=== PATIENT | female | born 1935 | race African-American/Black ===

== ENCOUNTER 2018-06-08 09:47 | Inpatient (IN) | payer MEDICARE, OTHER ==
[2018-06-08] VITALS (27 sets, daily range): BP systolic 120–169; BP diastolic 61–111
[~2018-06-08] VITALS: Ht 167.6 cm; Wt 83.9 kg
[~2018-06-08 09:47] MED LIST: AMIODARONE HCL200 MG; AMLODIPINE BESY10 MG; CLONIDINE HCL0.2 MG PO; CLONIDINE HCL0.3 MG PO; HYDRALAZINE HCL50 MG PO; ISOSORBIDE DINI30 MG PO; LOPRESSOR25 MG PO; ULTRAM 50MG50 MG; Z.0.ASPIR 8181 MG PO; Z.0.BYSTOLIC10 MG PO; Z.0.CLONIDINE HCL0.2 PO; Z.0.CYMBALTA30 MG PO; Z.0.HYDRALAZINE HCL2 PO; Z.0.MOTRIN800 MG PO; Z.0.PLAVIX75 MG PO; Z.0.VITAMIN D3 1,01 PO; Z.6.FISH OIL 1,0001 PO; [UNRECOGNIZED DRUG - OTHER] GT
--- OUTSIDE RECORDS SUMMARY | 2018-06-08 09:52 | XMS REPORT | Summary of Care ---
Author Organization Unknown Address Unknown Phone Unavailable Encounter HQ Tyrone_lauro(KEELEY) [id number] Date(s): 11/14/14 - 11/14/14 [facility] [address] [place] [address]- [phone] Discharge Disposition: Home Physician Attending: Celi Parker MD Physician_Referring: Celi Parker MD Vital Signs No data available for this section Problem List Condition Effective Dates Status Health Status Informant Acid Resolved reflux(Confirmed) Anxiety(Confirmed) Active CAD - Coronary Active artery disease(Confirmed) DM - Diabetes Active mellitus(Confirmed) Gastritis(Confirmed) Active HTN - Active Hypertension(Confirm ed) Hypertension(Confirm Resolved ed) 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) Neuropathy(Confirmed Resolved ) Allergies, Adverse Reactions, Alerts Substance Reaction Severity Status codeine Active Medications No data available for this section Results No data available for this section Immunizations Vaccine Date Refusal Reason influenza virus vaccine, inactivated 10/05/14 Patient Refuses pneumococcal 23-valent vaccine 10/05/14 pneumococcal 23-valent vaccine 12/11/11 Procedures Procedure Date Related Diagnosis Body Site Back fusion Gallbladder operation Hysterectomy Knee replacement Social History Social History Type Response Smoking Status Never smoker; Exposure to Tobacco Smoke None; Cigarette Smoking Last 365 Days No; Reg Smoking Cessation Counseling No Assessment and Plan No data available for this section
--- OUTSIDE RECORDS SUMMARY | 2018-06-08 09:52 | XMS REPORT | Summary of Care ---
Author Author [facility] Organization [facility] Address Unknown Phone Unavailable Encounter HQ Mirir_lauro(FIN) [id number] Date(s): 07/31/15 - 07/31/15 [facility] [address] [place] [address]- Discharge Disposition: Home Attending Physician: Ruth Yañez MD Referring Physician: Ruth Yañez MD Vital Signs No data available for [...]
--- OUTSIDE RECORDS SUMMARY | 2018-06-08 09:52 | XMS REPORT | Summary of Care ---
Author Author [facility] Organization [facility] Address Unknown Phone Unavailable Encounter EWA Stratton(KEELEY) [id number] Date(s): 09/12/16 - 09/12/16 [facility] [address] [place] [address]- Discharge Disposition: Home or Self Care Attending Physician: Carlota Chicas MD Referring Physician: Carlota Chicas MD Vital Signs No data available for [...] No data available for this section Results CHEM PANEL Most recent to 1 oldest [Reference Range]: eGFR 83 mL/min/1.73m2 1 *NA* (09/12/16 11:03 AM) POC Creatinine 0.7 mg/dL [0.5-1.4 mg/dL] (09/12/16 11:03 AM) 1Result Comment: The eGFR is calculated using the CKD-EPI formula. In most young, healthy individuals the eGFR will be >90 mL/min/1.73m2. The eGFR declines with age. An eGFR of 60-89 may be normal in some populations, particularly the elderly, for whom the CKD-EPI formula has not been extensively validated. Use of the eGFR is not recommended in the following populations: Individuals with unstable creatinine concentrations, including patients and those with serious co-morbid conditions. Patients with extremes in muscle mass or diet. The data above are obtained from the National Kidney Disease Education Program ( NKDEP) which additionally recommends that when the eGFR is used in patients with extremes of body mass index for purposes of drug dosing, the eGFR should be mul tiplied by the estimated BMI. Immunizations Given and Recorded Vaccine Date Status Refusal Reason pneumococcal 23-valent vaccine 10/05/14 Given pneumococcal 23-valent vaccine 12/11/11 Given Not Given Vaccine Date Status Refusal Reason influenza virus vaccine, inactivated 10/05/14 Not Given Patient Refuses Procedures Procedure Date Related Diagnosis Body Site Back fusion Gallbladder operation Hysterectomy Knee replacement Social History Social History Type Response Smoking Status Never smoker; Exposure to Tobacco Smoke None; Cigarette Smoking Last 365 Days No; Reg Smoking Cessation Counseling No Assessment and Plan No data available for this section
--- OUTSIDE RECORDS SUMMARY | 2018-06-08 09:52 | XMS REPORT | Summary of Care ---
Author Author [facility] Organization [facility] Address Unknown Phone Unavailable Encounter HQ Mirir_lauro(FIN) [id number] Date(s): 08/07/16 - 08/07/16 [facility] [address] [place] [address]- Discharge Disposition: Home or Self Care Attending Physician: Ruth Yañez MD Referring Physician: [...] No data available for this section Immunizations Given and Recorded Vaccine Date Status [...]
--- OUTSIDE RECORDS SUMMARY | 2018-06-08 09:52 | XMS REPORT | Summary of Care ---
Author Author [facility] Organization [facility] Address Unknown Phone Unavailable Encounter HQ Enriquentr_lauro(FIN) [id number] Date(s): 12/14/15 - 12/14/15 [facility] [address] [place] [address]- Discharge Disposition: Home Attending Physician: Celi Parker MD Referring Physician: Celi Parker MD Vital Signs No data [...]
--- OUTSIDE RECORDS SUMMARY | 2018-06-08 09:52 | XMS REPORT | CCD ---
Author Author Auto Generated Organization [facility] Address Unknown Phone Unavailable Care Team Providers Care Front Counter Attendant Name Role Phone Natalie Garcia V RP Allergies, Adverse Reactions, Alerts Substance Reaction Status aspirin Canceled caffeine Canceled codeine Active Problem List Condition Effective Dates Status Back pain Active CAD - Coronary artery disease Active HTN - Hypertension Active Medications Medication Instructions Start Date End Date Status pneumococcal 0.5 ml, Route: IM, Drug Form: INJ, 08/16/2010 08/16/2010 Completed 23-valent vaccine Start date: 08/16/10 9:00:00, Stop date: 08/16/10 9:00:00 potassium chloride 20 mEq, 100 mL, Route: IVPB, Drug 11/26/2011 11/26/2011 Ordered form: INJ, ONCE, Start date: 11/26/11 12:10:00, Stop date: 11/26/11 12:10:00 pneumococcal 0.5 ml, Route: IM, Drug Form: INJ, 12/12/2008 12/13/2008 Completed 23-valent vaccine ONCALL, Start date: 12/12/08 18:05:50, Stop date: 01/11/09 17:50:50 Immunizations Vaccine Date Status pneumococcal 23-valent vaccine 12/13/2008 Not Done pneumococcal 23-valent vaccine 08/16/2010 Not Done Vital Signs Most recent to oldest [Reference Range]: 1 Height 165.10 cm (11/26/2011 10:36:00) Weight 74.545 kg (11/26/2011 10:36:00) Results CHEMISTRY Most recent to oldest [Reference Range]: 1 Sodium Lvl [135-145 mEq/L] 142 mEq/L (11/26/2011 10:30:00) Potassium Lvl [3.5-5.1 mEq/L] 3.4 mEq/L *LOW* (11/26/2011 10:30:00) Chloride Lvl [95-109 mEq/L] 108 mEq/L (11/26/2011 10:30:00) CO2 [24-32 mEq/L] 27 mEq/L (11/26/2011 10:30:00) AGAP [10.0-20.0 mEq/L] 10.4 mEq/L (11/26/2011 10:30:00) Creatinine Lvl [0.5-1.4 mg/dL] 0.9 mg/dL (11/26/2011 10:30:00) BUN [7-22 mg/dL] 14 mg/dL (11/26/2011 10:30:00) Glucose Lvl [70-99 mg/dL] 85 mg/dL 1 (11/26/2011 10:30:00) Calcium Lvl [8.5-10.5 mg/dL] 9.2 mg/dL (11/26/2011 10:30:00) 1Interpretive Data: Adult reference range values reflect the clinical guidelinesof the [place] [employer]. HEMATOLOGY Most recent to oldest [Reference Range]: 1 WBC [3.7-10.4 K/CMM] 7.4 K/CMM (11/26/2011 10:30:00) RBC [4.20-5.40 M/CMM] 4.08 M/CMM *LOW* (11/26/2011 10:30:00) Hgb [12.0-16.0 g/dL] 11.8 g/dL *LOW* (11/26/2011 10:30:00) Hct [36.0-48.0 %] 36.1 % (11/26/2011 10:30:00) MCV [81.0-99.0 fL] 88.6 fL (11/26/2011 10:30:00) MCH [27.0-31.0 pg] 28.9 pg (11/26/2011 10:30:00) MCHC [32.0-36.0 g/dL] 32.6 g/dL (11/26/2011 10:30:00) RDW [11.5-14.5 %] 14.0 % (11/26/2011 10:30:00) Platelet [133-450 K/CMM] 164 K/CMM (11/26/2011 10:30:00) MPV [7.4-10.4 fL] 7.8 fL (11/26/2011 10:30:00) Segs [45.0-75.0 %] 65.4 % (11/26/2011 10:30:00) Lymphocytes [20.0-40.0 %] 24.6 % (11/26/2011 10:30:00) Monocytes [2.0-12.0 %] 6.5 % (11/26/2011 10:30:00) Eosinophils [0.0-4.0 %] 2.8 % (11/26/2011 10:30:00) Basophils [0.0-1.0 %] 0.7 % (11/26/2011 10:30:00) Segs-Bands # [1.5-8.1 K/CMM] 4.8 K/CMM (11/26/2011 10:30:00) Lymphocytes # [1.0-5.5 K/CMM] 1.8 K/CMM (11/26/2011 10:30:00) Monocytes # [0.0-0.8 K/CMM] 0.5 K/CMM (11/26/2011 10:30:00) Eosinophils # [0.0-0.5 K/CMM] 0.2 K/CMM (11/26/2011 10:30:00) Basophils # [0.0-0.2 K/CMM] 0.0 K/CMM (11/26/2011 10:30:00) PT [12.0-14.7 seconds] 12.9 seconds (11/26/2011 10:30:00) INR [0.85-1.17] 0.97 2 (11/26/2011 10:30:00) PTT [22.9-35.8 seconds] 32.8 seconds 3 (11/26/2011 10:30:00) 2Interpretive Data: RECOMMENDED RANGES FOR PROTIME INR: 2.0-3.0 for most medical and surgical thromboembolic states. 2.5-3.5 for artificial heart valves and recurrent embolism.INR SHOULD BE USED ONLY FOR PATIENTS ON STABLE ANTICOAGULANT THERAPY. 3Interpretive Data: Heparin Therapeutic Range: 57 - 92 Seconds
--- OUTSIDE RECORDS SUMMARY | 2018-06-08 09:52 | XMS REPORT | Continuity of Care Document ---
Author Author [facility] Interface Address Unknown Phone Unavailable Problems Problem Status Onset Date Classification Date Reported Comments Source CHF (CONGESTIVE HEART FAILURE), HEADACHE Active 03/29/2018 [facility] ELEVATED R/P Active 03/29/2018 [facility] Encounter for screening mammogram for malignant neoplasm of breast 09/02/2017 12/07/2017 [facility] SCREENING Active 08/03/2017 [facility] Discharge Diagnosis: Acute non intractable tension-type headache 05/05/2017 05/08/2017 [facility] Discharge Diagnosis: Essential hypertension 05/05/2017 05/08/2017 [facility] HYPERTENSION Active 05/05/2017 [facility] HTN UNCONTROLLED Active 03/22/2017 [facility] ELEVATED BLOOD PRESSURE Active 03/22/2017 [facility] E04.1 Active 01/11/2017 [facility] DX: K59.00=CONSTIPATION, UNSPECIFIED, K2 Active 09/10/2016 [facility] ROUTINE Active 07/02/2016 [facility] 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50 Active 11/24/2011 [facility] RTN Active 06/16/2011 [facility] IBS, GE REFLUX W/O ESOPHAGITIS, CONSTIPATION ENTE Active 04/24/2011 [facility] Back pain Active Problem 03/06/2012 [facility] CAD - Coronary artery disease Active Problem 03/06/2012 [facility] HTN - Hypertension Active Problem 12/14/2011 [facility] [place] Anxiety Active Problem 03/06/2012 [facility] DM - Diabetes mellitus Active Problem 03/06/2012 [facility] Gastritis Active Problem 03/06/2012 [facility] HTN - Hypertension Active Problem 03/06/2012 [facility] Acid reflux Resolved Problem 12/07/2017 [facility] Anxiety Active Problem 12/07/2017 [facility] CAD - Coronary artery disease Active Problem 12/07/2017 [facility] DM - Diabetes mellitus Active Problem 01/18/2017 [facility] Gastritis Active Problem 12/07/2017 [facility] HTN - Hypertension Active Problem 12/07/2017 [facility] Hypertension Active Problem 12/07/2017 [facility] Neuropathy Active Problem 12/07/2017 [facility] DM (<span [id number]</span>) Active Problem 12/07/2017 [facility] Hyperlipemia Active Problem 12/07/2017 [facility] Stented coronary artery Active Problem 12/07/2017 [facility] SCREEN MAMMOGRAM NEC Active [facility] IRRITABLE BOWEL SYNDROME Active [facility] CONSTIPATION NOS Active [facility] ESOPHAGEAL REFLUX Active [facility] LUMBAR SPINE Active [facility] CHEST PAIN NOS Active [facility] CRNRY ATHRSCL NATVE V[employer] Active [facility] CYST OF THYROID Active [facility] ABDMNAL PAIN OTH SPCF ST Active [facility] NONTOX MULTINODUL GOITER Active [facility] ENCNTR SCREEN MAMMOGRAM FOR MALIGNANT NE Active [facility] NONTOXIC MULTINODULAR GOITER Active [facility] CONSTIPATION, UNSPECIFIED Active [facility] NONTOXIC SINGLE THYROID NODULE Active [facility] ESSENTIAL (PRIMARY) HYPERTENSION Active [facility] HEART FAILURE, UNSPECIFIED Active [facility] HEADACHE Active [facility] Medications Medication Details Route Status Patient Instructions Ordering Provider Order Date Source NIFEdipine 60 mg oral tablet, extended release 60 mg=1 tab, PO, Q12H, # 30 tab, 0 Refill(s) Active 03/31/2017 [facility] AMIODarone 200 mg oral tablet 200 mg=1 tab, PO, Daily, # 30 tab, 0 Refill(s) Active 03/31/2017 [facility] Docusate Sodium 100 MG Oral Capsule [Colace] 100 mg, 1 cap, Route: PO, Drug form: CAP, BID, Dosing Weight 75, kg, PRN Constipation, Start date: 03/28/17 23:16:00 CDT, Duration: 30 day, Stop date: 04/27/17 23:15:00 CDTNotes: (Same as: Colace) (Do Not Crush) No Longer Active 03/29/2017 [facility] Amiodarone 200 mg, 1 tab, Route: PO, Drug form: TAB, Daily, Dosing Weight 75, kg, Start date: 03/27/17 21:00:00 CDT, Duration: 30 day, Stop date: 04/26/17 9:00:00 CDTNotes: (Same as: Cordarone) No Longer Active 03/28/2017 [facility] NIFEdipine 60 mg oral tablet, extended release 60 mg, 1 tab, Route: PO, Drug form: ERTAB, Q12H, Dosing Weight 75, kg, Start date: 03/25/17 21:00:00 CDT, Duration: 30 day, Stop date: 04/24/17 9:00:00 CDTNotes: (Same as: Adalat CC, Procardia XL) Give on empty stomach. Take 1 hour before or 2 hours after meal; "Avoid grapefruit and grapefruit juice". Do not crush No Longer Active 03/26/2017 [facility] Protonix 40 mg, 1 tab, Route: PO, Drug form: ECTAB, Before Dinner, Dosing Weight 75, kg, Start date: 03/24/17 16:30:00 CDT, Duration: 30 day, Stop date: 04/22/17 16:30:00 CDTNotes: Tablet should not be chewed or crushed. (Same as: Protonix) No Longer Active 03/24/2017 [facility] Maalox Advanced Regular Strength SUSP 30 mL, Route: PO, Drug Form: SUSP, Dosing Weight 75, kg, Q8H, PRN Heartburn, NOW, Start date: 03/24/17 16:11:00 CDT, Duration: 30 day, Stop date: 04/23/17 16:10:00 CDTNotes: (aluminum hydroxide-magnesium hyd-simethicone [phone]/5ml 30 ml ud TANNA) No Longer Active 03/24/2017 [facility] Spironolactone 50 mg, 1 tab, Route: PO, Drug form: TAB, Daily, Dosing Weight 75, kg, Start date: 03/24/17 9:00:00 CDT, Duration: 30 day, Stop date: 04/22/17 9:00:00 CDTNotes: (Same As: Aldactone) Inactive 03/24/2017 [facility] Acetylcysteine 200 MG/ML Inhalant Solution 600 mg, 3 mL, Route: PO, Drug form: SOLN, Q12H, Dosing Weight 75, kg, Start date: 03/24/17 9:00:00 CDT, Duration: 4 doses or times, Stop date: 03/25/17 21:00:00 CDT No Longer Active 03/24/2017 [facility] Lovenox 40 mg, 0.4 mL, Route: SUB-Q, Drug form: INJ, [id number], Dosing Weight 75, kg, Start date: 03/24/17 9:00:00 CDT, Duration: 30 day, Stop date: 04/22/17 9:00:00 CDTNotes: (Same as: Lovenox) No Longer Active 03/24/2017 [facility] sodium chloride 0.45% 1000 ml INJ 1,000 mL 1,000 mL, Rate: 75 ml/hr, Infuse over: 13.3 hr, Route: IV, Dosing Weight 75 kg, Total Volume: 1,000, Start date: 03/24/17 8:43:00 CDT, Duration: 30 day, Stop date: 04/23/17 8:42:00 CDT No Longer Active 03/24/2017 [facility] Digoxin 500 microgram, 2 mL, Route: IV, Drug form: INJ, ONCE, Dosing Weight 75, kg, Start date: 03/23/17 18:30:00 CDT, Stop date: 03/23/17 18:30:00 CDTNotes: (Same as: Lanoxin) Inactive 03/23/2017 [facility] Clonidine 0.2 mg, 1 tab, Route: PO, Drug form: TAB, Q12H, Dosing Weight 75, kg, Priority: NOW, Start date: 03/23/17 18:03:00 CDT, Duration: 30 day, Stop date: 04/22/17 9:00:00 CDTNotes: (Same As: Catapres) No Longer Active 03/23/2017 [facility] Nicardipine 40 mg, 200 mL, Rate: Titrate, Start Dose: 5 mg/hr, Titration: 2.5 mg/hr every 15 minutes, Goal(s): to keep SBP Notes: Same as: Cardene Concentration: (0.2 mg /1 ml ) No Longer Active 03/23/2017 [facility] Morphine 3 mg, 0.75 mL, Route: IV, Drug form: SOLN, Q2H, Dosing Weight 75, kg, PRN Pain Score 4-6, Start date: 03/23/17 10:37:00 CDT, Duration: 30 day, Stop date: 04/22/17 10:36:00 CDTNotes: (Same as:MORPhine Sulfate) No Longer Active 03/23/2017 [facility] Visipaque 75 mL, Route: IV, Drug form: SOLN, ONCE, Dosing Weight 75, kg, Start date: 03/23/17 9:08:00 CDT, Stop date: 03/23/17 9:08:00 CDTNotes: (Same as: Visipaque). WASTE: F/P - Black; E - Advanced Magn[facility] Lab Trash Bin No Longer Active 03/23/2017 [facility] Plavix 75 mg, 1 tab, Route: PO, Drug form: TAB, Daily, Dosing Weight 75, kg, Start date: 03/23/17 9:00:00 CDT, Duration: 30 day, Stop date: 04/21/17 9:00:00 CDTNotes: (Same As: Plavix) No Longer Active 03/23/2017 [facility] NIFEdipine 60 mg oral tablet, extended release 60 mg, 1 tab, Route: PO, Drug form: ERTAB, BID, Dosing Weight 75, kg, Start date: 03/23/17 9:00:00 CDT, Duration: 30 day, Stop date: 04/21/17 21:00:00 CDTNotes: (Same as: Adalat CC, Procardia XL) Give on empty stomach. Take 1 hour before or 2 hours after meal; "Avoid grapefruit and grapefruit juice". Do not crush Inactive 03/23/2017 [facility] Streptococcus pneumoniae serotype 1 capsular antigen diphtheria [id number] protein conjugate vaccine / Streptococcus pneumoniae serotype 14 capsular antigen diphtheria [id number] protein conjugate vaccine / Streptococcus pneumoniae serotype 18C capsular antigen d 0.5 mL, Route: IM, Drug Form: INJ, Daily, Start date: 03/23/17 9:00:00 CDT, Stop date: 03/23/17 21:00:00 CDTNotes: Shake well prior to use (Same as: Prevnar 13) No Longer Active 03/23/2017 [facility] Zofran 4 mg, 2 mL, Route: IV, Drug form: INJ, Q4H, Dosing Weight 75, kg, PRN as needed for nausea/vomiting, Start date: 03/23/17 7:56:00 CDT, Duration: 30 day, Stop date: 04/22/17 7:55:00 CDTNotes: (Same as: Zofran) MEDICATION WASTE Product Size: 4 mg Product Wasted: _0__ mg No Longer Active 03/23/2017 [facility] Dilaudid 0.5 mg, 0.5 mL, Route: IVP, Drug form: INJ, ONCE, Dosing Weight 75, kg, Priority: STAT, Start date: 03/23/17 2:32:00 CDT, Stop date: 03/23/17 2:32:00 CDT Inactive 03/23/2017 [facility] Tylenol 650 mg, 2 tab, Route: PO, Drug form: TAB, Q6H, Dosing Weight 75, kg, PRN Pain Score 1-3, Start date: 03/22/17 23:26:00 CDT, Duration: 30 day, Stop date: 04/21/17 23:25:00 CDTNotes: Do not exceed 4 gm/day. (Same as: Tylenol) No Longer Active 03/23/2017 [facility] NIFEdipine 60 mg oral tablet, extended release 60 mg, 1 tab, Route: PO, Drug form: ERTAB, Q12H, Dosing Weight 75, kg, Start date: 03/22/17 21:00:00 CDT, Duration: 30 day, Stop date: 04/21/17 9:00:00 CDT No Longer Active 03/23/2017 [facility] metoprolol tartrate 100 mg, 2 tab, Route: PO, Drug form: TAB, Q12H, Dosing Weight 75, kg, Start date: 03/22/17 21:00:00 CDT, Duration: 30 day, Stop date: 04/21/17 9:00:00 CDTNotes: (Same as: Lopressor) Inactive 03/23/2017 [facility] Bystolic 20 mg, 2 tab, Route: PO, Drug form: TAB, BID, Dosing Weight 75, kg, Start date: 03/22/17 21:00:00 CDT, Duration: 30 day, Stop date: 04/21/17 9:00:00 CDTNotes: (same as: Bystolic) No Longer Active 03/23/2017 [facility] Mupirocin 0.02 MG/MG Nasal Ointment [Bactroban] 1 appl, Route: NASAL, Q12H, Drug form: OINT, Start date: 03/22/17 21:00:00 CDT, Duration: 5 day, Stop date: 03/27/17 9:00:00 CDT, MRSA decolonization No Longer Active 03/23/2017 [facility] Hydralazine 20 mg, 1 mL, Route: IV, Drug form: INJ, Q4H, Dosing Weight 75, kg, PRN Elevated BP, Start date: 03/22/17 17:25:00 CDT, Duration: 30 day, Stop date: 04/21/17 17:24:00 CDT, SBP > 160Notes: (Same as: Ap resoline) Push over 5 minutes No Longer Active 03/22/2017 [facility] Bystolic 20 mg, 2 tab, Route: PO, Drug form: TAB, BID, Dosing Weight 75, kg, Start date: 03/22/17 17:00:00 CDT, Duration: 30 day, Stop date: 04/21/17 9:00:00 CDTNotes: (same as: Bystolic) Inactive 03/22/2017 [facility] Alprazolam 0.5 MG Oral Tablet [Xanax] 0.5 mg, 1 tab, Route: PO, Drug form: TAB, Q8H, Dosing Weight 75, kg, PRN Anxiety, Start date: 03/22/17 16:54:00 CDT, Duration: 30 day, Stop date: 04/21/17 16:53:00 CDTNotes: With food or milk (Same as: Xanax) No Longer Active 03/22/2017 [facility] Valium 10 mg, 2 tab, Route: PO, Drug form: TAB, ONCE, Dosing Weight 75, kg, PRN See Nurse's Notes, Start date: 03/22/17 16:49:00 CDTNotes: (Same as: Valium) No Longer Active 03/22/2017 [facility] pantoprazole 40 MG Enteric Coated Tablet [Protonix] 40 mg=1 tab, PO, BID, 0 Refill(s) Active 03/22/2017 [facility] nebivolol 20 MG Oral Tablet [Bystolic] 20 mg=1 tab, PO, Daily, # 90 tab, 1 Refill(s) Active 03/22/2017 [facility] tramadol hydrochloride 50 MG Oral Tablet [Ultram] 50 mg, 1 tab, Route: PO, Drug form: TAB, Q6H, Dosing Weight 75, kg, PRN Pain Score 1- 3, Start date: 03/22/17 14:14:00 CDT, Duration: 30 day, Stop date: 04/21/17 14:13:00 CDTNotes: Not to exceed 400mg/day. (Same As: Ultram) No Longer Active 03/22/2017 [facility] spironolactone 50 mg oral tablet 50 mg=1 tab, PO, Daily, # 30 tab, 1 Refill(s) Active 03/22/2017 [facility] aliskiren 150 MG Oral Tablet [Tekturna] 150 mg=1 tab, PO, Daily, # 30 tab, 0 Refill(s) Active 03/22/2017 [facility] Furosemide 20 MG Oral Tablet 20 mg=1 tab, PO, Daily, # 30 tab, 0 Refill(s) Active 03/22/2017 [facility] Hydralazine 20 mg, 1 mL, Route: IV, Drug form: INJ, Q6H, Dosing Weight 75, kg, PRN Elevated BP, Start date: 03/22/17 14:12:00 CDT, Duration: 30 day, Stop date: 04/21/17 14:11:00 CDT, SBP > 160Notes: (Same as: Ap resoline) Push over 5 minutes Inactive 03/22/2017 [facility] Hydralazine 5 mg, Route: IVP, ONCE, Dosing Weight 75, kg, Priority: STAT, Start date: 03/22/17 13:57:00 CDT, Stop date: 03/22/17 13:57:00 CDT Inactive 03/22/2017 [facility] Norvasc 10 mg, Route: PO, ONCE, Dosing Weight 75, kg, Start date: 03/22/17 13:42:00 CDT, Stop date: 03/22/17 13:42:00 CDT Inactive 03/22/2017 [facility] Clonidine 0.3 mg, Route: PO, Drug form: TAB, ONCE, Dosing Weight 75, kg, Priority: STAT, Start date: 03/22/17 12:06:00 CDT, Stop date: 03/22/17 12:06:00 CDT Inactive 03/22/2017 [facility] Saline Flush 0.9% 10 mL, Route: IVP, Drug Form: INJ, Dosing Weight 75, kg, PRN, PRN Line Flush, Start date: 03/22/17 11:52:00 CDT, Duration: 30 day, Stop date: 04/21/17 11:51:00 CDTNotes: (Same as: BD Posiflush) No Longer Active 03/22/2017 [facility] Clonidine Hydrochloride 0.3 MG Oral Tablet 0.3 mg=1 tab, PO, QID, 0 Refill(s) Active 10/05/2014 [facility] Fish Oil 1,000 mg, 1 cap, Route: PO, Drug form: CAP, Daily, Dosing Weight 76.6, kg, Start date: 10/05/14 9:00:00, Duration: 30 day, Stop date: 11/03/14 9:00:00Notes: (Same as: MaxEPA, [facility] fish oil ) Non- Formulary Drug Inactive 10/05/2014 [facility] Ascorbic Acid / Beta Carotene / cuprous oxide / Lutein / sodium selenate / Vitamin E / Zinc Oxide 1 tab, Route: PO, Drug Form: TAB, Dosing Weight 76.6, kg, Daily, Start date: 10/05/14 9:00:00, Duration: 30 day, Stop date: 11/03/14 9:00:00Notes: (Same as:Thera-M, Theragran-M) Give with food. Inactive 10/05/2014 [facility] Aspirin 81 MG Enteric Coated Tablet 162 mg, 2 tab, Route: PO, Drug form: ECTAB, Daily, Dosing Weight 76.6, kg, Start date: 10/05/14 9:00:00, Duration: 30 day, Stop date: 11/03/14 9:00:00Notes: Do not crush or chew. (Same As: Ecotrin) Inactive 10/05/2014 [facility] pneumococcal capsular polysaccharide type 1 vaccine / pneumococcal capsular polysaccharide type 10A vaccine / pneumococcal capsular polysaccharide type 11A vaccine / pneumococcal capsular polysaccharide type 12F vaccine / pneumococcal capsular polysacchar 0.5 ml, Route: IM, Drug Form: INJ, Daily, Start date: 10/05/14 9:00:00, Duration: 1 doses or times, Stop date: 10/05/14 9:00:00Notes: (Same as: Pneumovax 23) Refrigerate Inactive 10/05/2014 [facility] Influenza Virus Vaccine, Inactivated P-Wedlfxec-87-2007 (H3N2)-like virus (T-Shqjgok-732-2007 [facility] X-175C) strain / Influenza Virus Vaccine, Inactivated K-Fdmglipp-74-2007, IVR-148 (H1N1) strain / Influenza Virus Vaccine, Inactivated, Y-Fpwynko-8-lik 0.5 mL, Route: IM, Drug Form: SUSP, Daily, Start date: 10/05/14 9:00:00, Duration: 1 doses or times, Stop date: 10/05/14 9:00:00Notes: (Same as: Fluzone Quadrivalent) Inactive 10/05/2014 [facility] Plavix 75 mg, 1 tab, Route: PO, Drug form: TAB, Daily, Dosing Weight 76.6, kg, Start date: 10/05/14 9:00:00, Duration: 30 day, Stop date: 11/03/14 9:00:00Notes: (Same As: Plavix) Inactive 10/05/2014 [facility] Clonidine Hydrochloride 0.3 MG Oral Tablet 0.3 mg, 1 tab, Route: PO, Drug form: TAB, QID, Dosing Weight 76.6, kg, Start date: 10/05/14 9:00:00, Duration: 30 day, Stop date: 11/03/14 21:00:00Notes: (Same As: Catapres) Inactive 10/05/2014 [facility] metoprolol tartrate 100 mg, 2 tab, Route: PO, Drug form: TAB, Q12H, Dosing Weight 76.6, kg, Start date: 10/05/14 9:00:00, Duration: 30 day, Stop date: 11/03/14 21:00:00Notes: (Same as: Lopressor) Inactive 10/05/2014 [facility] Clonidine Hydrochloride 0.1 MG Oral Tablet 0.1 mg, Route: PO, Drug form: TAB, BID, Dosing Weight 76.6, kg, Start date: 10/05/14 9:00:00, Duration: 30 day, Stop date: 11/03/14 17:00:00 Inactive 10/05/2014 [facility] Saline Flush 0.9% 10 ml, Route: IVP, Drug Form: INJ, Dosing Weight 67.273, kg, Q12H, Start date: 10/05/14 9:00:00, Duration: 30 day, Stop date: 11/03/14 21:00:00Notes: (Same as: BD Posiflush) Inactive 10/05/2014 [facility] aspirin 325 mg tablet 325 mg, 1 tab, Route: PO, Drug form: TAB, Daily, Dosing Weight 67.273, kg, Start date: 10/05/14 9:00:00, Duration: 30 day, Stop date: 11/03/14 9:00:00Notes: Take with food. Inactive 10/05/2014 [facility] Fentanyl 1 patch, Route: TOP, Drug form: ERFILM, Q72H, Dosing Weight 76.6, kg, Start date: 10/05/14 6:00:00, Duration: 30 day, Stop date: 11/01/14 6:00:00Notes: (Same as: Duragesic) Check for product integrity. Apply to intact skin "Remove old patch before application of new patch" Inactive 10/05/2014 [facility] Clonidine Hydrochloride 0.1 MG Oral Tablet 0.1 mg, 1 tab, Route: PO, Drug form: TAB, ONCE, Dosing Weight 76.6, kg, Start date: 10/05/14 5:22:00, Stop date: 10/05/14 5:22:00Notes: (Same As: Catapres) Inactive 10/05/2014 [facility] Clonidine Hydrochloride 0.3 MG Oral Tablet 0.3 mg, 1 tab, Route: PO, Drug form: TAB, ONCE, Dosing Weight 67.273, kg, Start date: 10/05/14 1:28:00, Stop date: 10/05/14 1:28:00Notes: (Same As: Catapres) Inactive 10/05/2014 [facility] Saline Flush 0.9% 10 ml, Route: IVP, Drug Form: INJ, Dosing Weight 67.273, kg, PRN, PRN Line Flush, Start date: 10/04/14 22:12:00, Duration: 30 day, Stop date: 11/03/14 23:11:00Notes: (Same as: BD Posiflush) No Longer Active 10/05/2014 [facility] heparin additive 25,000 unit [12 unit/kg/hr] + Premix Diluent Dextrose 5% 500 mL 500 mL, Rate: 16.15 ml/hr, Infuse over: 31 hr, Route: IV, Dosing Weight 67.273 kg, Total Volume: 500 mL, Start date: 10/04/14 22:12:00, Duration: 30 day, Stop date: 11/03/14 22:11:00 Inactive 10/05/2014 [facility] heparin sodium, porcine 1000 UNT/ML Injectable Solution Pharmacy To Manage, Route: IVP, PRN, Drug form: INJ, PRN, Heparin Protocol, Start date: 10/04/14 22:12:00 Stop date: 11/03/14 23:11:00, 30 day Inactive 10/05/2014 [facility] heparin sodium, porcine 5000 UNT/ML Injectable Solution 4,000 unit, Route: IV, Drug form: INJ, ONCE, Dosing Weight 67.273, kg, Priority: STAT, Start date: 10/04/14 22:12:00, Stop date: 10/04/14 22:12:00 Inactive 10/05/2014 [facility] Nitroglycerin 0.4 mg, 1 tab, Route: SL, Drug form: TAB, Q5Min, Dosing Weight 67.273, kg, PRN Chest Pain, Start date: 10/04/14 22:12:00, Duration: 3 doses or times, Stop date: Limited # of timesNotes: (Same as:Nitroqu ick, Nitrostat) "Do Not Crush" Sublingual tablet No Longer Active 10/05/2014 [facility] Saline Flush 0.9% 10 ml, Route: IVP, Drug Form: INJ, Dosing Weight 67.273, kg, Q12H, Start date: 10/04/14 21:00:00, Duration: 30 day, Stop date: 11/03/14 9:00:00Notes: (Same as: BD Posiflush) No Longer Active 10/05/2014 [facility] fentaNYL 50 mcg/hr transdermal film, extended release 1 patch, TOP, Q72H, 0 Refill(s) No Longer Active 10/05/2014 [facility] Metoprolol Tartrate 100 mg oral tablet 100 mg=1 tab, PO, BID, # 60 tab, 0 Refill(s) Active 10/05/2014 [facility] Clonidine Hydrochloride 0.3 MG Oral Tablet 0.3 mg, PO, QID, # 60 tab, 0 Refill(s) No Longer Active 10/05/2014 [facility] Saline Flush 0.9% 10 ml, Route: IVP, Drug Form: INJ, Dosing Weight 67.273, kg, PRN, PRN Line Flush, Start date: 10/04/14 20:24:00, Duration: 30 day, Stop date: 11/03/14 21:23:00Notes: (Same as: BD Posiflush) No Longer Active 10/05/2014 [facility] Potassium Chloride 20 mEq, 100 mL, Route: IVPB, Drug form: INJ, Q2H, Dosing Weight 70.455, kg, Total dose=60 mEq, Start date: 10/04/14 18:00:00, Duration: 3 doses or times, Stop date: 10/04/14 22:00:00Notes: (Same as: KCL) Infuse no faster than 10 mEq/hr if given peripherally. Inactive 10/05/2014 [facility] heparin sodium, porcine 5000 UNT/ML Injectable Solution 4,000 unit, Route: IV, Drug form: INJ, ONCE, Dosing Weight 70.455, kg, Priority: STAT, Start date: 10/04/14 16:22:00, Stop date: 10/04/14 16:22:00 Inactive 10/04/2014 [facility] heparin sodium, porcine 1000 UNT/ML Injectable Solution Route: IVP, PRN, 2,000 unit, 2 mL, Drug form: INJ, PRN, Heparin Protocol, Start date: 10/04/14 16:22:00 Stop date: 11/03/14 17:21:00, 30 day No Longer Active 10/04/2014 [facility] heparin additive 25,000 unit [12 unit/kg/hr] + Premix Diluent Dextrose 5% 500 mL 500 mL, Rate: 16.15 ml/hr, Infuse over: 31 hr, Route: IV, Dosing Weight 67.3 kg, Total Volume: 500 mL, Start date: 10/04/14 16:22:00, Duration: 30 day, Stop date: 11/03/14 16:21:00 No Longer Active 10/04/2014 [facility] Morphine 2 mg, Route: IVP, Drug form: INJ, ONCE, Dosing Weight 70.455, kg, Priority: STAT, Start date: 10/04/14 16:02:00, Stop date: 10/04/14 16:02:00 Inactive 10/04/2014 [facility] Nitroglycerin 0.4 mg, 1 tab, Route: SL, Drug form: TAB, Q5Min, Dosing Weight 70.455, kg, PRN Chest Pain, Priority: STAT, Start date: 10/04/14 16:02:00, Duration: 3 doses or times, Stop date: Limited # of timesNote s: (Same as:Nitroquick, Nitrostat) "Do Not Crush" Sublingual tablet Inactive 10/04/2014 [facility] Diltiazem 10 mg, Route: IVP, ONCE, Dosing Weight 70.455, kg, Priority: STAT, Start date: 10/04/14 15:44:00, Stop date: 10/04/14 15:44:00 Inactive 10/04/2014 [facility] Ondansetron 4 mg, Route: IVP, ONCE, Dosing Weight 70.455, kg, Priority: STAT, Start date: 10/04/14 15:41:00, Stop date: 10/04/14 15:41:00 Inactive 10/04/2014 [facility] aspirin 324 mg, Route: PO, ONCE, Dosing Weight 70.455, kg, Priority: STAT, Start date: 10/04/14 15:41:00, Stop date: 10/04/14 15:41:00 Inactive 10/04/2014 [facility] Saline Flush 0.9% 10 mL, Route: IVP, Drug Form: INJ, Dosing Weight 70.455, kg, PRN, PRN Line Flush, Start date: 10/04/14 15:41:00, Duration: 30 day, Stop date: 11/03/14 16:40:00Notes: (Same as: BD Posiflush) No Longer Active 10/04/2014 [facility] pneumococcal 23-valent vaccine 0.5 ml, Route: IM, Drug Form: INJ, Start date: 12/11/11 9:00:00, Stop date: 12/11/11 9:00:00 IM No Longer Active SYSTEM 12/11/2011 [facility] Lasix 40 mg oral tablet 40 mg, 1 tab, Route: PO, Drug form: TAB, Daily, Start date: 12/11/11 9:00:00, Duration: 30 day, Stop date: 01/09/12 9:00:00 PO No Longer Active Jose 12/11/2011 [facility] Fish Oil 1 gm, 1 cap, Route: PO, Drug form: CAP, Daily, Start date: 12/11/11 9:00:00, Duration: 30 day, Stop date: 01/09/12 9:00:00 PO No Longer Active Jose 12/11/2011 [facility] Exforge 5 mg-160 mg oral tablet 1 tab, Route: PO, Drug Form: TAB, Daily, Start date: 12/11/11 9:00:00, Duration: 30 day, Stop date: 01/09/12 9:00:00 PO No Longer Active [facility] 12/11/2011 [facility] Diovan 160 mg, 1 tab, Route: PO, Drug form: TAB, Daily, Start date: 12/11/11 9:00:00, Duration: 30 day, Stop date: 01/09/12 9:00:00 PO No Longer Active Jose 12/11/2011 [facility] Norvasc 5 mg, 1 tab, Route: PO, Drug form: TAB, Daily, Start date: 12/11/11 9:00:00, Duration: 30 day, Stop date: 01/09/12 9:00:00 PO No Longer Active Jose 12/11/2011 [facility] Plavix 75 mg, 1 tab, Route: PO, Drug form: TAB, QAM, Start date: 12/11/11 9:00:00, Duration: 30 day, Stop date: 01/09/12 9:00:00 PO No Longer Active Jose 12/11/2011 [facility] aspirin 325 mg tablet 325 mg, 1 tab, Route: PO, Drug form: TAB, Breakfast, Start date: 12/11/11 8:00:00, Duration: 30 day, Stop date: 01/09/12 8:00:00 PO No Longer Active Jose 12/11/2011 [facility] Restoril 30 mg, 2 cap, Route: PO, Drug form: CAP, Bedtime, Start date: 12/10/11 21:00:00, Duration: 30 day, Stop date: 01/08/12 21:00:00 PO No Longer Active Jose 12/11/2011 [facility] Pravachol 40 mg, 2 tab, Route: PO, Drug form: TAB, Bedtime, Start date: 12/10/11 21:00:00, Duration: 30 day, Stop date: 01/08/12 21:00:00 PO No Longer Active Jose 12/11/2011 [facility] metoprolol 50 mg, 1 tab, Route: PO, Drug form: ERTAB, Q12H, Start date: 12/10/11 21:00:00, Duration: 30 day, Stop date: 01/09/12 9:00:00 PO No Longer Active Jose 12/11/2011 [facility] hydrALAZINE 25 mg oral tablet 50 mg, 2 tab, Route: PO, Drug form: TAB, Q12H, Start date: 12/10/11 21:00:00, Duration: 30 day, Stop date: 01/09/12 9:00:00 PO No Longer Active Jose 12/11/2011 [facility] Multaq 400 mg, 1 tab, Route: PO, Drug form: TAB, Q12H, Start date: 12/10/11 21:00:00, Duration: 30 day, Stop date: 01/09/12 9:00:00 PO No Longer Active Jose 12/11/2011 [facility] cefazolin 1 gm, Route: IVPB, [id number], Start date: 12/10/11 18:00:00, Duration: 2 doses or times, Stop date: 12/11/11 2:00:00 IVPB No Longer Active Jose 12/10/2011 [facility] clonidine 0.1 mg oral tablet 0.1 mg, 1 tab, Route: PO, Drug form: TAB, [id number], Start date: 12/10/11 18:00:00, Duration: 30 day, Stop date: 01/09/12 6:00:00 PO No Longer Active Jose 12/10/2011 [facility] Xanax 0.25 mg oral tablet 0.25 mg, 1 tab, Route: PO, Drug form: TAB, Bedtime, PRN as needed for anxiety, Start date: 12/10/11 17:30:00, Duration: 30 day, Stop date: 01/09/12 17:29:00 PO No Longer Active Joes 12/10/2011 [facility] acetaminophen-hydrocodone 325 mg-7.5 mg oral tablet 1 tab, Route: PO, Drug Form: TAB, Q8H, PRN Pain, Start date: 12/10/11 17:25:00, Duration: 30 day, Stop date: 01/09/12 17:24:00 PO No Longer Active Jose 12/10/2011 [facility] morphine Sulfate 2 mg, 1 mL, Route: IVP, Drug form: INJ, Q10Min, PRN Chest Pain, Start date: 12/10/11 17:22:00, Duration: 30 day, Stop date: 01/09/12 17:21:00 IVP No Longer Active Jose 12/10/2011 [facility] nitroglycerin 0.4 mg sublingual tablet 0.4 mg, 1 tab, Route: SL, Drug form: TAB, Q5Min, PRN Chest Pain, Start date: 12/10/11 17:22:00, Duration: 30 day, Stop date: 01/09/12 17:21:00 SL No Longer Active Jose 12/10/2011 [facility] Multaq 400 mg oral tablet 400 mg, 1 tab, PO, BID, 60 tab, Substitution Allowed, TAB PO Active 12/10/2011 [facility] Lasix 40 mg oral tablet 40 mg, 1 tab, PO, Daily, 30 tab, Substitution Allowed, TAB PO Active 12/10/2011 [facility] hydrALAZINE 25 mg oral tablet 50 mg, 2 tab, PO, BID, Substitution Allowed, TAB PO Active 12/10/2011 [facility] Exforge 5 mg-160 mg oral tablet 1 tab, PO, Daily, 30 tab, Substitution Allowed, Maintenance, TAB PO Active 12/10/2011 [facility] Cymbalta 30 mg oral delayed release capsule Substitution Allowed No Longer Active 12/10/2011 [facility] clonidine 0.2 mg oral tablet 0.2 mg, 1 tab, PO, QID, Substitution Allowed, TAB PO Active 12/10/2011 [facility] Bystolic 10 mg oral tablet 10 mg, 1 tab, PO, Daily, 30 tab, Substitution Allowed, TAB PO Active 12/10/2011 [facility] potassium chloride 20 mEq, 100 mL, Route: IVPB, Drug form: INJ, ONCE, Start date: 11/26/11 12:10:00, Stop date: 11/26/11 12:10:00 IVPB Active Jose 11/26/2011 [facility] pneumococcal 23-valent vaccine 0.5 ml, Route: IM, Drug Form: INJ, Start date: 08/16/10 9:00:00, Stop date: 08/16/10 9:00:00 IM No Longer Active SYSTEM 08/16/2010 [facility] pneumococcal 23-valent vaccine 0.5 ml, Route: IM, Drug Form: INJ, ONCALL, Start date: 12/12/08 18:05:50, Stop date: 01/11/09 17:50:50 IM No Longer Active SYSTEM 12/12/2008 [facility] Allergies, Adverse Reactions, Alerts Substance Category Reaction Severity Reaction type Status Date Reported Comments Source codeine Assertion Drug allergy Active [facility] Immunizations Immunization Date Given Site Status Last Updated Comments Source pneumococcal 13-valent vaccine 03/24/2017 Right deltoid completed Es [facility] pneumococcal 23-valent vaccine 10/05/2014 Right Deltoid completed Isabel [facility] influenza virus vaccine, inactivated 10/05/2014 Not Given [facility] pneumococcal 23-valent vaccine 12/11/2011 completed [place]ford [facility] pneumococcal 23-valent vaccine 12/11/2011 Right deltoid completed [place] [facility] pneumococcal 23-valent vaccine 08/16/2010 Not Given Sanchez [facility] pneumococcal 23-valent vaccine 12/13/2008 Not Given Narron [facility] Results Order Name Results Value Reference Range Date Interpretation Comments Source Cardiac SPECT multi studies NM Cardiac SPECT multi studies NM Cardiac SPECT multi studies NM Age: 83 y/o Female Clinical Indication: - NONE; Comparison: None Technique: The patient was given Lexiscan (Regadenoson) -- 0.4 mg/5 mL dose -- for pharmacologic stress. The patient was injected intravenously with 11 mCi of technetium 99m Cardiolite for stress phase images. Subsequent resting phase images were obtained with 32.9 mCi of technetium 99m Cardiolite. Blood pressure fell from 178/100 to 151/90 during stress. Heart rate ainsley from 56 bpm at rest to 80 bpm at stress--which was 63% of the predicted maximum rate. PERFUSION STUDY: Comparison of resting and stress images reveals some minimal reversibility in the anterior wall of the left ventricle and also in the apical lateral region. Changes are small and of questionable hemodynamic significance. MOTION STUDY: The left ventricular ejection fraction is 53%. Gated imaging reveals no evidence of segmental wall motion abnormality. The left ventricular end systolic volume=41 mL. IMPRESSION: 1. Small areas of reversibility in the anterior (mild) and apical-lateral (moderate) regions of the left ventricle are consistent with some stress-induced ischemia. The apical lateral changes were present to degree on the previous examination as well. 2. Left ventricular ejection fraction 53%. SL: [id number] 03/31/2018 - - Read by: Gordo Arias MD Dictated Date/time: 04/02/18 11:50 Electronically Signed by: Gordo Arias MD 04/02/18 12:03 FINAL REPORT [facility] Brain CTA Brain CTA Patient Name: JHOAN DE LA GARZA : 1935. Age: 83 years. Gender: Female. MR: [id number]. Location: [facility]. Provider: Stephanie Bennett MD. EXAM: Brain CTA. PROVIDED CLINICAL HISTORY: Acute headache. TECHNIQUE: Pre-contrast axial images from the vertex through the skull base. Standard protocol for CT Angiogram of the intracranial arteries with iodinated intravenous contrast. Multiplanar MIP reformats. CONTRAST: Omnipaque 350, 100 mL. EXPOSURE: Total exam DLP is 650.05 mGy-cm. COMPARISON: CT Brain performed March 22, 2017. FINDINGS: CTA BRAIN: GENERAL ASSESSMENT: -- The [place], petrous and cavernous segments of the internal carotid arteries, the middle (M1, M2), anterior (A1, A2), and posterior (P1, P2) cerebral arteries, the basilar artery, and the imaged distal vertebral arteries are evaluated. -- Mild calcific atherosclerosis along the cavernous segments of the bilateral ICAs. No definite evidence of malformation, dissection, or other significant abnormality of the imaged arteries. STENOSIS / OCCLUSION: No significant flow-limiting stenosis. No abrupt termination of flow suggestive of occlusion. ANEURYSM: No definite intracranial aneurysm. Limited exam sensitivity and specificity for aneurysms smaller than 0.3 cm. VARIANT ANATOMY: No unusual or anomalous arterial anatomy. DURAL SINUSES: No significant filling defect suggestive of thrombosis or occlusion of the dural sinuses or larger cerebral veins. Limited assessment on this arterial phase exam. CT HEAD: No abnormal brain parenchymal, meningeal, or ependymal enhancement. Please reference the recent brain CT, which details additional findings, none of which have significantly changed. IMPRESSION (CT Head and CTA Brain): Mild calcific atherosclerosis involving the cavernous carotid arteries. No other significant abnormality of the intracranial arteries that would explain the patient's symptoms. SL: [id number] 03/29/2018 - - Read by: Tonio Slaughter MD Dictated Date/time: 03/29/18 17:41 Electronically Signed by: Tonio Slaughter MD 03/29/18 17:53 FINAL REPORT [facility] Chest 1view DX Chest 1view DX Patient Name: JHOAN DE LA GARZA : 1935; Age: 83 years y/o Female MR: [id number] Study: Chest 1view DX 03/29/2018 1:40 PM CDT Ordering Physician: Clinical Indication: - elevated BP; Comparison: March 22, 2017 CT 1 view chest Heart is enlarged. Pulmonary vasculature appears congested, and there are new increased interstitial opacities within the perihilar and lower lung zone regions. No pleural effusion. Chronic degenerative changes within the thoracic spine. IMPRESSION: Consider volume overload, CHF status. SL: [id number] 03/29/2018 - - Read by: Zak Law MD Dictated Date/time: 03/29/18 14:15 Electronically Signed by: Zak Law MD 03/29/18 14:16 FINAL REPORT [facility] Breast Mammo Scrn KALPESH incl CAD MA Breast Mammo Scrn KALPESH incl CAD MA BILATERAL DIGITAL SCREENING MAMMOGRAM WITH CAD: 08/31/2017 CLINICAL: /Screen. Current study was evaluated with a Computer Aided Detection (CAD) system. COMPARISON:Comparison is made to exams dated: 08/07/2016 mammogram, 07/31/2015 mammogram, 07/31/2014 mammogram, 07/28/2013 mammogram, 08/10/2012 mammogram, and 07/27/2012 mammogram - [facility]. TECHNIQUE: Mammographic views were obtained using digital acquisition. Scrippeda Version 1.3 was utilized for computer aided detection. FINDINGS: There are scattered fibroglandular densities in both breasts. Technologist indicates the exam is limited as the patient had difficulty standing and holding still during the exam. Best images obtained were submitted for review. There are benign vascular calcifications and calcifications in both breasts. No significant masses, calcifications, or other findings are seen in either breast. There has been no significant interval change. IMPRESSION: BENIGN RECOMMENDATION:There is no mammographic evidence of malignancy. A 1 year screening mammogram is recommended.(09/01/2018) This exam was interpreted at [id number] for [facility]. Catalina chong/clarita:08/31/2017 11:29:23 Operations Administrative Assistant(s): Ely Gibson, [facility] letter sent: BI-RADS 1/2 Mammogram BI-RADS: 2 Benign 08/31/2017 - - Read by: Catalina Dorado MD Dictated Date/time: 08/31/17 11:29 Electronically Signed by: Catalina Dorado MD 08/31/17 11:29 FINAL REPORT [facility] CARDIAC ENZYMES Total CK 60 unit/L 12 - 191 05/05/2017 [facility] CARDIAC ENZYMES CK MB null 0.5 - 3.6 05/05/2017 [facility] CARDIAC ENZYMES Troponin-I 0.05 ng/mL 0.00 - 0.40 05/05/2017 [facility] CARDIAC ENZYMES CK MB Index null 0.0 - 2.5 05/05/2017 [facility] CHEM PANEL eGFR 39 mL/min/1.73m2 05/05/2017 Result Comment: The eGFR is calculated using the [...] from the National Kidney Disease Education Program (NKDEP) which additionally recommends that when the eGFR is used in patients with extremes of body mass index for purposes of drug dosing, the eGFR should be multiplied by the estimated BMI. [facility] CHEM PANEL AGAP 12.0 meq/L 10.0 - 20.0 05/05/2017 [facility] CHEM PANEL Calcium Lvl 9.5 mg/dL 8.5 - 10.5 05/05/2017 [facility] CHEM PANEL Sodium Lvl 139 meq/L 135 - 145 05/05/2017 [facility] CHEM PANEL Creatinine Lvl 1.30 mg/dL 0.50 - 1.40 05/05/2017 [facility] CHEM PANEL Glucose Lvl 109 mg/dL 70 - 99 05/05/2017 [facility] CHEM PANEL BUN 22 mg/dL 7 - 22 05/05/2017 [facility] CHEM PANEL Chloride Lvl 104 meq/L 95 - 109 05/05/2017 [facility] CHEM PANEL Potassium Lvl 4.0 meq/L 3.5 - 5.1 05/05/2017 [facility] CHEM PANEL CO2 27 meq/L 24 - 32 05/05/2017 [facility] HEMATOLOGY INR 0.97 0.85 - 1.17 05/05/2017 [facility] HEMATOLOGY PT 13.1 s 12.0 - 14.7 05/05/[address] [facility] Hgb 12.0 g/dL 12.0 - 16.0 05/05/[address] [facility] Platelet 179 K/CMM 133 - 450 05/05/[address] [facility] MPV 7.6 fL 7.4 - 10.4 05/05/[address] [facility] MCHC 33.9 g/dL 32.0 - 36.0 05/05/[address] [facility] RDW 14.7 % 11.5 - 14.5 05/05/[address] [facility] MCH 29.4 pg 27.0 - 31.0 05/05/[address] [facility] MCV 86.9 fL 80.0 - 98.0 05/05/[address] [facility] Hct 35.4 % 36.0 - 48.0 05/05/[address] [facility] RBC 4.08 M/CMM 4.20 - 5.40 05/05/2017 [facility] HEMATOLOGY WBC 8.7 K/CMM 3.7 - 10.4 05/05/2017 [facility] HEMATOLOGY PTT 28.6 s 22.9 - 35.8 05/05/2017 [facility] HEMATOLOGY Basophils # 0.1 K/CMM 0.0 - 0.2 05/05/2017 [facility] HEMATOLOGY Monocytes # 0.7 K/CMM 0.0 - 0.8 05/05/2017 [facility] HEMATOLOGY Eosinophils # 0.3 K/CMM 0.0 - 0.5 05/05/2017 [facility] HEMATOLOGY Lymphocytes # 2.3 K/CMM 1.0 - 5.5 05/05/2017 [facility] HEMATOLOGY Basophils 1.2 % 0.0 - 1.0 05/05/2017 [facility] HEMATOLOGY Eosinophils 3.6 % 0.0 - 4.0 05/05/2017 [facility] HEMATOLOGY Segs-Bands # 5.3 K/CMM 1.5 - 8.1 05/05/2017 [facility] HEMATOLOGY Monocytes 7.8 % 2.0 - 12.0 05/05/2017 [facility] HEMATOLOGY Lymphocytes 26.2 % 20.0 - 40.0 05/05/2017 [facility] HEMATOLOGY Segs 61.2 % 45.0 - 75.0 05/05/2017 [facility] HEMATOLOGY Monocytes # 0.7 K/CMM 0.0 - 0.8 03/26/2017 [facility] HEMATOLOGY Segs-Bands # 9.4 K/CMM 1.5 - 8.1 03/26/2017 [facility] HEMATOLOGY Monocytes 5.0 % 2.0 - 12.0 03/26/2017 [facility] HEMATOLOGY Eosinophils 2.0 % 0.0 - 4.0 03/26/2017 [facility] HEMATOLOGY Bands 0.0 % 0.0 - 11.0 03/26/2017 [facility] HEMATOLOGY Lymphocytes 21.0 % 20.0 - 40.0 03/26/2017 [facility] HEMATOLOGY Atypical Lymphs 0.0 % <=0.0 % 03/26/2017 [facility] HEMATOLOGY Lymphocytes # 2.8 K/CMM 1.0 - 5.5 03/26/2017 [facility] HEMATOLOGY Eosinophils # 0.3 K/CMM 0.0 - 0.5 03/26/2017 [facility] HEMATOLOGY Segs 72.0 % 45.0 - 75.0 03/26/2017 [facility] HEMATOLOGY RBC Morph Normal (03/26/17 3:55 PM) 03/26/[address] [facility] Plt Morph Normal (03/26/17 3:55 PM) 03/26/[address] [facility] Retic Auto 1.5 % 0.5 - 1.5 03/26/[address] [facility] Hgb 13.6 g/dL 12.0 - 16.0 03/26/[address] [facility] RDW 14.8 % 11.5 - 14.5 03/26/[address] [facility] MCHC 32.8 g/dL 32.0 - 36.0 03/26/[address] [facility] MCH 29.3 pg 27.0 - 31.0 03/26/[address] [facility] MPV 8.2 fL 7.4 - 10.4 03/26/[address] [facility] Platelet 196 K/CMM 133 - 450 03/26/[address] [facility] WBC 13.1 K/CMM 3.7 - 10.4 03/26/[address] [facility] Hct 41.3 % 36.0 - 48.0 03/26/[address] [facility] MCV 89.3 fL 80.0 - 98.0 03/26/[address] [facility] RBC 4.63 M/CMM 4.20 - 5.40 03/26/2017 [facility] Bone Marrow Biopsy or Trocar (VR) Bone Marrow Biopsy or Trocar (VR) Patient Name: JHOAN DE LA GARZA : 1935; Age: 82 years y/o Female MR: [id number] Study: Bone Marrow Biopsy or Trocar (VR) 03/26/2017 2:06 PM CDT Ordering Physician: Tanner Coleman MD Clinical Indication: Possible multiple myeloma; Comparison: Abdominal CT 03/23/2017, CT abdomen and pelvis 09/12/2016 PROCEDURE: Informed consent was obtained from the patient, after which the patient was brought into the examination suite and placed in a prone position on the fluoroscopy table. The left posterior iliac bone was identified, the biopsy trajectory was chosen, and the overlying skin was marked and prepped and draped utilizing all elements of maximal sterile barrier technique. Lidocaine was injected into a focus skin, soft tissues and periosteum. The 11- gauge Oncontrol biopsy needle advanced under fluoroscopic guidance through the anesthetized tract and down to the periosteal lining. The power drill was activated and the biopsy needle was advanced into the bone. 3 cc of bone marrow was aspirated and analyzed by a two way radio technician to confirm appropriate access followed by 10 mL of bone marrow aspirate. The biopsy needle was further advanced 3-4 cm, and a core biopsy was obtained and sent for laboratory analysis. A portion of the iliac bone was chosen where the expected trajectory of the needle would traverse the osseous lucencies seen on the recent CT scans. The patient tolerated procedure well was taken back to IR recovery in stable fashion. COMPLICATIONS: None PAIN CONTROL: Lidocaine solution was administered locally, as described; Moderate conscious sedation was initiated and maintained with intravenous 2 mg Versed and 100 mcg fentanyl. The patient's vital signs were monitored throughout the procedure by a dedicated nurse. Total sedation time was 13 min. Fluoroscopy time: 0.2 mins Dose: 10 mGy-cm IMPRESSION: Successful fluoroscopically guided bone marrow and bone biopsies. SL: [id number] 03/26/2017 - - Read by: Ramon Fernandez MD Dictated Date/time: 03/26/17 15:32 Electronically Signed by: Ramon Fernandez MD 03/26/17 15:37 FINAL REPORT [facility] 24Hr UPE Int Urine protein consists primarily of albumin. No monoclonal bands are identified.Interpretation performed at [facility]. 03/25/2017 [facility] 24 UPE Tot Prot 32 mg/dL 03/25/2017 [facility] 24Hr UPE 304 mg/24hrs 03/25/2017 [facility] 24 UPE Tot Vol 950 mL 03/25/2017 [facility] CHEM PANEL BUN 31 mg/dL 7 - 22 03/25/2017 [facility] CHEM PANEL Sodium Lvl 140 meq/L 135 - 145 03/25/2017 [facility] CHEM PANEL Glucose Lvl 93 mg/dL 70 - 99 03/25/2017 [facility] CHEM PANEL Creatinine Lvl 1.10 mg/dL 0.50 - 1.40 03/25/2017 [facility] CHEM PANEL AGAP 13.1 meq/L 10.0 - 20.0 03/25/2017 [facility] CHEM PANEL CO2 26 meq/L 24 - 32 03/25/2017 [facility] CHEM PANEL Chloride Lvl 105 meq/L 95 - 109 03/25/2017 [facility] CHEM PANEL Potassium Lvl 4.1 meq/L 3.5 - 5.1 03/25/2017 [facility] CHEM PANEL Calcium Lvl 9.6 mg/dL 8.5 - 10.5 03/25/2017 [facility] CHEM PANEL eGFR 48 mL/min/1.73m2 03/25/2017 Result Comment: The eGFR is calculated using the [...] from the National Kidney Disease Education Program (NKDEP) which additionally recommends that when the eGFR is used in patients with extremes of body mass index for purposes of drug dosing, the eGFR should be multiplied by the estimated BMI. [facility] CHEM PANEL Magnesium Lvl 2.1 mg/dL 1.8 - 2.4 03/24/2017 [facility] CHEM PANEL eGFR 30 mL/min/1.73m2 03/24/2017 Result Comment: The eGFR is calculated using the [...] from the National Kidney Disease Education Program (NKDEP) which additionally recommends that when the eGFR is used in patients with extremes of body mass index for purposes of drug dosing, the eGFR should be multiplied by the estimated BMI. [facility] CHEM PANEL Calcium Lvl 9.8 mg/dL 8.5 - 10.5 03/24/2017 [facility] CHEM PANEL CO2 27 meq/L 24 - 32 03/24/2017 [facility] CHEM PANEL Potassium Lvl 4.2 meq/L 3.5 - 5.1 03/24/2017 [facility] CHEM PANEL BUN 37 mg/dL 7 - 22 03/24/2017 [facility] CHEM PANEL Chloride Lvl 106 meq/L 95 - 109 03/24/2017 [facility] CHEM PANEL Creatinine Lvl 1.60 mg/dL 0.50 - 1.40 03/24/2017 [facility] CHEM PANEL Sodium Lvl 141 meq/L 135 - 145 03/24/2017 [facility] CHEM PANEL Glucose Lvl 111 mg/dL 70 - 99 03/24/2017 [facility] CHEM PANEL AGAP 12.2 meq/L 10.0 - 20.0 03/24/2017 [facility] HEMATOLOGY MPV 8.9 fL 7.4 - 10.4 03/24/2017 [facility] HEMATOLOGY WBC 13.4 K/CMM 3.7 - 10.4 03/24/[address] [facility] MCH 29.4 pg 27.0 - 31.0 03/24/2017 [facility] HEMATOLOGY MCV 88.3 fL 80.0 - 98.0 03/24/2017 [facility] HEMATOLOGY RDW 14.9 % 11.5 - 14.5 03/24/[address] [facility] MCHC 33.3 g/dL 32.0 - 36.0 03/24/[address] [facility] Platelet 183 K/CMM 133 - 450 03/24/[address] [facility] RBC 4.26 M/CMM 4.20 - 5.40 03/24/[address] [facility] Hct 37.6 % 36.0 - 48.0 03/24/[address] [facility] Hgb 12.5 g/dL 12.0 - 16.0 03/24/2017 [facility] HEMATOLOGY Monocytes # 1.5 K/CMM 0.0 - 0.8 03/24/[address] [facility] Lymphocytes # 1.4 K/CMM 1.0 - 5.5 03/24/2017 [facility] HEMATOLOGY Segs-Bands # 10.4 K/CMM 1.5 - 8.1 03/24/[address] [facility] Basophils # 0.1 K/CMM 0.0 - 0.2 03/24/2017 [facility] HEMATOLOGY Basophils 0.5 % 0.0 - 1.0 03/24/2017 [facility] HEMATOLOGY Eosinophils 0.1 % 0.0 - 4.0 03/24/2017 [facility] HEMATOLOGY Monocytes 10.9 % 2.0 - 12.0 03/24/2017 [facility] HEMATOLOGY Lymphocytes 10.6 % 20.0 - 40.0 03/24/2017 [facility] HEMATOLOGY Segs 77.9 % 45.0 - 75.0 03/24/2017 [facility] IMMUNOLOGY [place]/Lambda Free Light Chains Ratio 1.49 Ratio 0.26 - 1.65 03/24/2017 [facility] Lambda Free Light Chains 20.33 mg/L 5.70 - 26.30 03/24/[address] [facility] [place] Free Light Chains 30.21 mg/L 3.30 - 19.40 03/24/2017 [facility] HEMATOLOGY Sed Rate 16 mm/h 0 - 20 03/23/2017 [facility] Albumin (SPE) 3.91 g/dL 3.57 - 5.55 03/23/2017 [facility] Alpha 1 Glob 0.37 g/dL 0.18 - 0.41 03/23/2017 [facility] Alpha 2 Glob 0.67 g/dL 0.45 - 1.00 03/23/2017 [facility] Beta Glob 0.80 g/dL 0.50 - 1.15 03/23/2017 [facility] Gamma Glob 1.25 g/dL 0.71 - 1.57 03/23/2017 [facility] Tot Prot (SPE) 7.0 g/dL 6.4 - 8.4 03/23/2017 [facility] SPE Interp Total protein and serum albumin levels are within reference ranges. All globulin fractions are present in a normal distribution. No monoclonal proteins are identified. Serum capillary electrophoresis is without significant abnormalities.Interpretation performed at [facility]. 03/23/2017 [facility] IMMUNOLOGY Beta % 11.4 REL % 7.8 - 13.7 03/23/2017 [facility] Gamma % 17.8 REL % 11.1 - 18.7 03/23/2017 [facility] Alpha 1 % 5.3 REL % 2.8 - 4.9 03/23/2017 [facility] Alpha 2 % 9.6 REL % 7.0 - 11.9 03/23/2017 [facility] Albumin % 55.9 REL % 55.8 - 66.1 03/23/2017 [facility] Abdomen CTA Abdomen CTA Patient Name: JHOAN DE LA GARZA : 1935; Age: 82 years y/o Female MR: [id number] Study: Abdomen CTA 03/22/2017 4:45 PM CDT Ordering Physician: Clinical Indication: CT DLP - 696 mGycm; 75 cc visi \\T\\ 75 cc saline IV - SEVERE HTN,ASSES KIDNEY, ADRENAL GLANDS AND RENAL ARTERIES; Comparison: CTA abdomen TECHNIQUE: Sequential trans-axial images were obtained with a multi-detector helical CT after administration of iodinated contrast for CT angiography. Coronal and sagittal reconstructions and were obtained, along with 3D post- processing imaging for exam interpretation. 75 cc of [<Visipaque] contrast material was used for the exam. CT Radiation Dose DLP 696 mGy-cm FINDINGS: ARTERIAL EVALUATION: Diffuse atherosclerotic plaque throughout the abdominal aorta without aneurysm or aortic stenosis. The celiac artery, superior mesenteric artery and inferior mesenteric arteries demonstrate mild proximal atherosclerotic plaque, however without significant stenosis. Both renal arteries demonstrate mild eccentric osteophyte, without stenosis. LIMITED VENOUS EVALUATION: The mesenteric veins and portal vein are patent. The inferior vena cava and renal veins are unremarkable. ABDOMINAL SOLID ORGANS: The arterial phase contrast-enhanced images of the liver, gallbladder, spleen, pancreas, adrenals are otherwise unremarkable. Previous cholecystectomy. 5 mm nonobstructive right renal calyceal calculus. 2.4 cm left renal cyst. 13 mm cortical lesion right renal midpole which is slightly hyperdense. In retrospect this was present on 12/15/2012 and is unchanged, compatible with a benign lesion. PERITONEUM AND RETROPERITONEUM: There is no retroperitoneal or abdominal lymphadenopathy. There is no abdominal ascites. STOMACH AND BOWEL: The noncontrast opacified stomach and loops of bowel in the abdomen are unremarkable. Extensive diffuse colonic diverticulosis, without evidence for diverticulitis or colitis. VISUALIZED LUNG BASES: Fibrotic changes. No acute finding. No pleural effusion. Cardiomegaly. Coronary calcifications. No pericardial effusion. BONES: Diffuse osteopenia. Diffuse small lytic changes throughout the visualized skeleton. Consider underlying myeloma or metastatic disease. IMPRESSION: 1. No CT or CTA evidence for renal artery stenosis. No significant visceral artery stenosis. No suspicious renal lesions. No adrenal mass. 5 mm nonobstructive right renal lower pole calculus. No other acute renal or upper abdominal CT findings. Diffuse small lytic changes throughout the skeleton. Correlate clinically for myeloma or metastatic disease. SL: [id number] 03/23/2017 - - Read by: Zak Law MD Dictated Date/time: 03/23/17 14:01 Electronically Signed by: Zak Law MD 03/23/17 14:15 FINAL REPORT [facility] Cardiac SPECT multi studies PA Cardiac SPECT multi studies PA Nuclear gated myocardial perfusion scan performed as per protocol at the nuclear medicine lab at [facility] Lexiscan injected 0.4 mg intravenously stress agent. Cardiolite injected 29 mCi for resting protocol and 10.1 mCi for stress protocol. Impression: mild apical ischemia noted. No evidence of for left ventricular wall motion abnormality noted. Left ventricular ejection fraction 60%. . 03/23/2017 - - Read by: Natalie Garcia MD Dictated Date/time: 04/15/17 13:34 Electronically Signed by: Natalie Garcia MD 04/15/17 13:36 FINAL REPORT [facility] CARDIAC ENZYMES CK MB Index 1.5 0.0 - 2.5 03/22/2017 [facility] CARDIAC ENZYMES Troponin-I 0.04 ng/mL 0.00 - 0.40 03/22/2017 [facility] CARDIAC ENZYMES CK MB 1.3 ng/mL 0.5 - 3.6 03/22/2017 [facility] CARDIAC ENZYMES Total CK 85 unit/L 12 - 191 03/22/2017 [facility] CHEM PANEL Albumin Lvl 3.5 g/dL 3.5 - 5.0 03/22/2017 [facility] CHEM PANEL CO2 29 meq/L 24 - 32 03/22/2017 [facility] CHEM PANEL Calcium Lvl 9.3 mg/dL 8.5 - 10.5 03/22/2017 [facility] CHEM PANEL Total Protein 7.0 g/dL 6.4 - 8.4 03/22/2017 [facility] CHEM PANEL ALT 18 unit/L 0 - 65 03/22/2017 [facility] CHEM PANEL B/C Ratio 21 6 - 25 03/22/2017 [facility] CHEM PANEL Alk Phos 54 unit/L 39 - 136 03/22/2017 [facility] CHEM PANEL Bili Total 0.8 mg/dL 0.2 - 1.3 03/22/2017 [facility] CHEM PANEL AST 13 unit/L 0 - 37 03/22/2017 [facility] CHEM PANEL AGAP 6.7 meq/L 10.0 - 20.0 03/22/2017 [facility] CHEM PANEL eGFR 55 mL/min/1.73m2 03/22/2017 Result Comment: The eGFR is calculated using the [...] from the National Kidney Disease Education Program (NKDEP) which additionally recommends that when the eGFR is used in patients with extremes of body mass index for purposes of drug dosing, the eGFR should be multiplied by the estimated BMI. [facility] CHEM PANEL A/G Ratio 1.0 0.7 - 1.6 03/22/2017 [facility] CHEM PANEL Globulin 3.5 g/dL 2.7 - 4.2 03/22/2017 [facility] CHEM PANEL Creatinine Lvl 0.98 mg/dL 0.50 - 1.40 03/22/2017 [facility] CHEM PANEL Glucose Lvl 91 mg/dL 70 - 99 03/22/2017 [facility] CHEM PANEL BUN 21 mg/dL 7 - 22 03/22/2017 [facility] CHEM PANEL Sodium Lvl 139 meq/L 135 - 145 03/22/2017 [facility] CHEM PANEL Chloride Lvl 107 meq/L 95 - 109 03/22/2017 [facility] CHEM PANEL Potassium Lvl 3.7 meq/L 3.5 - 5.1 03/22/2017 [facility] HEMATOLOGY Lymphocytes # 2.4 K/CMM 1.0 - 5.5 03/22/2017 [facility] HEMATOLOGY Monocytes # 0.6 K/CMM 0.0 - 0.8 03/22/2017 [facility] HEMATOLOGY Eosinophils # 0.3 K/CMM 0.0 - 0.5 03/22/2017 [facility] HEMATOLOGY Basophils # 0.1 K/CMM 0.0 - 0.2 03/22/2017 [facility] HEMATOLOGY Segs 62.9 % 45.0 - 75.0 03/22/2017 [facility] HEMATOLOGY Lymphocytes 26.3 % 20.0 - 40.0 03/22/2017 [facility] HEMATOLOGY Monocytes 6.7 % 2.0 - 12.0 03/22/2017 [facility] HEMATOLOGY Basophils 0.6 % 0.0 - 1.0 03/22/2017 [facility] HEMATOLOGY Eosinophils 3.5 % 0.0 - 4.0 03/22/[address] [facility] Segs-Bands # 5.7 K/CMM 1.5 - 8.1 03/22/[address] [facility] PTT 32.0 s 22.9 - 35.8 03/22/[address] [facility] MCHC 33.5 g/dL 32.0 - 36.0 03/22/[address] [facility] Platelet 158 K/CMM 133 - 450 03/22/[address] [facility] RDW 14.4 % 11.5 - 14.5 03/22/[address] [facility] MPV 8.5 fL 7.4 - 10.4 03/22/[address] [facility] MCV 87.5 fL 80.0 - 98.0 03/22/[address] [facility] MCH 29.3 pg 27.0 - 31.0 03/22/[address] [facility] WBC 9.0 K/CMM 3.7 - 10.4 03/22/[address] [facility] RBC 4.14 M/CMM 4.20 - 5.40 03/22/[address] [facility] Hgb 12.1 g/dL 12.0 - 16.0 03/22/[address] [facility] Hct 36.2 % 36.0 - 48.0 03/22/[address] [facility] PT 13.3 s 12.0 - 14.7 03/22/[address] [facility] INR 0.99 0.85 - 1.17 03/22/2017 [facility] Retroperitoneal complete w Doppler US Retroperitoneal complete w Doppler US Patient Name: JHOAN DE LA GARZA : 1935; Age: 82 years y/o Female MR: [id number] Study: Retroperitoneal complete w Doppler US 03/22/2017 2:13 PM CDT Ordering Physician: Clinical Indication: - malignant hypertension. Rule out renal artery stenosis.; Comparison: CT abdomen pelvis 09/12/2016 Renal ultrasound, renal vascular Doppler. Right kidney 8.9 x 4.5 x 5.2 cm. Left kidney 10.8 x 5.2 x 4.2 cm. Increased renal cortical echogenicity diffusely suggesting a component of chronic medical renal disease. No hydronephrosis. No solid lesion seen. 2.4 cm left renal cyst. Renal vascular study as follows: Right renal artery peak systolic velocity 253 cm/s. Left renal artery peak systolic velocity 96 cm/s. Renal artery waveforms are normal bilaterally without evidence for parvus tardus configuration or delayed acceleration. Aortic systolic velocity is 170 cm/s. Resistive indices within the lobar arteries of both kidneys are normal up to 0.72 on the right and 0.75 on the left. Normal lobar artery waveforms are seen bilaterally. Bilateral renal vein patency is demonstrated. IMPRESSION: Mildly echogenic kidneys suggesting a component of chronic medical renal disease. Right kidney is slightly small measuring less than 9 cm. Elevated systolic velocity in the right renal artery up to 253 cm/s. Despite the absence of delayed acceleration or parvus tardus waveform, should consider the possibility of a hemodynamically significant stenosis of the right renal artery. If clinically feasible, CTA or MRA could be more specific. SL: [id number] 03/22/2017 - - Read by: Zak Law MD Dictated Date/time: 03/22/17 16:52 Electronically Signed by: Zak Law MD 03/22/17 17:00 FINAL REPORT [facility] Brain wo contrast CT Brain wo contrast CT Patient Name: JHOAN DE LA GARZA : 1935; Age: 82 years Female MR: [id number] Study: Brain wo contrast CT 03/22/2017 11:52 AM CDT Clinical Indication: dlp: 981.77; SM - headache, dizziness; Pt c/o hypertension, nuasea, intermittent dizziness, and STILES onset x2 days ago, denies STILES in triage; hx of htn. COMPARISON: August 15, 2010. TECHNIQUE: CT images were obtained from the foramen magnum to the vertex without the use of intravenous contrast on a multidetector CT. Coronal and sagittal reconstructions were obtained. FINDINGS: BRAIN PARENCHYMA: There is generalized brain parenchymal atrophy related to the patient's age. Nonspecific periventricular white matter disease changes are noted. Atherosclerotic calcifications are present within the carotid siphons and distal vertebral arteries. There are no focal mass lesions on this noncontrast head CT. There is no mass effect, midline shift or edema. There are no intra-axial or extra-axial fluid collections. There is no intraventricular or intraparenchymal hemorrhage. There is no noncontrast CT evidence of a subacute stroke. The pineal, sellar, brainstem, cerebellum and skull base regions appear normal. VENTRICLES: The lateral ventricles, third and fourth ventricles appear normal. The basilar cisterns are normal. ORBITS, MASTOIDS AND PARANASAL SINUSES: The visualized orbits are normal. The visualized paranasal sinuses are normal. The mastoid air cells are clear. SKULL: There are no calvarial abnormalities seen. If there is further concern for intracranial pathology or acute stroke, MRI of the brain may be performed for complete assessment. IMPRESSION: Chronic age-related and small vessel ischemic changes without mass, hemorrhage or subacute stroke. SL: [id number] 03/22/2017 - - Read by: Eugene Carlson MD Dictated Date/time: 03/22/17 13:43 Electronically Signed by: Eugene Carlson MD 03/22/17 13:45 FINAL REPORT [facility] Chest 1view DX Chest 1view DX Patient Name: JHOAN DE LA GARZA : 1935; Age: 82 years Female MR: [id number] Study: Chest 1view DX Order Time: 03/22/2017 11:52 AM CDT Clinical Indication: - dizziness. Dizziness, nausea, hypertension. COMPARISON: September 2014. March 2013. January 2013. January 15, 2013. FINDINGS: Views: 1 LUNGS: There is normal lung volume. There are no suspicious interstitial/airspace opacities. There are no pleural effusions. There is no pneumothorax. The pulmonary vasculature is normal. MEDIASTINUM: The cardiac silhouette is enlarged. The trachea is midline. BONES: Mild bilateral glenohumeral joint osseous change. Mild thoracic spondylosis. IMPRESSION: No radiographic evidence of acute pulmonary disease. SL: [id number] 03/22/2017 - - Read by: Eugene Carlson MD Dictated Date/time: 03/22/17 12:05 Electronically Signed by: Eugene Carlson MD 03/22/17 12:07 FINAL REPORT [facility] Thyroid US Thyroid US Clinical Indication: nontoxic single thyroid nodule - nontoxic single thyroid nodule; Comparison: Thyroid ultrasound 12/14/2015 TECHNIQUE: Sonographic evaluation of the thyroid gland is performed FINDINGS: The right thyroid gland measures 5.9 x 2.4 x 1.9 cm. The left thyroid gland measures 4.6 x 1.5 x 1.9 cm. The thyroid isthmus is unremarkable The thyroid is heterogeneous. The right lobe is enlarged. A 4.1 cm nodule in the right lower/mid thyroid. This nodule is solid and cystic with multiple calcifications. A 1.2 cm nodule in the left upper pole. This nodule is primarily solid A 1.2 cm nodule in the left midpole., Isoechoic calcifications. This nodule is solid and cystic, primarily cystic. A coarse calcification in the left lower pole which measures 5 mm. There is no adjacent jugular chain lymphadenopathy. IMPRESSION: 1. Grossly unchanged multinodular thyroid. SL: [id number] 01/15/2017 - - Read by: Ramon Fernandez MD Dictated Date/time: 01/15/17 14:13 Electronically Signed by: Ramon Fernandez MD 01/15/17 14:17 FINAL REPORT [facility] CHEM PANEL POC Creatinine 0.7 mg/dL 0.5 - 1.4 09/12/2016 [facility] CHEM PANEL eGFR 83 mL/min/1.73m2 09/12/2016 Result Comment: The eGFR is calculated using the [...] from the National Kidney Disease Education Program (NKDEP) which additionally recommends that when the eGFR is used in patients with extremes of body mass index for purposes of drug dosing, the eGFR should be multiplied by the estimated BMI. [facility] Abdomen/Pelvis w IV contrast CT Abdomen/Pelvis w IV contrast CT Study: CT ABDOMEN AND PELVIS WITH CONTRAST Clinical Indication: Constipation, generalized abdominal pain; Comparison: CT abdomen pelvis 10/04/2014 Technique: Axial images with sagittal and coronal reconstructions were obtained following oral and nonionic intravenous contrast, Visipaque [address] Radiation Dose: UQX=331 mGy-cm. FINDINGS: The lung bases are clear. There is mild cardiomegaly and extensive coronary artery calcifications. There is fatty infiltration of the liver. Cholecystectomy has been performed. Common duct size is within normal limits. The spleen appears normal. There are renal cortical cysts. The adrenals and pancreas are normal. Moderate diverticular changes involve the distal colon. There is a large amount of fecal material within the colon. No definite intestinal lesion is identified. The uterus is absent. Urinary bladder is not remarkable. No adnexal mass, adenopathy or ascites is seen. There is extensive atherosclerosis and severe spondylosis. Lower lumbar laminectomy has been performed. IMPRESSION: 1. Diverticulosis and moderate constipation. 2. Fatty liver. 3. Moderate atherosclerosis with severe coronary artery calcifications. 4. Hysterectomy. 5. Severe spondylosis. SL: [id number] 09/12/2016 - - Read by: Santo Sloan MD Dictated Date/time: 09/12/16 14:52 Electronically Signed by: Santo Sloan MD 09/12/16 14:59 FINAL REPORT [facility] Digital Mammo Screening Kalpesh MA Digital Mammo Screening Kalpesh MA - DIGITAL MAMMO SCREENING KALPESH MA BILATERAL DIGITAL SCREENING MAMMOGRAM WITH CAD: 08/07/2016 CLINICAL: Routine. Current study was evaluated with a Computer Aided Detection (CAD) system. Comparison is made to exams dated: 07/31/2015 mammogram, 07/31/2014 mammogram, 07/28/2013 mammogram, 08/10/2012 mammogram, 07/27/2012 mammogram and 07/21/2011 mammogram - [facility]. There are scattered fibroglandular densities in both breasts. Technologist indicates the exam is limited as the patient had difficulty standing and holding still during the exam. Best images obtained were submitted for review. There are benign vascular calcifications and calcifications in both breasts. No significant masses, calcifications, or other findings are seen in either breast. There has been no significant interval change. IMPRESSION: BENIGN There is no mammographic evidence of malignancy. A 1 year screening mammogram is recommended. Catalina chong/penrad:08/07/2016 14:10:25 Operations Administrative Assistant: Sparkle Philip, [facility] This exam was dictated and interpreted by [id number] for [facility]. letter sent: Normal exam Mammogram BI-RADS: 2 Benign 08/07/2016 - - Read by: Catalina Dorado MD Dictated Date/time: 08/07/16 14:10 Electronically Signed by: Catalina Dorado MD 08/07/16 14:10 FINAL REPORT [facility] Thyroid US Thyroid US Thyroid US CLINICAL HISTORY: E04.2 Nontoxic multinodular goiter. COMPARISON: 11/14/2014, 11/22/2013 TECHNIQUE: Grayscale and color images of both lobes of thyroid gland were performed with a linear high-frequency transducer. Static images are submitted for review. FINDINGS: There is mild heterogeneity in the echotexture of both lobes of thyroid gland. Large heterogeneous mass occupying majority of the right lobe measures approximately 8.8 x 2.3 x 3.7 cm and demonstrates no significant change in its overall size and appearance from previous ultrasounds. Multiple nodules in the left lobe of thyroid gland measuring of 21.4 cm in size do not demonstrate any significant change in overall size and appearance from previous 2 studies. The right lobe measures 5.9 x 2.9 x 2.2 cm and the left lobe measures 4.9 x 1.9 x 1.9 cm. ISTHMUS: Region of the isthmus is unremarkable. LYMPH NODES: No enlarged lymph nodes are evident adjacent to either lobe of thyroid gland. IMPRESSION: Stable multinodular thyroid gland. SL: [id number] 12/14/2015 - - Read by: Adalberto Cunningham MD Dictated Date/time: 12/16/15 07:37 Electronically Signed by: Adalberto Cunningham MD 12/16/15 07:41 FINAL REPORT [facility] Digital Mammo Screening Kalpesh MA Digital Mammo Screening Kalpesh MA - DIGITAL MAMMO SCREENING KALPESH MA BILATERAL DIGITAL SCREENING MAMMOGRAM WITH CAD: 07/31/2015 CLINICAL: Routine. Current study was evaluated with a Computer Aided Detection (CAD) system. Comparison is made to exams dated: 07/31/2014 mammogram, 07/28/2013 mammogram, 08/10/2012 mammogram, 07/27/2012 mammogram, 07/21/2011 mammogram and 07/17/2010 mammogram - [facility]. There are scattered fibroglandular densities in both breasts. There are benign vascular calcifications and calcifications in both breasts. No significant masses, calcifications, or other findings are seen in either breast. There has been no significant interval change. IMPRESSION: BENIGN There is no mammographic evidence of malignancy. A 1 year screening mammogram is recommended. Catalina chong/penrad:07/31/2015 13:16:23 Operations Administrative Assistant: Paige Pollack, [facility] This exam was dictated and interpreted by [id number] for [facility]. letter sent: Normal exam Mammogram BI-RADS: 2 Benign 07/31/2015 - - Read by: Catalina Dorado MD Dictated Date/time: 07/31/15 13:16 Electronically Signed by: Catalina Dorado MD 07/31/15 13:16 FINAL REPORT [facility] Thyroid US Thyroid US THYROID ULTRASOUND: COMPARISON: 11/18/2012, 11/22/2013 CLINICAL HX: Thyroid nodules TECHNIQUE: Multiple static transcervical images of thyroid gland are submitted for review. FINDINGS: The thyroid gland demonstrates normal echogenicity and is symmetric in size. The right lobe measures 5.1 x 2.4 x 2.2 cm and the left lobe measures 5.2 x 1.8 x 1.9 cm in size. Large heterogeneous mass in the mid to lower portion of right lobe of thyroid gland measures approximately 3.9 x 2.3 x 3.6 cm in size essentially unchanged from the previous 2 scans. 13 mm x 9 mm x 12 mm heterogeneous solid lesion in the upper pole of left lobe of thyroid gland and the 13 mm x 10 mm x 12 mm cystic solid lesion in the midportion of left lobe of thyroid gland demonstrates no significant change in its overall size and appearance from previous 2 ultrasounds. Other subcentimeter lesions, the larger one calcified, in the lower pole of left lobe of thyroid gland are stable as well. IMPRESSION: Stable multinodular thyroid gland. SL:13 11/14/2014 - - Read by: Adalberto Cunningham MD Dictated Date/time: 11/14/14 15:16 Electronically Signed by: Adalberto Cunningham MD 11/14/14 15:26 FINAL REPORT [facility] CHEM [facility] Glucose Lvl 117 mg/dL 70 - 99 10/05/2014 5Interpretive Data: Adult reference range values reflect the clinical guidelines of the [place] [employer]. [facility] CHEM PANEL Creatinine Lvl 1.0 mg/dL 0.5 - 1.4 10/05/2014 [facility] CHEM PANEL CO2 29 meq/L 24 - 32 10/05/2014 [facility] CHEM PANEL Calcium Lvl 9.6 mg/dL 8.5 - 10.5 10/05/2014 [facility] CHEM PANEL BUN 11 mg/dL 7 - 22 10/05/2014 [facility] CHEM PANEL eGFR 63 mL/min/1.73m2 10/05/2014 1Result Comment: The eGFR is calculated using [...] from the National Kidney Disease Education Program (NKDEP) which additionally recommends that when the eGFR is used in patients with extremes of body mass index for purposes of drug dosing, the eGFR should be multiplied by the estimated BMI. [facility] CHEM PANEL Chloride Lvl 104 meq/L 95 - 109 10/05/2014 [facility] CHEM PANEL Potassium Lvl 3.5 meq/L 3.5 - 5.1 10/05/2014 [facility] CHEM PANEL Sodium Lvl 139 meq/L 135 - 145 10/05/2014 [facility] CHEM PANEL AGAP 9.5 meq/L 10.0 - 20.0 10/05/2014 [facility] HEMATOLOGY Hgb 12.7 g/dL 12.0 - 16.0 10/05/2014 [facility] CARDIAC ENZYMES CK MB Index 2.5 0.0 - 2.5 10/05/2014 [facility] CARDIAC ENZYMES Total CK 143 unit/L 12 - 191 10/05/2014 [facility] CARDIAC ENZYMES Troponin-I 0.17 ng/mL 0.00 - 0.40 10/05/2014 [facility] CARDIAC ENZYMES CK MB 3.6 ng/mL 0.5 - 3.6 10/05/2014 [facility] CHEM PANEL Glucose Lvl 101 mg/dL 70 - 99 10/05/2014 6Interpretive Data: Adult reference range values reflect the clinical guidelines of the [place] [employer]. [facility] CHEM PANEL BUN 11 mg/dL 7 - 22 10/05/2014 [facility] CHEM PANEL AGAP 9.4 meq/L 10.0 - 20.0 10/05/2014 [facility] CHEM PANEL CO2 31 meq/L 24 - 32 10/05/2014 [facility] CHEM PANEL eGFR 63 mL/min/1.73m2 10/05/2014 2Result Comment: The eGFR is calculated using the [...] from the National Kidney Disease Education Program (NKDEP) which additionally recommends that when the eGFR is used in patients with extremes of body mass index for purposes of drug dosing, the eGFR should be multiplied by the estimated BMI. [facility] CHEM PANEL Calcium Lvl 9.6 mg/dL 8.5 - 10.5 10/05/2014 [facility] CHEM PANEL Chloride Lvl 103 meq/L 95 - 109 10/05/2014 [facility] CHEM PANEL Potassium Lvl 3.4 meq/L 3.5 - 5.1 10/05/2014 [facility] CHEM PANEL Sodium Lvl 140 meq/L 135 - 145 10/05/2014 [facility] CHEM PANEL Creatinine Lvl 1.0 mg/dL 0.5 - 1.4 10/05/[address] [facility] PT 14.5 s 12.0 - 14.7 10/05/[address] [facility] INR 1.12 0.85 - 1.17 10/05/2014 9Interpretive Data: RECOMMENDED RANGES FOR PROTIME INR: 2.0-3.0 for most medical and surgical thromboembolic states. 2.5-3.5 for artificial heart valves and recurrent embolism. INR SHOULD BE USED ONLY FOR PATIENTS ON STABLE ANTICOAGULANT THERAPY. [facility] MPV 8.7 fL 7.4 - 10.4 10/05/[address] [facility] Platelet 157 K/CMM 133 - 450 10/05/[address] [facility] MCHC 33.7 g/dL 32.0 - 36.0 10/05/[address] [facility] RDW 13.7 % 11.5 - 14.5 10/05/[address] [facility] WBC 7.3 K/CMM 3.7 - 10.4 10/05/[address] [facility] RBC 4.24 M/CMM 4.20 - 5.40 10/05/[address] [facility] MCH 29.2 pg 27.0 - 31.0 10/05/[address] [facility] Hgb 12.4 g/dL 12.0 - 16.0 10/05/[address] [facility] Hct 36.7 % 36.0 - 48.0 10/05/[address] [facility] MCV 86.5 fL 80.0 - 98.0 10/05/[address] [facility] PTT 125.3 s 22.9 - 35.8 10/05/2014 13Interpretive Data: Heparin Therapeutic Range: 57 - 92 Seconds [facility] HEMATOLOGY Eosinophils # 0.2 K/CMM 0.0 - 0.5 10/05/2014 [facility] HEMATOLOGY Basophils 0.7 % 0.0 - 1.0 10/05/2014 [facility] HEMATOLOGY Segs-Bands # 3.8 K/CMM 1.5 - 8.1 10/05/2014 [facility] HEMATOLOGY Monocytes # 0.7 K/CMM 0.0 - 0.8 10/05/2014 [facility] HEMATOLOGY Lymphocytes # 2.6 K/CMM 1.0 - 5.5 10/05/2014 [facility] HEMATOLOGY Basophils # 0.1 K/CMM 0.0 - 0.2 10/05/2014 [facility] HEMATOLOGY Eosinophils 2.4 % 0.0 - 4.0 10/05/2014 [facility] HEMATOLOGY Segs 52.0 % 45.0 - 75.0 10/05/[address] [facility] Monocytes 9.8 % 2.0 - 12.0 10/05/[address] [facility] Lymphocytes 35.1 % 20.0 - 40.0 10/05/2014 [facility] CARDIAC ENZYMES Troponin-I 0.21 ng/mL 0.00 - 0.40 10/05/2014 [facility] ELECTROLYTES Sodium Lvl 139 meq/L 135 - 145 10/05/2014 [facility] ELECTROLYTES Chloride Lvl 101 meq/L 95 - 109 10/05/2014 [facility] ELECTROLYTES Creatinine Lvl 1.0 mg/dL 0.5 - 1.4 10/05/2014 [facility] ELECTROLYTES CO2 31 meq/L 24 - 32 10/05/2014 [facility] ELECTROLYTES Potassium Lvl 3.5 meq/L 3.5 - 5.1 10/05/2014 [facility] ELECTROLYTES AGAP 10.5 meq/L 10.0 - 20.0 10/05/2014 [facility] ELECTROLYTES Calcium Lvl 9.9 mg/dL 8.5 - 10.5 10/05/2014 [facility] ELECTROLYTES eGFR 63 mL/min/1.73m2 10/05/2014 3Result Comment: The eGFR is calculated using the [...] from the National Kidney Disease Education Program (NKDEP) which additionally recommends that when the eGFR is used in patients with extremes of body mass index for purposes of drug dosing, the eGFR should be multiplied by the estimated BMI. [facility] ELECTROLYTES BUN 11 mg/dL 7 - 22 10/05/2014 [facility] ELECTROLYTES Glucose Lvl 110 mg/dL 70 - 99 10/05/2014 7Interpretive Data: Adult reference range values reflect the clinical guidelines of the [place] [employer]. [facility] ELECTROLYTES AGAP 7.5 meq/L 10.0 - 20.0 10/05/2014 [facility] ELECTROLYTES CO2 32 meq/L 24 - 32 10/05/2014 [facility] ELECTROLYTES Glucose Lvl 108 mg/dL 70 - 99 10/05/2014 8Interpretive Data: Adult reference range values reflect the clinical guidelines of the [place] [employer]. [facility] ELECTROLYTES BUN 11 mg/dL 7 - 22 10/05/2014 [facility] ELECTROLYTES eGFR 63 mL/min/1.73m2 10/05/2014 4Result Comment: The eGFR is calculated using the [...] from the National Kid[employer] Disease Education Program (NKDEP) which additionally recommends that when the eGFR is used in patients with extremes of body mass index for purposes of drug dosing, the eGFR should be multiplied by the estimated BMI. [facility] ELECTROLYTES Sodium Lvl 139 meq/L 135 - 145 10/05/2014 [facility] ELECTROLYTES Creatinine Lvl 1.0 mg/dL 0.5 - 1.4 10/05/2014 [facility] ELECTROLYTES Chloride Lvl 103 meq/L 95 - 109 10/05/2014 [facility] ELECTROLYTES Potassium Lvl 3.5 meq/L 3.5 - 5.1 10/05/2014 [facility] ELECTROLYTES Calcium Lvl 9.8 mg/dL 8.5 - 10.5 10/05/2014 [facility] HEMATOLOGY PT 15.2 s 12.0 - 14.7 10/05/2014 [facility] HEMATOLOGY INR 1.19 0.85 - 1.17 10/05/2014 10Interpretive Data: RECOMMENDED RANGES FOR PROTIME INR: 2.0-3.0 for most medical and surgical thromboembolic states. 2.5-3.5 for artificial heart valves and recurrent embolism. INR SHOULD BE USED ONLY FOR PATIENTS ON STABLE ANTICOAGULANT THERAPY. [facility] HEMATOLOGY Hgb 14.4 g/dL 12.0 - 16.0 10/05/2014 [facility] URINE AND STOOL UA Urobilinogen <=1.0 mg/dL 0.1 - 1.0 10/05/2014 [facility] URINE AND STOOL UA Color Ltyellow 10/05/2014 [facility] URINE AND STOOL UA RBC 5 /HPF 0 - 2 10/05/2014 [facility] URINE AND STOOL UA Blood Negative (10/04/14 9:18 PM) Negative 10/05/2014 [facility] URINE AND STOOL UA Leuk Est Negative (10/04/14 9:18 PM) Negative 10/05/2014 [facility] URINE AND STOOL UA Nitrite Negative (10/04/14 9:18 PM) Negative 10/05/2014 [facility] URINE AND STOOL UA WBC 3 /HPF 0 - 5 10/05/2014 [facility] URINE AND STOOL UA Sq Epi Occasional /LPF Few /LPF 10/05/2014 [facility] URINE AND STOOL UA Turbidity Clear (10/04/14 9:18 PM) Clear 10/05/2014 [facility] URINE AND STOOL UA Spec Grav 1.043 <=1.030 10/05/2014 [facility] URINE AND STOOL UA Glucose Negative mg/dL Negative mg/dL 10/05/2014 [facility] URINE AND STOOL UA pH 7.0 5.0 - 8.0 10/05/2014 [facility] URINE AND STOOL UA Protein 100 mg/dL Negative mg/dL 10/05/2014 [facility] URINE AND STOOL UA Ketones Trace mg/dL Negative mg/dL 10/05/2014 [facility] URINE AND STOOL UA Bili Negative *NA* (10/04/14 9:18 PM) Negative 10/05/2014 [facility] CARDIAC ENZYMES CK MB Index 1.7 0.0 - 2.5 10/04/2014 [facility] CARDIAC ENZYMES CK MB 1.7 ng/mL 0.5 - 3.6 10/04/2014 [facility] CARDIAC ENZYMES Total CK 100 unit/L 12 - 191 10/04/2014 [facility] CARDIAC ENZYMES Troponin-I 0.06 ng/mL 0.00 - 0.40 10/04/2014 [facility] CHEM PANEL Magnesium Lvl 1.8 mg/dL 1.8 - 2.4 10/04/2014 [facility] CHEM PANEL Bili Total 0.9 mg/dL 0.2 - 1.3 10/04/2014 [facility] CHEM PANEL Alk Phos 176 unit/L 39 - 136 10/04/2014 [facility] CHEM PANEL AST 235 unit/L 0 - 37 10/04/2014 [facility] CHEM PANEL ALT 180 unit/L 0 - 65 10/04/2014 [facility] CHEM PANEL Total Protein 8.4 g/dL 6.4 - 8.4 10/04/2014 [facility] CHEM PANEL Albumin Lvl 4.2 g/dL 3.5 - 5.0 10/04/2014 [facility] CHEM PANEL A/G Ratio 1.0 0.7 - 1.6 10/04/2014 [facility] CHEM PANEL B/C Ratio 10 6 - 25 10/04/2014 [facility] CHEM PANEL Globulin 4.2 g/dL 2.0 - 4.0 10/04/2014 [facility] HEMATOLOGY Monocytes # 0.4 K/CMM 0.0 - 0.8 10/04/2014 [facility] HEMATOLOGY Segs-Bands # 5.9 K/CMM 1.5 - 8.1 10/04/2014 [facility] HEMATOLOGY Lymphocytes # 1.1 K/CMM 1.0 - 5.5 10/04/2014 [facility] HEMATOLOGY Eosinophils 0.2 % 0.0 - 4.0 10/04/2014 [facility] HEMATOLOGY Basophils 0.7 % 0.0 - 1.0 10/04/2014 [facility] HEMATOLOGY Lymphocytes 14.9 % 20.0 - 40.0 10/04/2014 [facility] HEMATOLOGY Monocytes 4.9 % 2.0 - 12.0 10/04/2014 [facility] HEMATOLOGY Segs 79.3 % 45.0 - 75.0 10/04/2014 [facility] HEMATOLOGY PTT 34.3 s 22.9 - 35.8 10/04/2014 14Interpretive Data: Heparin Therapeutic Range: 57 - 92 Seconds [facility] HEMATOLOGY PT 13.3 s 12.0 - 14.7 10/04/2014 [facility] HEMATOLOGY INR 1.01 0.85 - 1.17 10/04/2014 11Interpretive Data: RECOMMENDED RANGES FOR PROTIME INR: 2.0-3.0 for most medical and surgical thromboembolic states. 2.5-3.5 for artificial heart valves and recurrent embolism. INR SHOULD BE USED ONLY FOR PATIENTS ON STABLE ANTICOAGULANT THERAPY. [facility] HEMATOLOGY RDW 13.4 % 11.5 - 14.5 10/04/[address] [facility] MCHC 33.5 g/dL 32.0 - 36.0 10/04/[address] [facility] MCH 29.0 pg 27.0 - 31.0 10/04/[address] [facility] Platelet 172 K/CMM 133 - 450 10/04/[address] [facility] MPV 8.7 fL 7.4 - 10.4 10/04/[address] [facility] MCV 86.6 fL 80.0 - 98.0 10/04/[address] [facility] Hct 42.9 % 36.0 - 48.0 10/04/[address] [facility] RBC 4.95 M/CMM 4.20 - 5.40 10/04/[address] [facility] WBC 7.4 K/CMM 3.7 - 10.4 10/04/2014 [facility] CHEMISTRY AGAP 13.6 meq/L 10.0 - 20.0 12/11/2011 Normal [facility] CHEMISTRY Glucose Lvl 97 mg/dL 70 - 99 12/11/2011 Normal 1Interpretive Data: Adult reference range values reflect the clinical guidelinesof the [place] [employer]. [facility] CHEMISTRY BUN 16 mg/dL 7 - 22 12/11/2011 Normal [facility] CHEMISTRY Creatinine Lvl 1.0 mg/dL 0.5 - 1.4 12/11/2011 Normal [facility] CHEMISTRY CO2 23 meq/L 24 - 32 12/11/2011 LOW [facility] CHEMISTRY Calcium Lvl 9.2 mg/dL 8.5 - 10.5 12/11/2011 Normal [facility] CHEMISTRY Potassium Lvl 3.6 meq/L 3.5 - 5.1 12/11/2011 Normal [facility] CHEMISTRY Sodium Lvl 144 meq/L 135 - 145 12/11/2011 Normal [facility] CHEMISTRY Chloride Lvl 111 meq/L 95 - 109 12/11/2011 HI [facility] HEMATOLOGY Segs 63.2 % 45.0 - 75.0 12/11/2011 Normal [facility] HEMATOLOGY Lymphocytes # 2.0 K/CMM 1.0 - 5.5 12/11/2011 [facility] HEMATOLOGY Eosinophils # 0.2 K/CMM 0.0 - 0.5 12/11/2011 Normal [facility] HEMATOLOGY Monocytes # 0.6 K/CMM 0.0 - 0.8 12/11/2011 Normal [facility] HEMATOLOGY Basophils # 0.0 K/CMM 0.0 - 0.2 12/11/2011 Normal [facility] HEMATOLOGY Lymphocytes 26.3 % 20.0 - 40.0 12/11/2011 Normal [facility] HEMATOLOGY Eosinophils 2.5 % 0.0 - 4.0 12/11/2011 Normal [facility] HEMATOLOGY Monocytes 7.6 % 2.0 - 12.0 12/11/2011 Normal [facility] HEMATOLOGY Basophils 0.4 % 0.0 - 1.0 12/11/2011 Normal [facility] HEMATOLOGY Segs-Bands # 4.8 K/CMM 1.5 - 8.1 12/11/2011 Normal [facility] HEMATOLOGY Hgb 10.5 g/dL 12.0 - 16.0 12/11/2011 LOW [facility] HEMATOLOGY RBC 3.50 M/CMM 4.20 - 5.40 12/11/2011 LOW [facility] HEMATOLOGY MCV 87.6 fL 81.0 - 99.0 12/11/2011 Normal [facility] HEMATOLOGY Hct 30.7 % 36.0 - 48.0 12/11/2011 LOW [facility] HEMATOLOGY MCH 29.9 pg 27.0 - 31.0 12/11/2011 Normal [facility] HEMATOLOGY MCHC 34.1 g/dL 32.0 - 36.0 12/11/2011 Normal [facility] HEMATOLOGY RDW 13.9 % 11.5 - 14.5 12/11/2011 Normal [facility] HEMATOLOGY Platelet 152 K/CMM 133 - 450 12/11/2011 Normal [facility] HEMATOLOGY MPV 8.2 fL 7.4 - 10.4 12/11/2011 Normal [facility] HEMATOLOGY WBC 7.7 K/CMM 3.7 - 10.4 12/11/2011 Normal [facility] CHEMISTRY BUN 13 mg/dL 7 - 22 12/10/2011 Normal [facility] CHEMISTRY Creatinine Lvl 0.8 mg/dL 0.5 - 1.4 12/10/2011 Normal [facility] CHEMISTRY Sodium Lvl 144 meq/L 135 - 145 12/10/2011 Normal [facility] CHEMISTRY Glucose Lvl 88 mg/dL 70 - 99 12/10/2011 Normal 2Interpretive Data: Adult reference range values reflect the clinical guidelinesof the [place] [employer]. [facility] CHEMISTRY Calcium Lvl 9.8 mg/dL 8.5 - 10.5 12/10/2011 Normal [facility] CHEMISTRY CO2 26 meq/L 24 - 32 12/10/2011 Normal [facility] CHEMISTRY AGAP 12.8 meq/L 10.0 - 20.0 12/10/2011 Normal [facility] CHEMISTRY Chloride Lvl 109 meq/L 95 - 109 12/10/2011 Normal [facility] CHEMISTRY Potassium Lvl 3.8 meq/L 3.5 - 5.1 12/10/2011 Normal [facility] HEMATOLOGY Basophils # 0.0 K/CMM 0.0 - 0.2 12/10/2011 Normal [facility] HEMATOLOGY Eosinophils # 0.2 K/CMM 0.0 - 0.5 12/10/2011 Normal [facility] HEMATOLOGY Eosinophils 2.8 % 0.0 - 4.0 12/10/2011 Normal [facility] HEMATOLOGY Monocytes 6.2 % 2.0 - 12.0 12/10/2011 Normal [facility] HEMATOLOGY Segs 59.9 % 45.0 - 75.0 12/10/2011 Normal [facility] HEMATOLOGY Lymphocytes 30.5 % 20.0 - 40.0 12/10/2011 Normal [facility] HEMATOLOGY Monocytes # 0.3 K/CMM 0.0 - 0.8 12/10/2011 Normal [facility] HEMATOLOGY Lymphocytes # 1.7 K/CMM 1.0 - 5.5 12/10/2011 Normal [facility] HEMATOLOGY Segs-Bands # 3.3 K/CMM 1.5 - 8.1 12/10/2011 Normal [facility] HEMATOLOGY Basophils 0.6 % 0.0 - 1.0 12/10/2011 Normal [facility] HEMATOLOGY Platelet 168 K/CMM 133 - 450 12/10/2011 Normal [facility] HEMATOLOGY RDW 15.1 % 11.5 - 14.5 12/10/2011 HI [facility] HEMATOLOGY MCH 29.7 pg 27.0 - 31.0 12/10/2011 Normal [facility] HEMATOLOGY MCHC 33.2 g/dL 32.0 - 36.0 12/10/2011 Normal [facility] HEMATOLOGY MPV 8.1 fL 7.4 - 10.4 12/10/2011 Normal [facility] HEMATOLOGY WBC 5.6 K/CMM 3.7 - 10.4 12/10/2011 Normal [facility] HEMATOLOGY MCV 89.6 fL 81.0 - 99.0 12/10/2011 Normal [facility] HEMATOLOGY Hct 35.2 % 36.0 - 48.0 12/10/2011 LOW [facility] HEMATOLOGY Hgb 11.7 g/dL 12.0 - 16.0 12/10/2011 LOW [facility] HEMATOLOGY RBC 3.92 M/CMM 4.20 - 5.40 12/10/2011 LOW [facility] CHEMISTRY CO2 27 meq/L 24 - 32 11/26/2011 Normal [facility] CHEMISTRY Chloride Lvl 108 meq/L 95 - 109 11/26/2011 Normal [facility] CHEMISTRY Calcium Lvl 9.2 mg/dL 8.5 - 10.5 11/26/2011 Normal [facility] CHEMISTRY Sodium Lvl 142 meq/L 135 - 145 11/26/2011 Normal [facility] CHEMISTRY Potassium Lvl 3.4 meq/L 3.5 - 5.1 11/26/2011 LOW [facility] CHEMISTRY Glucose Lvl 85 mg/dL 70 - 99 11/26/2011 Normal 1Interpretive Data: Adult reference range values reflect the clinical guidelinesof the [place] [employer]. [facility] CHEMISTRY Creatinine Lvl 0.9 mg/dL 0.5 - 1.4 11/26/2011 Normal [facility] CHEMISTRY BUN 14 mg/dL 7 - 22 11/26/2011 Normal [facility] CHEMISTRY AGAP 10.4 meq/L 10.0 - 20.0 11/26/2011 Normal [facility] HEMATOLOGY Eosinophils 2.8 % 0.0 - 4.0 11/26/2011 Normal [facility] HEMATOLOGY Lymphocytes # 1.8 K/CMM 1.0 - 5.5 11/26/2011 Normal [facility] HEMATOLOGY Segs-Bands # 4.8 K/CMM 1.5 - 8.1 11/26/2011 Normal [facility] HEMATOLOGY Eosinophils # 0.2 K/CMM 0.0 - 0.5 11/26/2011 Normal [facility] HEMATOLOGY Basophils # 0.0 K/CMM 0.0 - 0.2 11/26/2011 Normal [facility] HEMATOLOGY Monocytes # 0.5 K/CMM 0.0 - 0.8 11/26/2011 Normal [facility] HEMATOLOGY Monocytes 6.5 % 2.0 - 12.0 11/26/2011 Normal [facility] HEMATOLOGY Lymphocytes 24.6 % 20.0 - 40.0 11/26/2011 Normal [facility] HEMATOLOGY Segs 65.4 % 45.0 - 75.0 11/26/2011 Normal [facility] HEMATOLOGY Basophils 0.7 % 0.0 - 1.0 11/26/2011 Normal [facility] HEMATOLOGY PTT 32.8 s 22.9 - 35.8 11/26/2011 Normal 3Interpretive Data: Heparin Therapeutic Range: 57 - 92 Seconds [facility] HEMATOLOGY PT 12.9 s 12.0 - 14.7 11/26/2011 Normal [facility] HEMATOLOGY INR 0.97 0.85 - 1.17 11/26/2011 Normal 2Interpretive Data: RECOMMENDED RANGES FOR PROTIME INR: 2.0-3.0 for most medical and surgical thromboembolic states. 2.5-3.5 for artificial heart valves and recurrent embolism.INR SHOULD BE USED ONLY FOR PATIENTS ON STABLE ANTICOAGULANT THERAPY. [facility] HEMATOLOGY MCHC 32.6 g/dL 32.0 - 36.0 11/26/[address] [facility] RDW 14.0 % 11.5 - 14.5 11/26/2011 Normal [facility] HEMATOLOGY Platelet 164 K/CMM 133 - 450 11/26/2011 Normal [facility] HEMATOLOGY MPV 7.8 fL 7.4 - 10.4 11/26/[address] [facility] Hgb 11.8 g/dL 12.0 - 16.0 11/26/2011 LOW [facility] HEMATOLOGY RBC 4.08 M/CMM 4.20 - 5.40 11/26/[address] [facility] MCH 28.9 pg 27.0 - 31.0 11/26/[address] [facility] Hct 36.1 % 36.0 - 48.0 11/26/2011 Normal [facility] HEMATOLOGY MCV 88.6 fL 81.0 - 99.0 11/26/2011 Normal [facility] HEMATOLOGY WBC 7.4 K/CMM 3.7 - 10.4 11/26/2011 Normal [facility] Vital Signs Vital Sign Value Date Comments Source Systolic (mm Hg) 125 05/05/2017 [facility] Diastolic (mm Hg) 64 05/05/2017 [facility] Heart Rate 67 05/05/2017 [facility] Respitory Rate 18 05/05/2017 [facility] Weight 81.818 05/05/2017 [facility] BMI Calculated 30.96 05/05/2017 [facility] Height 162.56 cm 05/05/2017 [facility] Heart Rate 67 05/05/2017 [facility] Respitory Rate 19 05/05/2017 [facility] Systolic (mm Hg) 137 05/05/2017 [facility] Diastolic (mm Hg) 79 05/05/2017 [facility] Temperature Oral (F) 98.6 F 05/05/2017 [facility] Respitory Rate 16 04/01/2017 [facility] Systolic (mm Hg) 129 04/01/2017 [facility] Diastolic (mm Hg) 74 04/01/2017 [facility] Heart Rate 58 04/01/2017 [facility] Temperature Oral (F) 98.9 F 04/01/2017 [facility] Systolic (mm Hg) 167 04/01/2017 [facility] Diastolic (mm Hg) 79 04/01/2017 [facility] Temperature Oral (F) 99.0 F 04/01/2017 [facility] Heart Rate 62 04/01/2017 [facility] Respitory Rate 16 04/01/2017 [facility] Temperature Oral (F) 98.8 F 04/01/2017 [facility] Systolic (mm Hg) 147 04/01/2017 [facility] Diastolic (mm Hg) 81 04/01/2017 [facility] Heart Rate 52 04/01/2017 [facility] Respitory Rate 16 04/01/2017 [facility] Weight 75 03/23/2017 [facility] Height 167.64 cm 03/22/2017 [facility] Weight 75 03/22/2017 [facility] BMI Calculated 26.69 03/22/2017 [facility] BMI Calculated 26.69 03/22/2017 [facility] Weight 75 03/22/2017 [facility] Height 167.64 cm 03/22/2017 [facility] Systolic (mm Hg) 188 10/05/2014 [facility] Diastolic (mm Hg) 88 10/05/2014 [facility] Temperature Oral (F) 98.5 F 10/05/2014 [facility] Heart Rate 77 10/05/2014 [facility] Respitory Rate 18 10/05/2014 [facility] Systolic (mm Hg) 181 10/05/2014 [facility] Diastolic (mm Hg) 84 10/05/2014 [facility] Respitory Rate 18 10/05/2014 [facility] Systolic (mm Hg) 216 10/05/2014 [facility] Diastolic (mm Hg) 77 10/05/2014 [facility] Respitory Rate 18 10/05/2014 [facility] Temperature Oral (F) 99 F 10/05/2014 [facility] Temperature Oral (F) 99.0 F 10/05/2014 [facility] Heart Rate 51 10/05/2014 [facility] Weight 76.6 10/05/2014 [facility] Heart Rate 100 10/04/2014 [facility] BMI Calculated 23.94 10/04/2014 [facility] Height 167.64 cm 10/04/2014 [facility] Weight 67.273 10/04/2014 [facility] Diastolic (mm Hg) 85 12/12/2011 [facility] Systolic (mm Hg) 179 12/12/2011 [facility] Respitory Rate 19 12/12/2011 [facility] Heart Rate 69 12/12/2011 [facility] Temperature Oral (F) 98.6 F 12/12/2011 [facility] Heart Rate 67 12/12/2011 [facility] Heart Rate 53 12/12/2011 [facility] Temperature Oral (F) 98.9 F 12/12/2011 [facility] Respitory Rate 18 12/12/2011 [facility] Systolic (mm Hg) 146 12/12/2011 [facility] Diastolic (mm Hg) 74 12/12/2011 [facility] Diastolic (mm Hg) 67 12/12/2011 [facility] Systolic (mm Hg) 128 12/12/2011 [facility] Respitory Rate 19 12/12/2011 [facility] Temperature Oral (F) 99.9 F 12/12/2011 [facility] Weight 75.909 12/10/2011 [facility] Height 165.10 cm 12/10/2011 [facility] Weight 74.545 11/26/2011 [facility] Height 165.10 cm 11/26/2011 [facility] Encounters Location Location Details Encounter Type Encounter Number Reason For Visit Attending Provider ADM Date DC Date Status Source [facility] Outpatient [id number] IBS, GE REFLUX W/O ESOPHAGITIS, CONSTIPATION WENDY TURNER 04/28/2011 Active [facility] [id number] LUMBAR SPINE JACE MCNEAL 05/12/2011 [facility] [id number] RTN GAUDENCIO AUSTIN 07/21/2011 Active [facility] CAPRICE [id number] 786.50 PALMAE GARCIA 11/26/2011 11/26/2011 Active [facility] CAPRICE [id number] CAD 414.01 PALMAE GARCIA 12/10/2011 12/12/2011 Active [facility] Outpatient [id number] THROID CYST CELISheron CARRERO 03/04/2012 Active [facility] OBS Observation Patient [id number] Natalie Garcia 10/04/2014 10/06/2014 [facility] Outpatient [id number] Celi Carrero 11/14/2014 11/15/2014 [facility] Outpatient [id number] Gaudencio Austin 07/31/2015 08/01/2015 [facility] Outpatient [id number] Celi Carrero 12/14/2015 12/15/2015 [facility] Outpatient [id number] Gaudencio Austin 08/07/2016 08/08/2016 [facility] Outpatient [id number] Carlota Turner 09/12/2016 09/13/2016 [facility] Outpatient [id number] Celi Carrero 01/15/2017 01/16/2017 [facility] Inpatient [id number] Tanner Coleman 03/22/2017 04/01/2017 [facility] Emergency [id number] Tacosusan Sauer 05/05/2017 05/05/2017 [facility] Outpatient [id number] Gaudencio Austin 08/31/2017 09/01/2017 [facility] Outpatient [id number] DVTSTAT REQUEST NATALIE GARCIA Cancel [facility] Outpatient [id number] ABD PAIN NATALIE GARCIA Active [facility] Procedures Procedure Code Date Perfomer Comments Source Back fusion [id number] [facility] Gallbladder operation [id number] [facility] Hysterectomy [id number] [facility] Knee replacement [id number] [facility]
--- OUTSIDE RECORDS SUMMARY | 2018-06-08 09:52 | XMS REPORT | CCD ---
Author Author Auto Generated Organization [facility] Address Unknown Phone Unavailable Care Team Providers Care Senior Unix Administrator Name Role Phone Ruth Yañez Ban RP Allergies, Adverse Reactions, Alerts Substance Reaction Status aspirin Canceled caffeine Canceled codeine Active Problem List Condition Effective Dates Status Back pain Active CAD - Coronary artery disease Active HTN - Hypertension Active Medications Medication Instructions Start Date End Date Status pneumococcal 0.5 ml, Route: IM, Drug Form: INJ, 08/16/2010 08/16/2010 Completed 23-valent vaccine Start date: 08/16/10 9:00:00, Stop date: 08/16/10 9:00:00 pneumococcal 0.5 ml, Route: IM, Drug Form: INJ, 12/12/2008 12/13/2008 Completed 23-valent vaccine ONCALL, Start date: 12/12/08 18:05:50, Stop date: 01/11/09 17:50:50 Immunizations Vaccine Date Status pneumococcal 23-valent vaccine 12/13/2008 Not Done pneumococcal 23-valent vaccine 08/16/2010 Not Done
--- OUTSIDE RECORDS SUMMARY | 2018-06-08 09:52 | XMS REPORT | Summary of Care ---
Author Author [facility] Organization [facility] Address Unknown Phone Unavailable Encounter HQ Mir[employer]_lauro(FIN) [id number] Date(s): 01/15/17 - 01/15/17 [facility] [address] [place] [address]- Discharge Disposition: Home or Self Care Attending Physician: Celi Parker MD Referring Physician: [...]
--- OUTSIDE RECORDS SUMMARY | 2018-06-08 09:52 | XMS REPORT | CCD ---
Author Author Auto Generated Organization [facility] Address Unknown Phone Unavailable Care Team Providers Care Sales Product Specialist Name Role Phone Natalie Garcia V RP Allergies, Adverse Reactions, Alerts Substance Reaction Status aspirin Canceled caffeine Canceled codeine Active Problem List Condition Effective Dates Status Anxiety Active Back pain Active CAD - Coronary artery disease Active DM - Diabetes mellitus Active Gastritis Active HTN - Hypertension Active Medications Medication Instructions Start Date End Date Status Lasix 40 mg oral 40 mg, 1 tab, Route: PO, Drug form: 12/11/2011 12/12/2011 Discontinued tablet TAB, Daily, Start date: 12/11/11 9:00:00, Duration: 30 day, Stop date: 01/09/12 9:00:00 Fish Oil 1 gm, 1 cap, Route: PO, Drug form: 12/11/2011 12/12/2011 Discontinued CAP, Daily, Start date: 12/11/11 9:00:00, Duration: 30 day, Stop date: 01/09/12 9:00:00 Exforge 5 mg-160 mg 1 tab, Route: PO, Drug Form: TAB, 12/11/2011 12/10/2011 Discontinued oral tablet Daily, Start date: 12/11/11 9:00:00, Duration: 30 day, Stop date: 01/09/12 9:00:00 pneumococcal 0.5 ml, Route: IM, Drug Form: INJ, 12/11/2011 12/11/2011 Completed 23-valent vaccine Start date: 12/11/11 9:00:00, Stop date: 12/11/11 9:00:00 pneumococcal 0.5 ml, Route: IM, Drug Form: INJ, 08/16/2010 08/16/2010 Completed 23-valent vaccine Start date: 08/16/10 9:00:00, Stop date: 08/16/10 9:00:00 pneumococcal 0.5 ml, Route: IM, Drug Form: INJ, 12/12/2008 12/13/2008 Completed 23-valent vaccine ONCALL, Start date: 12/12/08 18:05:50, Stop date: 01/11/09 17:50:50 Diovan 160 mg, 1 tab, Route: PO, Drug 12/11/2011 12/12/2011 Discontinued form: TAB, Daily, Start date: 12/11/11 9:00:00, Duration: 30 day, Stop date: 01/09/12 9:00:00 Restoril 30 mg, 2 cap, Route: PO, Drug form: 12/10/2011 12/12/2011 Discontinued CAP, Bedtime, Start date: 12/10/11 21:00:00, Duration: 30 day, Stop date: 01/08/12 21:00:00 acetaminophen-hydroc 1 tab, Route: PO, Drug Form: TAB, 12/10/2011 12/12/2011 Discontinued odone 325 mg-7.5 mg Q8H, PRN Pain, Start date: 12/10/11 oral tablet 17:25:00, Duration: 30 day, Stop date: 01/09/12 17:24:00 Pravachol 40 mg, 2 tab, Route: PO, Drug form: 12/10/2011 12/12/2011 Discontinued TAB, Bedtime, Start date: 12/10/11 21:00:00, Duration: 30 day, Stop date: 01/08/12 21:00:00 Norvasc 5 mg, 1 tab, Route: PO, Drug form: 12/11/2011 12/12/2011 Discontinued TAB, Daily, Start date: 12/11/11 9:00:00, Duration: 30 day, Stop date: 01/09/12 9:00:00 aspirin 325 mg 325 mg, 1 tab, Route: PO, Drug 12/11/2011 12/12/2011 Discontinued tablet form: TAB, Breakfast, Start date: 12/11/11 8:00:00, Duration: 30 day, Stop date: 01/09/12 8:00:00 Plavix 75 mg, 1 tab, Route: PO, Drug form: 12/11/2011 12/12/2011 Discontinued TAB, QAM, Start date: 12/11/11 9:00:00, Duration: 30 day, Stop date: 01/09/12 9:00:00 morphine Sulfate 2 mg, 1 mL, Route: IVP, Drug form: 12/10/2011 12/12/2011 Discontinued INJ, Q10Min, PRN Chest Pain, Start date: 12/10/11 17:22:00, Duration: 30 day, Stop date: 01/09/12 17:21:00 nitroglycerin 0.4 mg 0.4 mg, 1 tab, Route: SL, Drug 12/10/2011 12/12/2011 Discontinued sublingual tablet form: TAB, Q5Min, PRN Chest Pain, Start date: 12/10/11 17:22:00, Duration: 30 day, Stop date: 01/09/12 17:21:00 Multaq 400 mg oral 400 mg, 1 tab, PO, BID, 60 tab, 12/10/2011 Ordered tablet Substitution Allowed, TAB Lasix 40 mg oral 40 mg, 1 tab, PO, Daily, 30 tab, 12/10/2011 Ordered tablet Substitution Allowed, TAB cefazolin 1 gm, Route: IVPB, [id number], Start 12/10/2011 12/11/2011 Completed date: 12/10/11 18:00:00, Duration: 2 doses or times, Stop date: 12/11/11 2:00:00 hydrALAZINE 25 mg 50 mg, 2 tab, PO, BID, Substitution 12/10/2011 Ordered oral tablet Allowed, TAB Exforge 5 mg-160 mg 1 tab, PO, Daily, 30 tab, 12/10/2011 Ordered oral tablet Substitution Allowed, Maintenance, TAB Cymbalta 30 mg oral Substitution Allowed 12/10/2011 12/10/2011 Discontinued delayed release capsule clonidine 0.2 mg 0.2 mg, 1 tab, PO, QID, 12/10/2011 Ordered oral tablet Substitution Allowed, TAB Bystolic 10 mg oral 10 mg, 1 tab, PO, Daily, 30 tab, 12/10/2011 Ordered tablet Substitution Allowed, TAB clonidine 0.1 mg 0.1 mg, 1 tab, Route: PO, Drug 12/10/2011 12/12/2011 Discontinued oral tablet form: TAB, [id number], Start date: 12/10/11 18:00:00, Duration: 30 day, Stop date: 01/09/12 6:00:00 metoprolol 50 mg, 1 tab, Route: PO, Drug form: 12/10/2011 12/12/2011 Discontinued ERTAB, Q12H, Start date: 12/10/11 21:00:00, Duration: 30 day, Stop date: 01/09/12 9:00:00 pneumococcal 0.5 ml, Route: IM, Drug Form: INJ, 12/11/2011 12/11/2011 Completed 23-valent vaccine Daily, Start date: 12/11/11 9:00:00, Duration: 1 doses or times, Stop date: 12/11/11 9:00:00 hydrALAZINE 25 mg 50 mg, 2 tab, Route: PO, Drug form: 12/10/2011 12/12/2011 Discontinued oral tablet TAB, Q12H, Start date: 12/10/11 21:00:00, Duration: 30 day, Stop date: 01/09/12 9:00:00 Xanax 0.25 mg oral 0.25 mg, 1 tab, Route: PO, Drug 12/10/2011 12/12/2011 Discontinued tablet form: TAB, Bedtime, PRN as needed for anxiety, Start date: 12/10/11 17:30:00, Duration: 30 day, Stop date: 01/09/12 17:29:00 Multaq 400 mg, 1 tab, Route: PO, Drug 12/10/2011 12/12/2011 Discontinued form: TAB, Q12H, Start date: 12/10/11 21:00:00, Duration: 30 day, Stop date: 01/09/12 9:00:00 Immunizations Vaccine Date Status pneumococcal 23-valent vaccine 12/13/2008 Not Done pneumococcal 23-valent vaccine 08/16/2010 Not Done pneumococcal 23-valent vaccine 12/11/2011 Auth (Verified) Vital Signs Most recent to oldest [Reference Range]: 1 2 3 Height 165.10 cm (12/10/2011 11:16:00) Current Weight 76.619 kg (12/11/2011 06:06:00) Temperature Oral [96.4-99.1 DegF] 98.6 DegF (12/12/2011 12:00:00) 98.9 DegF (12/12/2011 08:00:00) 99.9 DegF *HI* (12/12/2011 04:03:00) Systolic Blood Pressure [90-140 mmHg] 179 mmHg *HI* (12/12/2011 12:00:00) 146 mmHg *HI* (12/12/2011 08:00:00) 128 mmHg (12/12/2011 04:03:00) Diastolic Blood Pressure [60-90 mmHg] 85 mmHg (12/12/2011 12:00:00) 74 mmHg (12/12/2011 08:00:00) 67 mmHg (12/12/2011 04:03:00) Respiratory Rate [14-20 BRMIN] 19 BRMIN (12/12/2011 12:00:00) 18 BRMIN (12/12/2011 08:00:00) 19 BRMIN (12/12/2011 04:03:00) Peripheral Pulse Rate [60-100 bpm] 69 bpm (12/12/2011 12:00:00) 67 bpm (12/12/2011 08:22:00) 53 bpm *LOW* (12/12/2011 08:00:00) Weight 75.909 kg (12/10/2011 11:16:00) Results CHEMISTRY Most recent to oldest [Reference Range]: 1 2 Sodium Lvl [135-145 mEq/L] 144 mEq/L (12/11/2011 04:36:00) 144 mEq/L (12/10/2011 12:45:00) Potassium Lvl [3.5-5.1 mEq/L] 3.6 mEq/L (12/11/2011 04:36:00) 3.8 mEq/L (12/10/2011 12:45:00) Chloride Lvl [95-109 mEq/L] 111 mEq/L *HI* (12/11/2011 04:36:00) 109 mEq/L (12/10/2011 12:45:00) CO2 [24-32 mEq/L] 23 mEq/L *LOW* (12/11/2011 04:36:00) 26 mEq/L (12/10/2011 12:45:00) AGAP [10.0-20.0 mEq/L] 13.6 mEq/L (12/11/2011 04:36:00) 12.8 mEq/L (12/10/2011 12:45:00) Creatinine Lvl [0.5-1.4 mg/dL] 1.0 mg/dL (12/11/2011 04:36:00) 0.8 mg/dL (12/10/2011 12:45:00) BUN [7-22 mg/dL] 16 mg/dL (12/11/2011 04:36:00) 13 mg/dL (12/10/2011 12:45:00) Glucose Lvl [70-99 mg/dL] 97 mg/dL 1 (12/11/2011 04:36:00) 88 mg/dL 2 (12/10/2011 12:45:00) Calcium Lvl [8.5-10.5 mg/dL] 9.2 mg/dL (12/11/2011:36:00) 9.8 mg/dL (12/10/2011 12:45:00) 1Interpretive Data: Adult reference range values reflect the clinical guidelinesof the [place] [employer]. 2Interpretive Data: Adult reference range values reflect the clinical guidelinesof the [place] [employer]. HEMATOLOGY Most recent to oldest [Reference Range]: 1 2 WBC [3.7-10.4 K/CMM] 7.7 K/CMM (12/11/2011 04:36:00) 5.6 K/CMM (12/10/2011 11:17:00) RBC [4.20-5.40 M/CMM] 3.50 M/CMM *LOW* (12/11/2011 04:36:00) 3.92 M/CMM *LOW* (12/10/2011 11:17:00) Hgb [12.0-16.0 g/dL] 10.5 g/dL *LOW* (12/11/2011 04:36:00) 11.7 g/dL *LOW* (12/10/2011 11:17:00) Hct [36.0-48.0 %] 30.7 % *LOW* (12/11/2011 04:36:00) 35.2 % *LOW* (12/10/2011 11:17:00) MCV [81.0-99.0 fL] 87.6 fL (12/11/2011 04:36:00) 89.6 fL (12/10/2011 11:17:00) MCH [27.0-31.0 pg] 29.9 pg (12/11/2011 04:36:00) 29.7 pg (12/10/2011 11:17:00) MCHC [32.0-36.0 g/dL] 34.1 g/dL (12/11/2011 04:36:00) 33.2 g/dL (12/10/2011 11:17:00) RDW [11.5-14.5 %] 13.9 % (12/11/2011 04:36:00) 15.1 % *HI* (12/10/2011 11:17:00) Platelet [133-450 K/CMM] 152 K/CMM (12/11/2011 04:36:00) 168 K/CMM (12/10/2011 11:17:00) MPV [7.4-10.4 fL] 8.2 fL (12/11/2011 04:36:00) 8.1 fL (12/10/2011 11:17:00) Segs [45.0-75.0 %] 63.2 % (12/11/2011 04:36:00) 59.9 % (12/10/2011 11:17:00) Lymphocytes [20.0-40.0 %] 26.3 % (12/11/2011 04:36:00) 30.5 % (12/10/2011 11:17:00) Monocytes [2.0-12.0 %] 7.6 % (12/11/2011 04:36:00) 6.2 % (12/10/2011 11:17:00) Eosinophils [0.0-4.0 %] 2.5 % (12/11/2011 04:36:00) 2.8 % (12/10/2011 11:17:00) Basophils [0.0-1.0 %] 0.4 % (12/11/2011 04:36:00) 0.6 % (12/10/2011 11:17:00) Segs-Bands # [1.5-8.1 K/CMM] 4.8 K/CMM (12/11/2011 04:36:00) 3.3 K/CMM (12/10/2011 11:17:00) Lymphocytes # [1.0-5.5 K/CMM] 2.0 K/CMM (12/11/2011 04:36:00) 1.7 K/CMM (12/10/2011 11:17:00) Monocytes # [0.0-0.8 K/CMM] 0.6 K/CMM (12/11/2011 04:36:00) 0.3 K/CMM (12/10/2011 11:17:00) Eosinophils # [0.0-0.5 K/CMM] 0.2 K/CMM (12/11/2011 04:36:00) 0.2 K/CMM (12/10/2011 11:17:00) Basophils # [0.0-0.2 K/CMM] 0.0 K/CMM (12/11/2011 04:36:00) 0.0 K/CMM (12/10/2011 11:17:00)
--- OUTSIDE RECORDS SUMMARY | 2018-06-08 09:52 | XMS REPORT | CCD ---
Author Author Auto Generated Organization [facility] Address Unknown Phone Unavailable Care Team Providers Care Erp Pm Name Role Phone Celi Parker RP Allergies, Adverse Reactions, Alerts Substance Reaction Status codeine Active Problem List Condition Effective Dates [...]
--- OUTSIDE RECORDS SUMMARY | 2018-06-08 09:52 | XMS REPORT | CCD ---
Author Author Auto Generated Organization [facility] Address Unknown Phone Unavailable Care Team Providers Care Machine Stone Polisher Name Role Phone HaleyOliver willisEly CP Unavailable Sarah Smith CP Unavailable Myriam Quiñonez CP [phone] Shae Helms CP Unavailable ChartServer, Login CP Unavailable Melinda Sanchez CP Unavailable Tres Merida CP Unavailable Phoebe Olvier CP [phone] SYSTEM, SYSTEM CP Unavailable Ruth Yañez CP Dominik Hewitt CP Abril Ireland CP [phone] Allergies, Adverse Reactions, Alerts Substance Reaction Status aspirin ?? Canceled caffeine ?? Canceled codeine ?? Active Problem List Condition Effective Dates Status Back pain ?? Active CAD - Coronary artery disease ?? Active HTN - Hypertension ?? Active Medications Medication Instructions Start Date End [...]
--- OUTSIDE RECORDS SUMMARY | 2018-06-08 09:52 | XMS REPORT | Summary of Care ---
Author Organization Unknown Address Unknown Phone Unavailable Encounter [facility]) [id number] Date(s): 10/04/14 - 10/05/14 [facility] [address] [place] [address]- Discharge Disposition: Home Physician Attending: Natalie Garcia MD Physician Admitting: Natalie Garcia MD Vital Signs 1 2 3 Most recent to oldest [Reference Range]: 167.64 cm (10/04/14 3:12 PM) Height 98.5 DegF (10/05/14 3:17 PM) 99 DegF (10/05/14 10:30 AM) 99.0 DegF (10/05/14 10:15 AM) Temperature Oral [96.4-99.1 DegF] 188/88 mmHg *HI* (10/05/14 3:17 PM) 181/84 mmHg *HI* (10/05/14 12:00 PM) 216/77 mmHg *HI* (10/05/14 11:45 AM) Blood Pressure [90-140/60-90 mmHg] 18 BRMIN (10/05/14 3:17 PM) 18 BRMIN (10/05/14 12:00 PM) 18 BRMIN (10/05/14 11:45 AM) Respiratory Rate [14-20 BRMIN] 77 bpm (10/05/14 3:17 PM) 51 bpm *LOW* (10/05/14 7:17 AM) 100 bpm (10/04/14 4:00 PM) Peripheral Pulse Rate [60-100 bpm] 76.6 kg (10/05/14 5:04 AM) 67.273 kg (10/04/14 3:12 PM) Weight 23.94 m2 (10/04/14 3:12 PM) Body Mass Index Problem List Condition Effective Dates Status Health Status Informant Acid Resolved reflux(Confirmed) Anxiety(Confirmed) Active CAD - Coronary Active artery disease(Confirmed) DM - Diabetes Active mellitus(Confirmed) Gastritis(Confirmed) Active HTN - Active Hypertension(Confirm ed) Hypertension(Confirm Resolved ed) 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 Start Date: 10/05/14 Stop Date: 10/05/14 Status: Canceled aspirin 81 mg tablet, enteric coated 162 mg, 2 tab, Route: PO, Drug form: ECTAB, Daily, Dosing Weight 76.6, kg, Start date: 10/05/14 9:00:00, Duration: 30 day, Stop date: 11/03/14 9:00:00 Notes: Do not crush or chew.(Same As: Ecotrin) Start Date: 10/05/14 Stop Date: 10/05/14 Status: Discontinued cloNIDine 0.1 mg oral tablet 0.1 mg, 1 tab, Route: PO, Drug form: TAB, ONCE, Dosing Weight 76.6, kg, Start da te: 10/05/14 5:22:00, Stop date: 10/05/14 5:22:00 Notes: (Same As: Catapres) Start Date: 10/05/14 Stop Date: 10/05/14 Status: Completed cloNIDine 0.1 mg oral tablet 0.1 mg, Route: PO, Drug form: TAB, BID, Dosing Weight 76.6, kg, Start date: 01/14 9:00:00, Duration: 30 day, Stop date: 11/03/14 17:00:00 Start Date: 10/05/14 Stop Date: 10/05/14 Status: Canceled cloNIDine 0.3 mg oral tablet 0.3 mg, 1 tab, Route: PO, Drug form: TAB, QID, Dosing Weight 76.6, kg, Start kiko e: 10/05/14 9:00:00, Duration: 30 day, Stop date: 11/03/14 21:00:00 Notes: (Same As: Catapres) Start Date: 10/05/14 Stop Date: 10/05/14 Status: Discontinued cloNIDine 0.3 mg oral tablet 0.3 mg, 1 tab, Route: PO, Drug form: TAB, ONCE, Dosing Weight 67.273, kg, Start date: 10/05/14 1:28:00, Stop date: 10/05/14 1:28:00 Notes: (Same As: Catapres) Start Date: 10/05/14 Stop Date: 10/05/14 Status: Completed cloNIDine 0.3 mg oral tablet 0.3 mg, PO, QID, # 60 tab, 0 Refill(s) Start Date: 10/04/14 Stop Date: 10/05/14 Status: Discontinued cloNIDine 0.3 mg oral tablet 0.3 mg=1 tab, PO, QID, 0 Refill(s) Start Date: 10/05/14 Status: Ordered diltiazem 10 mg, Route: IVP, ONCE, Dosing Weight 70.455, kg, Priority: STAT, Start date: 0 10/04/14 15:44:00, Stop date: 10/04/14 15:44:00 Start Date: 10/04/14 Stop Date: 10/04/14 Status: Completed fentaNYL 1 patch, Route: TOP, Drug form: ERFILM, Q72H, Dosing Weight 76.6, kg, Start date : 10/05/14 6:00:00, Duration: 30 day, Stop date: 11/01/14 6:00:00 Notes: (Same as: Nesha)Check for product integrity. Apply to intact skin"Re move old patch before application of new patch" Start Date: 10/05/14 Stop Date: 10/05/14 Status: Discontinued fentaNYL 50 mcg/hr transdermal film, extended release 1 patch, TOP, Q72H, 0 Refill(s) Start Date: 10/04/14 Stop Date: 10/05/14 Status: Discontinued Fish Oil 1,000 mg, 1 cap, Route: PO, Drug form: CAP, Daily, Dosing Weight 76.6, kg, Start date: 10/05/14 9:00:00, Duration: 30 day, Stop date: 11/03/14 9:00:00 Notes: (Same as: MaxEPA, Vista 3 fish oil )Non-Formulary Drug Start Date: 10/05/14 Stop Date: 10/05/14 Status: Discontinued Heparin - one time bolus for ACS 4,000 unit, Route: IV, Drug form: INJ, ONCE, Dosing Weight 67.273, kg, Priority: STAT, Start date: 10/04/14 22:12:00, Stop date: 10/04/14 22:12:00 Start Date: 10/04/14 Stop Date: 10/04/14 Status: Deleted Heparin - one time bolus for ACS 4,000 unit, Route: IV, Drug form: INJ, ONCE, Dosing Weight 70.455, kg, Priority: STAT, Start date: 10/04/14 16:22:00, Stop date: 10/04/14 16:22:00 Start Date: 10/04/14 Stop Date: 10/04/14 Status: Completed Heparin 30 unit/kg Bolus (Heparin Dosing Weight) Pharmacy To Manage, Route: IVP, PRN, Drug form: INJ, PRN, Heparin Protocol, Star t date: 10/04/14 22:12:00 Stop date: 11/03/14 23:11:00, 30 day Start Date: 10/04/14 Stop Date: 10/04/14 Status: Discontinued Heparin 30 unit/kg Bolus (Heparin Dosing Weight) Route: IVP, PRN, 2,000 unit, 2 mL, Drug form: INJ, PRN, Heparin Protocol, Start date: 10/04/14 16:22:00 Stop date: 11/03/14 17:21:00, 30 day Start Date: 10/04/14 Stop Date: 10/05/14 Status: Discontinued Heparin 60 unit/kg Bolus (Heparin Dosing Weight) Pharmacy To Manage, Route: IVP, PRN, Drug form: INJ, PRN, Heparin Protocol, Star t date: 10/04/14 22:12:00 Stop date: 11/03/14 23:11:00, 30 day Start Date: 10/04/14 Stop Date: 10/04/14 Status: Discontinued Heparin 60 unit/kg Bolus (Heparin Dosing Weight) Route: IVP, PRN, 4,000 unit, 4 mL, Drug form: INJ, PRN, Heparin Protocol, Start date: 10/04/14 16:22:00 Stop date: 11/03/14 17:21:00, 30 day Start Date: 10/04/14 Stop Date: 10/05/14 Status: Discontinued heparin additive 25,000 unit [12 unit/kg/hr] + Premix Diluent Dextrose 5% 500 mL 500 mL, Rate: 16.15 ml/hr, Infuse over: 31 hr, Route: IV, Dosing Weight 67.273 k g, Total Volume: 500 mL, Start date: 10/04/14 22:12:00, Duration: 30 day, Stop d ate: 11/03/14 22:11:00 Start Date: 10/04/14 Stop Date: 10/04/14 Status: Discontinued heparin additive 25,000 unit [12 unit/kg/hr] + Premix Diluent Dextrose 5% 500 mL 500 mL, Rate: 16.15 ml/hr, Infuse over: 31 hr, Route: IV, Dosing Weight 67.3 kg, Total Volume: 500 mL, Start date: 10/04/14 16:22:00, Duration: 30 day, Stop kiko e: 11/03/14 16:21:00 Start Date: 10/04/14 Stop Date: 10/05/14 Status: Discontinued influenza virus vaccine, inactivated 0.5 mL, Route: IM, Drug Form: SUSP, Daily, Start date: 10/05/14 9:00:00, Duratio n: 1 doses or times, Stop date: 10/05/14 9:00:00 Notes: (Same as: Fluzone Quadrivalent) Start Date: 10/05/14 Stop Date: 10/05/14 Status: Completed metoprolol tartrate 100 mg, 2 tab, Route: PO, Drug form: TAB, Q12H, Dosing Weight 76.6, kg, Start da te: 10/05/14 9:00:00, Duration: 30 day, Stop date: 11/03/14 21:00:00 Notes: (Same as: Lopressor) Start Date: 10/05/14 Stop Date: 10/05/14 Status: Discontinued metoprolol tartrate 50 mg, 1 tab, Route: PO, Drug form: TAB, Q12H, Dosing Weight 67.273, kg, Start d ate: 10/05/14 9:00:00, Duration: 30 day, Stop date: 11/03/14 21:00:00 Notes: (Same as: Lopressor) Start Date: 10/05/14 Stop Date: 10/05/14 Status: Canceled Metoprolol Tartrate 100 mg oral tablet 100 mg=1 tab, PO, BID, # 60 tab, 0 Refill(s) Start Date: 10/04/14 Status: Ordered morphine Sulfate 2 mg, Route: IVP, Drug form: INJ, ONCE, Dosing Weight 70.455, kg, Priority: STAT , Start date: 10/04/14 16:02:00, Stop date: 10/04/14 16:02:00 Start Date: 10/04/14 Stop Date: 10/04/14 Status: Completed multivitamin with minerals 1 tab, Route: PO, Drug Form: TAB, Dosing Weight 76.6, kg, Daily, Start date: 01/14 9:00:00, Duration: 30 day, Stop date: 11/03/14 9:00:00 Notes: (Same as:Thera-M, Theragran-M) Give with food. Start Date: 10/05/14 Stop Date: 10/05/14 Status: Discontinued nitroglycerin 0.4 mg, 1 tab, Route: SL, Drug form: TAB, Q5Min, Dosing Weight 70.455, kg, PRN C hest Pain, Priority: STAT, Start date: 10/04/14 16:02:00, Duration: 3 doses or t imes, Stop date: Limited # of times Notes: (Same as:Nitroquick, Nitrostat)"Do Not Crush" Sublingual tablet Start Date: 10/04/14 Stop Date: 10/04/14 Status: Discontinued nitroglycerin SL Tab 0.4 mg, 1 tab, Route: SL, Drug form: TAB, Q5Min, Dosing Weight 67.273, kg, PRN C hest Pain, Start date: 10/04/14 22:12:00, Duration: 3 doses or times, Stop date: Limited # of times Notes: (Same as:Nitroquick, Nitrostat)"Do Not Crush" Sublingual tablet Start Date: 10/04/14 Stop Date: 10/05/14 Status: Discontinued ondansetron 4 mg, Route: IVP, ONCE, Dosing Weight 70.455, kg, Priority: STAT, Start date: 15:41:00, Stop date: 10/04/14 15:41:00 Start Date: 10/04/14 Stop Date: 10/04/14 Status: Completed Plavix 75 mg, 1 tab, Route: PO, Drug form: TAB, Daily, Dosing Weight 76.6, kg, Start da te: 10/05/14 9:00:00, Duration: 30 day, Stop date: 11/03/14 9:00:00 Notes: (Same As: Plavix) Start Date: 10/05/14 Stop Date: 10/05/14 Status: Discontinued pneumococcal 23-valent vaccine 0.5 ml, Route: IM, Drug Form: INJ, Daily, Start date: 10/05/14 9:00:00, Duration : 1 doses or times, Stop date: 10/05/14 9:00:00 Notes: (Same as: Pneumovax 23) Refrigerate Start Date: 10/05/14 Stop Date: 10/05/14 Status: Completed potassium chloride 20 mEq, 100 mL, Route: IVPB, Drug form: INJ, Q2H, Dosing Weight 70.455, kg, Tota l dose=60 mEq, Start date: 10/04/14 18:00:00, Duration: 3 doses or times, Stop d ate: 10/04/14 22:00:00 Notes: (Same as: KCL) Infuse no faster than 10 mEq/hr if given peripherally. Start Date: 10/04/14 Stop Date: 10/04/14 Status: Completed Saline Flush 0.9% 10 ml, Route: IVP, Drug Form: INJ, Dosing Weight 67.273, kg, Q12H, Start date: 0 10/05/14 9:00:00, Duration: 30 day, Stop date: 11/03/14 21:00:00 Notes: (Same as: BD Posiflush) Start Date: 10/05/14 Stop Date: 10/05/14 Status: Discontinued Saline Flush 0.9% 10 ml, Route: IVP, Drug Form: INJ, Dosing Weight 67.273, kg, PRN, PRN Line Flush , Start date: 10/04/14 22:12:00, Duration: 30 day, Stop date: 11/03/14 23:11:00 Notes: (Same as: BD Posiflush) Start Date: 10/04/14 Stop Date: 10/05/14 Status: Discontinued Saline Flush 0.9% 10 mL, Route: IVP, Drug Form: INJ, Dosing Weight 70.455, kg, PRN, PRN Line Flush , Start date: 10/04/14 15:41:00, Duration: 30 day, Stop date: 11/03/14 16:40:00 Notes: (Same as: BD Posiflush) Start Date: 10/04/14 Stop Date: 10/05/14 Status: Discontinued Saline Flush 0.9% 10 ml, Route: IVP, Drug Form: INJ, Dosing Weight 67.273, kg, PRN, PRN Line Flush , Start date: 10/04/14 20:24:00, Duration: 30 day, Stop date: 11/03/14 21:23:00 Notes: (Same as: BD Posiflush) Start Date: 10/04/14 Stop Date: 10/05/14 Status: Discontinued Saline Flush 0.9% 10 ml, Route: IVP, Drug Form: INJ, Dosing Weight 67.273, kg, Q12H, Start date: 0 10/04/14 21:00:00, Duration: 30 day, Stop date: 11/03/14 9:00:00 Notes: (Same as: BD Posiflush) Start Date: 10/04/14 Stop Date: 10/05/14 Status: Discontinued Results ELECTROLYTES Most recent to 1 2 3 4 oldest [Reference Range]: Sodium Lvl [135-145 139 mEq/L 140 mEq/L 139 mEq/L 139 mEq/L mEq/L] (10/05/14 11:07 AM) (10/05/14 5:57 AM) (10/04/14 11:08 PM) (10/04/14 11:08 PM) Potassium Lvl 3.5 mEq/L 3.4 mEq/L 3.5 mEq/L 3.5 mEq/L [3.5-5.1 mEq/L] (10/05/14 11:07 AM) *LOW* (10/04/14:08 PM) (10/04/14 11:08 PM) (10/05/14 5:57 AM) Chloride Lvl [95-109 104 mEq/L 103 mEq/L 101 mEq/L 103 mEq/L mEq/L] (10/05/14 11:07 AM) (10/05/14 5:57 AM) (10/04/14 11:08 PM) (10/04/14 11:08 PM) CO2 [24-32 mEq/L] 29 mEq/L 31 mEq/L 31 mEq/L 32 mEq/L (10/05/14:07 AM) (10/05/14:57 AM) (10/04/14 11:08 PM) (10/04/14 11:08 PM) AGAP [10.0-20.0 9.5 mEq/L 9.4 mEq/L 10.5 mEq/L 7.5 mEq/L mEq/L] *LOW* *LOW* (10/04/14 11:08 PM) *LOW* (10/05/14:07 AM) (10/05/14 5:57 AM) (10/04/14 11:08 PM) CHEM PANEL Most recent to 1 2 3 4 oldest [Reference Range]: Creatinine Lvl 1.0 mg/dL 1.0 mg/dL 1.0 mg/dL 1.0 mg/dL [0.5-1.4 mg/dL] (10/05/14 11:07 AM) (10/05/14 5:57 AM) (10/04/14 11:08 PM) (10/04/14 11:08 PM) eGFR 63 mL/min/1.73m2 1 63 mL/min/1.73m2 2 63 mL/min/1.73m2 3 63 mL/min/1.73m2 4 *NA* *NA* *NA* *NA* (10/05/14 11:07 AM) (10/05/14 5:57 AM) (10/04/14 11:08 PM) (10/04/14 11:08 PM) BUN [7-22 mg/dL] 11 mg/dL 11 mg/dL 11 mg/dL 11 mg/dL (10/05/14 11:07 AM) (10/05/14 5:57 AM) (10/04/14 11:08 PM) (10/04/14 11:08 PM) B/C Ratio [6-25] 10 (10/04/14 3:48 PM) Glucose Lvl [70-99 117 mg/dL 5 101 mg/dL 6 110 mg/dL 7 108 mg/dL 8 mg/dL] *HI* *HI* *HI* *HI* (10/05/14 11:07 AM) (10/05/14 5:57 AM) (10/04/14 11:08 PM) (10/04/14 11:08 PM) Total Protein 8.4 g/dL [6.4-8.4 g/dL] (10/04/14 3:48 PM) Albumin Lvl [3.5-5.0 4.2 g/dL g/dL] (10/04/14 3:48 PM) Globulin [2.0-4.0 4.2 g/dL g/dL] *HI* (10/04/14 3:48 PM) A/G Ratio [0.7-1.6] 1.0 (10/04/14 3:48 PM) Calcium Lvl 9.6 mg/dL 9.6 mg/dL 9.9 mg/dL 9.8 mg/dL [8.5-10.5 mg/dL] (10/05/14 11:07 AM) (10/05/14 5:57 AM) (10/04/14 11:08 PM) (10/04/14 11:08 PM) Magnesium Lvl 1.8 mg/dL [1.8-2.4 mg/dL] (10/04/14 3:48 PM) ALT [0-65 unit/L] 180 unit/L *HI* (10/04/14 3:48 PM) AST [0-37 unit/L] 235 unit/L *HI* (10/04/14 3:48 PM) Alk Phos [39-136 176 unit/L unit/L] *HI* (10/04/14 3:48 PM) Bili Total [0.2-1.3 0.9 mg/dL mg/dL] (10/04/14 3:48 PM) 1Result Comment: The eGFR is calculated using [...] be mul tiplied by the estimated BMI. 2Result Comment: The eGFR is calculated using [...] be mul tiplied by the estimated BMI. 3Result Comment: The eGFR is calculated using [...] be mul tiplied by the estimated BMI. 4Result Comment: The eGFR is calculated using [...] be mul tiplied by the estimated BMI. 5Interpretive Data: Adult reference range values reflect the clinical guidelines of the [employer]. 6Interpretive Data: Adult reference range values reflect the clinical guidelines of the [employer]. 7Interpretive Data: Adult reference range values reflect the clinical guidelines of the [place] [employer]. 8Interpretive Data: Adult reference range values reflect the clinical guidelines of the [employer]. CARDIAC ENZYMES Most recent to 1 2 3 4 oldest [Reference Range]: Total CK [12-191 143 unit/L 100 unit/L unit/L] (10/05/14 5:57 AM) (10/04/14 3:48 PM) CK MB [0.5-3.6 3.6 ng/mL 1.7 ng/mL ng/mL] (10/05/14 5:57 AM) (10/04/14 3:48 PM) CK MB Index 2.5 1.7 [0.0-2.5] (10/05/14 5:57 AM) (10/04/14 3:48 PM) Troponin-I 0.17 ng/mL 0.21 ng/mL 0.06 ng/mL [0.00-0.40 ng/mL] (10/05/14 5:57 AM) (10/04/14 11:08 PM) (10/04/14 3:48 PM) URINE AND STOOL Most recent to 1 2 3 4 oldest [Reference Range]: UA Turbidity [Clear] Clear (10/04/14 9:18 PM) UA Color Ltyellow *NA* (10/04/14 9:18 PM) UA pH [5.0-8.0] 7.0 (10/04/14 9:18 PM) UA Spec Grav 1.043 [<=1.030] *HI* (10/04/14 9:18 PM) UA Glucose [Negative Negative mg/dL mg/dL] *NA* (10/04/14 9:18 PM) UA Blood [Negative] Negative (10/04/14 9:18 PM) UA Ketones [Negative Trace mg/dL mg/dL] *ABN* (10/04/14 9:18 PM) UA Protein [Negative 100 mg/dL mg/dL] *ABN* (10/04/14 9:18 PM) UA Urobilinogen <=1.0 mg/dL [0.1-1.0 mg/dL] *NA* (10/04/14 9:18 PM) UA Bili [Negative] Negative *NA* (10/04/14 9:18 PM) UA Leuk Est Negative [Negative] (10/04/14 9:18 PM) UA Nitrite Negative [Negative] (10/04/14 9:18 PM) UA WBC [0-5 /HPF] 3 /HPF (10/04/14 9:18 PM) UA RBC [0-2 /HPF] 5 /HPF *HI* (10/04/14 9:18 PM) UA Sq Epi [Few /LPF] Occasional /LPF *NA* (10/04/14 9:18 PM) HEMATOLOGY Most recent to 1 2 3 4 oldest [Reference Range]: WBC [3.7-10.4 K/CMM] 7.3 K/CMM 7.4 K/CMM (10/05/14 4:16 AM) (10/04/14 3:48 PM) RBC [4.20-5.40 4.24 M/CMM 4.95 M/CMM M/CMM] (10/05/14 4:16 AM) (10/04/14 3:48 PM) Hgb [12.0-16.0 g/dL] 12.7 g/dL 12.4 g/dL 14.4 g/dL (10/05/14 11:07 AM) (10/05/14 4:16 AM) (10/04/14 11:08 PM) Hct [36.0-48.0 %] 36.7 % 42.9 % (10/05/14 4:16 AM) (10/04/14 3:48 PM) MCV [80.0-98.0 fL] 86.5 fL 86.6 fL (10/05/14 4:16 AM) (10/04/14 3:48 PM) MCH [27.0-31.0 pg] 29.2 pg 29.0 pg (10/05/14 4:16 AM) (10/04/14 3:48 PM) MCHC [32.0-36.0 33.7 g/dL 33.5 g/dL g/dL] (10/05/14 4:16 AM) (10/04/14 3:48 PM) RDW [11.5-14.5 %] 13.7 % 13.4 % (10/05/14 4:16 AM) (10/04/14 3:48 PM) Platelet [133-450 157 K/CMM 172 K/CMM K/CMM] (10/05/14 4:16 AM) (10/04/14 3:48 PM) MPV [7.4-10.4 fL] 8.7 fL 8.7 fL (10/05/14 4:16 AM) (10/04/14 3:48 PM) Segs [45.0-75.0 %] 52.0 % 79.3 % (10/05/14 4:16 AM) *HI* (10/04/14 3:48 PM) Lymphocytes 35.1 % 14.9 % [20.0-40.0 %] (10/05/14 4:16 AM) *LOW* (10/04/14 3:48 PM) Monocytes [2.0-12.0 9.8 % 4.9 % %] (10/05/14 4:16 AM) (10/04/14 3:48 PM) Eosinophils [0.0-4.0 2.4 % 0.2 % %] (10/05/14 4:16 AM) (10/04/14 3:48 PM) Basophils [0.0-1.0 0.7 % 0.7 % %] (10/05/14 4:16 AM) (10/04/14 3:48 PM) Segs-Bands # 3.8 K/CMM 5.9 K/CMM [1.5-8.1 K/CMM] (10/05/14 4:16 AM) (10/04/14 3:48 PM) Lymphocytes # 2.6 K/CMM 1.1 K/CMM [1.0-5.5 K/CMM] (10/05/14 4:16 AM) (10/04/14 3:48 PM) Monocytes # [0.0-0.8 0.7 K/CMM 0.4 K/CMM K/CMM] (10/05/14 4:16 AM) (10/04/14 3:48 PM) Eosinophils # 0.2 K/CMM [0.0-0.5 K/CMM] (10/05/14 4:16 AM) Basophils # [0.0-0.2 0.1 K/CMM K/CMM] (10/05/14 4:16 AM) PT [12.0-14.7 14.5 seconds 15.2 seconds 13.3 seconds seconds] (10/05/14 5:57 AM) *HI* (10/04/14 3:48 PM) (10/04/14 11:08 PM) INR [0.85-1.17] 1.12 9 1.19 10 1.01 11 (10/05/14 5:57 AM) *HI* (10/04/14 3:48 PM) (10/04/14 11:08 PM) PTT [22.9-35.8 125.3 seconds 12, 13 34.3 seconds 14 seconds] *CRIT* (10/04/14 3:48 PM) (10/05/14 4:16 AM) 9Interpretive Data: RECOMMENDED RANGES FOR PROTIME INR: 2.0-3.0 for most medical and surgical thromboembolic states. 2.5-3.5 for artificial heart valves and recurrent embolism. INR SHOULD BE USED ONLY FOR PATIENTS ON STABLE ANTICOAGULANT THERAPY. 10Interpretive Data: RECOMMENDED RANGES FOR PROTIME INR: 2.0-3.0 for most medical and surgical thromboembolic states. 2.5-3.5 for artificial heart valves and recurrent embolism. INR SHOULD BE USED ONLY FOR PATIENTS ON STABLE ANTICOAGULANT THERAPY. 11Interpretive Data: RECOMMENDED RANGES FOR PROTIME INR: 2.0-3.0 for most medical and surgical thromboembolic states. 2.5-3.5 for artificial heart valves and recurrent embolism. INR SHOULD BE USED ONLY FOR PATIENTS ON STABLE ANTICOAGULANT THERAPY. 12Result Comment: Critical Result(s) called to Ambrose alcaraz at 10/05/2014 05:08 by PEG. Read back OK. 13Interpretive Data: Heparin Therapeutic Range: 57 - 92 Seconds 14Interpretive Data: Heparin Therapeutic Range: 57 - 92 Seconds Immunizations Vaccine Date Refusal Reason influenza virus vaccine, inactivated 10/05/14 Patient Refuses pneumococcal 23-valent vaccine 10/05/14 pneumococcal 23-valent vaccine 12/11/11 Procedures No data available for this section Social History Social History Type Response Smoking Status Never smoker; Exposure to Tobacco Smoke None; Cigarette Smoking Last 365 Days No; Reg Smoking Cessation Counseling No Assessment and Plan No data available for this section
--- OUTSIDE RECORDS SUMMARY | 2018-06-08 09:53 | XMS REPORT | Summary of Care ---
Author Author [facility] Organization [facility] Address Unknown Phone Unavailable Encounter EWA [place](KEELEY) [id number] Date(s): 03/22/17 - 04/01/17 [facility] [address] [place] [address]- [phone] Discharge Disposition: Home or Self Care Attending Physician: Tanner Coleman MD Admitting Physician: Tanner Coleman MD Vital Signs 1 2 3 Most recent to oldest [Reference Range]: 167.64 cm (03/22/17 2:19 PM) 167.64 cm (03/22/17 11:25 AM) Height 98.9 DegF (04/01/17 11:54 AM) 99.0 DegF (04/01/17 8:17 AM) 98.8 DegF (04/01/17 4:36 AM) Temperature Oral [96.4-99.1 DegF] 129/74 mmHg (04/01/17 11:54 AM) 167/79 mmHg *HI* (04/01/17 8:17 AM) 147/81 mmHg *HI* (04/01/17 4:36 AM) Blood Pressure [90-140/60-90 mmHg] 16 BRMIN (04/01/17 11:54 AM) 16 BRMIN (04/01/17 8:17 AM) 16 BRMIN (04/01/17 4:36 AM) Respiratory Rate [14-20 BRMIN] 58 bpm *LOW* (04/01/17 11:54 AM) 62 bpm (04/01/17 8:17 AM) 52 bpm *LOW* (04/01/17 4:36 AM) Peripheral Pulse Rate [60-100 bpm] 75 kg (03/23/17 8:17 AM) 75 kg (03/22/17 2:19 PM) 75 kg (03/22/17 11:25 AM) Weight 26.69 m2 (03/22/17 2:19 PM) 26.69 m2 (03/22/17 11:25 AM) Body Mass Index Problem List Condition Effective Dates Status Health Status Informant Acid Resolved reflux(Confirmed) Anxiety(Confirmed) Active CAD - Coronary Active artery disease(Confirmed) DM (diabetes Active mellitus)(Confirmed) Gastritis(Confirmed) Active HTN - Active Hypertension(Confirm ed) Hyperlipemia(Confirm Active ed) Hypertension(Confirm Active ed) 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) Neuropathy(Confirmed Active ) Stented coronary Active artery(Confirmed) Allergies, Adverse Reactions, Alerts Substance Reaction Severity Status codeine Active Medications acetylcysteine 20% 600 mg, 3 mL, Route: PO, Drug form: SOLN, Q12H, Dosing Weight 75, kg, Start date : 03/24/17 9:00:00 CDT, Duration: 4 doses or times, Stop date: 03/25/17 21:00:00 CDT Start Date: 03/24/17 Stop Date: 03/25/17 Status: Completed AMIODarone 200 mg, 1 tab, Route: PO, Drug form: TAB, Daily, Dosing Weight 75, kg, Start kiko e: 03/27/17 21:00:00 CDT, Duration: 30 day, Stop date: 04/26/17 9:00:00 CDT Notes: (Same as: Cordarone) Start Date: 03/27/17 Stop Date: 04/01/17 Status: Discontinued AMIODarone 200 mg oral tablet 200 mg=1 tab, PO, Daily, # 30 tab, 0 Refill(s) Start Date: 03/31/17 Status: Ordered Bactroban 2% nasal ointment w/applicator 1 appl, Route: NASAL, Q12H, Drug form: OINT, Start date: 03/22/17 21:00:00 CDT, Duration: 5 day, Stop date: 03/27/17 9:00:00 CDT, MRSA decolonization Start Date: 03/22/17 Stop Date: 03/27/17 Status: Completed Bystolic 20 mg, 2 tab, Route: PO, Drug form: TAB, BID, Dosing Weight 75, kg, Start date: 03/22/17 17:00:00 CDT, Duration: 30 day, Stop date: 04/21/17 9:00:00 CDT Notes: (same as: Bystolic) Start Date: 03/22/17 Stop Date: 03/22/17 Status: Discontinued Bystolic 20 mg, 2 tab, Route: PO, Drug form: TAB, BID, Dosing Weight 75, kg, Start date: 03/22/17 21:00:00 CDT, Duration: 30 day, Stop date: 04/21/17 9:00:00 CDT Notes: (same as: Bystolic) Start Date: 03/22/17 Stop Date: 04/01/17 Status: Discontinued Bystolic 20 mg oral tablet 20 mg=1 tab, PO, Daily, # 90 tab, 1 Refill(s) Start Date: 03/22/17 Status: Ordered cloNIDine 0.2 mg, 1 tab, Route: PO, Drug form: TAB, Q12H, Dosing Weight 75, kg, Priority: NOW, Start date: 03/23/17 18:03:00 CDT, Duration: 30 day, Stop date: 04/22/17 9: 00:00 CDT Notes: (Same As: Catapres) Start Date: 03/23/17 Stop Date: 04/01/17 Status: Discontinued cloNIDine 0.3 mg, Route: PO, Drug form: TAB, ONCE, Dosing Weight 75, kg, Priority: STAT, S tart date: 03/22/17 12:06:00 CDT, Stop date: 03/22/17 12:06:00 CDT Start Date: 03/22/17 Stop Date: 03/22/17 Status: Completed Colace 100 mg oral capsule 100 mg, 1 cap, Route: PO, Drug form: CAP, BID, Dosing Weight 75, kg, PRN Constip ation, Start date: 03/28/17 23:16:00 CDT, Duration: 30 day, Stop date: 04/27/17 23:15:00 CDT Notes: (Same as: Colace) (Do Not Crush) Start Date: 03/28/17 Stop Date: 04/01/17 Status: Discontinued digoxin 500 microgram, 2 mL, Route: IV, Drug form: INJ, ONCE, Dosing Weight 75, kg, Star t date: 03/23/17 18:30:00 CDT, Stop date: 03/23/17 18:30:00 CDT Notes: (Same as: Lanoxin) Start Date: 03/23/17 Stop Date: 03/23/17 Status: Completed Dilaudid 0.5 mg, 0.5 mL, Route: IVP, Drug form: INJ, ONCE, Dosing Weight 75, kg, Priority : STAT, Start date: 03/23/17 2:32:00 CDT, Stop date: 03/23/17 2:32:00 CDT Start Date: 03/23/17 Stop Date: 03/23/17 Status: Completed furosemide 20 mg oral tablet 20 mg=1 tab, PO, Daily, # 30 tab, 0 Refill(s) Start Date: 03/22/17 Status: Ordered hydrALAZINE 20 mg, 1 mL, Route: IV, Drug form: INJ, Q4H, Dosing Weight 75, kg, PRN Elevated BP, Start date: 03/22/17 17:25:00 CDT, Duration: 30 day, Stop date: 04/21/17 17: 24:00 CDT, SBP > 160 Notes: (Same as: Apresoline)Push over 5 minutes Start Date: 03/22/17 Stop Date: 04/01/17 Status: Discontinued hydrALAZINE 5 mg, Route: IVP, ONCE, Dosing Weight 75, kg, Priority: STAT, Start date: 13:57:00 CDT, Stop date: 03/22/17 13:57:00 CDT Start Date: 03/22/17 Stop Date: 03/22/17 Status: Completed hydrALAZINE 20 mg, 1 mL, Route: IV, Drug form: INJ, Q6H, Dosing Weight 75, kg, PRN Elevated BP, Start date: 03/22/17 14:12:00 CDT, Duration: 30 day, Stop date: 04/21/17 14: 11:00 CDT, SBP > 160 Notes: (Same as: Apresoline)Push over 5 minutes Start Date: 03/22/17 Stop Date: 03/22/17 Status: Discontinued Lovenox 40 mg, 0.4 mL, Route: SUB-Q, Drug form: INJ, [id number], Dosing Weight 75, kg, Sta rt date: 03/24/17 9:00:00 CDT, Duration: 30 day, Stop date: 04/22/17 9:00:00 CDT Notes: (Same as: Lovenox) Start Date: 03/24/17 Stop Date: 03/26/17 Status: Discontinued Maalox Advanced Regular Strength SUSP 30 mL, Route: PO, Drug Form: SUSP, Dosing Weight 75, kg, Q8H, PRN Heartburn, NOW , Start date: 03/24/17 16:11:00 CDT, Duration: 30 day, Stop date: 04/23/17 16:10 :00 CDT Notes: (aluminum hydroxide-magnesium hyd-simethicone [phone]/5ml 30 ml ud S US) Start Date: 03/24/17 Stop Date: 04/01/17 Status: Discontinued metoprolol tartrate 100 mg, 2 tab, Route: PO, Drug form: TAB, Q12H, Dosing Weight 75, kg, Start date : 03/22/17 21:00:00 CDT, Duration: 30 day, Stop date: 04/21/17 9:00:00 CDT Notes: (Same as: Lopressor) Start Date: 03/22/17 Stop Date: 03/22/17 Status: Canceled morphine Sulfate 3 mg, 0.75 mL, Route: IV, Drug form: SOLN, Q2H, Dosing Weight 75, kg, PRN Pain S core 4-6, Start date: 03/23/17 10:37:00 CDT, Duration: 30 day, Stop date: 10:36:00 CDT Notes: (Same as:MORPhine Sulfate) Start Date: 03/23/17 Stop Date: 04/01/17 Status: Discontinued niCARdipine 40 mg/ NS 200 ml IV Soln (premix) 40 mg 40 mg, 200 mL, Rate: Titrate, Start Dose: 5 mg/hr, Titration: 2.5 mg/hr every 15 minutes, Goal(s): to keep SBP < 130, Max Dose: 15 mg/hr, Route: IV, Dosing Weight 75 kg, Total Volume: 200, Start date: 03/23/17 14:45:00 CDT, Duration: 30 day, Stop date... Notes: Same as: CardeneConcentration: (0.2 mg /1 ml ) Start Date: 03/23/17 Stop Date: 03/24/17 Status: Voided With Results NIFEdipine 60 mg oral tablet, extended release 60 mg, 1 tab, Route: PO, Drug form: ERTAB, BID, Dosing Weight 75, kg, Start date : 03/23/17 9:00:00 CDT, Duration: 30 day, Stop date: 04/21/17 21:00:00 CDT Notes: (Same as: Adalat CC, Procardia XL) Give on empty stomach. Take 1 hour be fore or 2 hours after meal; "Avoid grapefruit and grapefruit juice". Do not cru sh Start Date: 03/23/17 Stop Date: 03/23/17 Status: Discontinued NIFEdipine 60 mg oral tablet, extended release 60 mg, 1 tab, Route: PO, Drug form: ERTAB, Q12H, Dosing Weight 75, kg, Start kiko e: 03/22/17 21:00:00 CDT, Duration: 30 day, Stop date: 04/21/17 9:00:00 CDT Start Date: 03/22/17 Stop Date: 03/23/17 Status: Discontinued NIFEdipine 60 mg oral tablet, extended release 60 mg=1 tab, PO, Q12H, # 30 tab, 0 Refill(s) Start Date: 03/31/17 Status: Ordered NIFEdipine 60 mg oral tablet, extended release 60 mg, 1 tab, Route: PO, Drug form: ERTAB, Q12H, Dosing Weight 75, kg, Start kiko e: 03/25/17 21:00:00 CDT, Duration: 30 day, Stop date: 04/24/17 9:00:00 CDT Notes: (Same as: Adalat CC, Procardia XL) Give on empty stomach. Take 1 hour be fore or 2 hours after meal; "Avoid grapefruit and grapefruit juice". Do not cru sh Start Date: 03/25/17 Stop Date: 04/01/17 Status: Discontinued Norvasc 10 mg, Route: PO, ONCE, Dosing Weight 75, kg, Start date: 03/22/17 13:42:00 CDT, Stop date: 03/22/17 13:42:00 CDT Start Date: 03/22/17 Stop Date: 03/22/17 Status: Completed Plavix 75 mg, 1 tab, Route: PO, Drug form: TAB, Daily, Dosing Weight 75, kg, Start date : 03/23/17 9:00:00 CDT, Duration: 30 day, Stop date: 04/21/17 9:00:00 CDT Notes: (Same As: Plavix) Start Date: 03/23/17 Stop Date: 04/01/17 Status: Discontinued pneumococcal 13-valent vaccine 0.5 mL, Route: IM, Drug Form: INJ, Daily, Start date: 03/23/17 9:00:00 CDT, Stop date: 03/23/17 21:00:00 CDT Notes: Shake well prior to use (Same as: Prevnar 13) Start Date: 03/23/17 Stop Date: 03/24/17 Status: Deleted Protonix 40 mg, 1 tab, Route: PO, Drug form: ECTAB, Before Dinner, Dosing Weight 75, kg, Start date: 03/24/17 16:30:00 CDT, Duration: 30 day, Stop date: 04/22/17 16:30:0 0 CDT Notes: Tablet should not be chewed or crushed.(Same as: Protonix) Start Date: 03/24/17 Stop Date: 04/01/17 Status: Discontinued Protonix 40 mg oral enteric coated tablet 40 mg=1 tab, PO, BID, 0 Refill(s) Start Date: 03/22/17 Status: Ordered Saline Flush 0.9% 10 mL, Route: IVP, Drug Form: INJ, Dosing Weight 75, kg, PRN, PRN Line Flush, St art date: 03/22/17 11:52:00 CDT, Duration: 30 day, Stop date: 04/21/17 11:51:00 CDT Notes: (Same as: BD Posiflush) Start Date: 03/22/17 Stop Date: 03/24/17 Status: Discontinued sodium chloride 0.45% 1000 ml INJ 1,000 mL 1,000 mL, Rate: 75 ml/hr, Infuse over: 13.3 hr, Route: IV, Dosing Weight 75 kg, Total Volume: 1,000, Start date: 03/24/17 8:43:00 CDT, Duration: 30 day, Stop da te: 04/23/17 8:42:00 CDT Start Date: 03/24/17 Stop Date: 03/25/17 Status: Discontinued spironolactone 50 mg, 1 tab, Route: PO, Drug form: TAB, Daily, Dosing Weight 75, kg, Start date : 03/24/17 9:00:00 CDT, Duration: 30 day, Stop date: 04/22/17 9:00:00 CDT Notes: (Same As: Aldactone) Start Date: 03/24/17 Stop Date: 03/24/17 Status: Discontinued spironolactone 50 mg oral tablet 50 mg=1 tab, PO, Daily, # 30 tab, 1 Refill(s) Start Date: 03/22/17 Stop Date: 04/21/17 Status: Ordered Tekturna 150 mg oral tablet 150 mg=1 tab, PO, Daily, # 30 tab, 0 Refill(s) Start Date: 03/22/17 Status: Ordered Tylenol 650 mg, 2 tab, Route: PO, Drug form: TAB, Q6H, Dosing Weight 75, kg, PRN Pain Sc ore 1-3, Start date: 03/22/17 23:26:00 CDT, Duration: 30 day, Stop date: 7 23:25:00 CDT Notes: Do not exceed 4 gm/day. (Same as: Tylenol) Start Date: 03/22/17 Stop Date: 04/01/17 Status: Discontinued Ultram 50 mg oral tablet 50 mg, 1 tab, Route: PO, Drug form: TAB, Q6H, Dosing Weight 75, kg, PRN Pain Sco re 1-3, Start date: 03/22/17 14:14:00 CDT, Duration: 30 day, Stop date: 04/21/17 14:13:00 CDT Notes: Not to exceed 400mg/day. (Same As: Ultram) Start Date: 03/22/17 Stop Date: 04/01/17 Status: Discontinued Valium 10 mg, 2 tab, Route: PO, Drug form: TAB, ONCE, Dosing Weight 75, kg, PRN See Junie cleveland's Notes, Start date: 03/22/17 16:49:00 CDT Notes: (Same as: Valium) Start Date: 03/22/17 Stop Date: 03/23/17 Status: Completed Visipaque 75 mL, Route: IV, Drug form: SOLN, ONCE, Dosing Weight 75, kg, Start date: 03/23 9:08:00 CDT, Stop date: 03/23/17 9:08:00 CDT Notes: (Same as: Curly).WASTE: F/P - Black; E - Municipal Trash Bin Start Date: 03/23/17 Stop Date: 03/24/17 Status: Completed Xanax 0.5 mg oral tablet 0.5 mg, 1 tab, Route: PO, Drug form: TAB, Q8H, Dosing Weight 75, kg, PRN Anxiety , Start date: 03/22/17 16:54:00 CDT, Duration: 30 day, Stop date: 04/21/17 16:53 :00 CDT Notes: With food or milk(Same as: Xanax) Start Date: 03/22/17 Stop Date: 04/01/17 Status: Discontinued Zofran 4 mg, 2 mL, Route: IV, Drug form: INJ, Q4H, Dosing Weight 75, kg, PRN as needed for nausea/vomiting, Start date: 03/23/17 7:56:00 CDT, Duration: 30 day, Stop da te: 04/22/17 7:55:00 CDT Notes: (Same as: Zofran) MEDICATION WASTE Product Size: 4 mgProduct Was [place]: _0__ mg Start Date: 03/23/17 Stop Date: 04/01/17 Status: Discontinued Results ELECTROLYTES 1 2 3 Most recent to oldest [Reference Range]: 140 mEq/L (03/25/17 5:17 AM) 141 mEq/L (03/24/17 7:50 AM) 139 mEq/L (03/22/17 11:57 AM) Sodium Lvl [135-145 mEq/L] 4.1 mEq/L (03/25/17 5:17 AM) 4.2 mEq/L (03/24/17 7:50 AM) 3.7 mEq/L (03/22/17 11:57 AM) Potassium Lvl [3.5-5.1 mEq/L] 105 mEq/L (03/25/17 5:17 AM) 106 mEq/L (03/24/17 7:50 AM) 107 mEq/L (03/22/17 11:57 AM) Chloride Lvl [95-109 mEq/L] 26 mEq/L (03/25/17 5:17 AM) 27 mEq/L (03/24/17 7:50 AM) 29 mEq/L (03/22/17 11:57 AM) CO2 [24-32 mEq/L] 13.1 mEq/L (03/25/17 5:17 AM) 12.2 mEq/L (03/24/17 7:50 AM) 6.7 mEq/L *LOW* (03/22/17 11:57 AM) AGAP [10.0-20.0 mEq/L] CHEM PANEL 1 2 3 Most recent to oldest [Reference Range]: 1.10 mg/dL (03/25/17 5:17 AM) 1.60 mg/dL *HI* (03/24/17 7:50 AM) 0.98 mg/dL (03/22/17 11:57 AM) Creatinine Lvl [0.50-1.40 mg/dL] 48 mL/min/1.73m2 1 *NA* (03/25/17 5:17 AM) 30 mL/min/1.73m2 2 *NA* (03/24/17 7:50 AM) 55 mL/min/1.73m2 3 *NA* (03/22/17 11:57 AM) eGFR 31 mg/dL *HI* (03/25/17 5:17 AM) 37 mg/dL *HI* (03/24/17 7:50 AM) 21 mg/dL (03/22/17 11:57 AM) BUN [7-22 mg/dL] 21 (03/22/17 11:57 AM) B/C Ratio [6-25] 93 mg/dL (03/25/17 5:17 AM) 111 mg/dL *HI* (03/24/17 7:50 AM) 91 mg/dL (03/22/17 11:57 AM) Glucose Lvl [70-99 mg/dL] 7.0 g/dL (03/22/17 11:57 AM) Total Protein [6.4-8.4 g/dL] 3.5 g/dL (03/22/17 11:57 AM) Albumin Lvl [3.5-5.0 g/dL] 3.5 g/dL (03/22/17 11:57 AM) Globulin [2.7-4.2 g/dL] 1.0 (03/22/17 11:57 AM) A/G Ratio [0.7-1.6] 9.6 mg/dL (03/25/17 5:17 AM) 9.8 mg/dL (03/24/17 7:50 AM) 9.3 mg/dL (03/22/17 11:57 AM) Calcium Lvl [8.5-10.5 mg/dL] 2.1 mg/dL (03/24/17 7:50 AM) Magnesium Lvl [1.8-2.4 mg/dL] 18 unit/L (03/22/17 11:57 AM) ALT [0-65 unit/L] 13 unit/L (03/22/17 11:57 AM) AST [0-37 unit/L] 54 unit/L (03/22/17 11:57 AM) Alk Phos [39-136 unit/L] 0.8 mg/dL (03/22/17 11:57 AM) Bili Total [0.2-1.3 mg/dL] 1Result Comment: The eGFR is calculated using [...] be mul tiplied by the estimated BMI. CARDIAC ENZYMES 1 2 3 Most recent to oldest [Reference Range]: 85 unit/L (03/22/17 11:57 AM) Total CK [12-191 unit/L] 1.3 ng/mL (03/22/17 11:57 AM) CK MB [0.5-3.6 ng/mL] 1.5 (03/22/17 11:57 AM) CK MB Index [0.0-2.5] 0.04 ng/mL (03/22/17 11:57 AM) Troponin-I [0.00-0.40 ng/mL] IMMUNOLOGY 1 2 3 Most recent to oldest [Reference Range]: 30.21 mg/L *HI* (03/24/17 5:31 AM) Chase Free Light Chains [3.30-19.40 mg/L] 20.33 mg/L (03/24/17 5:31 AM) Lambda Free Light Chains [5.70-26.30 mg/L] 1.49 Ratio (03/24/17 5:31 AM) Chase/Lambda Free Light Chains Ratio [0.26-1.65 Ratio] 55.9 REL % (03/23/17 3:30 PM) Albumin % [55.8-66.1 REL %] 5.3 REL % *HI* (03/23/17 3:30 PM) Alpha 1 % [2.8-4.9 REL %] 9.6 REL % (03/23/17 3:30 PM) Alpha 2 % [7.0-11.9 REL %] 11.4 REL % (03/23/17 3:30 PM) Beta % [7.8-13.7 REL %] 17.8 REL % (03/23/17 3:30 PM) Gamma % [11.1-18.7 REL %] 3.91 g/dL (03/23/17 3:30 PM) Albumin (SPE) [3.57-5.55 g/dL] 0.37 g/dL (03/23/17 3:30 PM) Alpha 1 Glob [0.18-0.41 g/dL] 0.67 g/dL (03/23/17 3:30 PM) Alpha 2 Glob [0.45-1.00 g/dL] 0.80 g/dL (03/23/17 3:30 PM) Beta Glob [0.50-1.15 g/dL] 1.25 g/dL (03/23/17 3:30 PM) Gamma Glob [0.71-1.57 g/dL] 7.0 g/dL (03/23/17 3:30 PM) Tot Prot (SPE) [6.4-8.4 g/dL] Total protein and serum albumin levels are within reference ranges. All globulin fractions are present in a normal distribution. No monoclonal proteins are identified. Serum capillary electrophoresis is without significant abnormalities. Interpretation performed at [facility]. *NA* (03/23/17 3:30 PM) SPE Interp 304 mg/24hrs *NA* (03/25/17 6:47 AM) 24Hr UPE 32 mg/dL *NA* (03/25/17 6:47 AM) 24 UPE Tot Prot 950 mL *NA* (03/25/17 6:47 AM) 24 UPE Tot Vol Urine protein consists primarily of albumin. No monoclonal bands are identified. Interpretation performed at [facility]. *NA* (03/25/17 6:47 AM) 24Hr UPE Int HEMATOLOGY 1 2 3 Most recent to oldest [Reference Range]: 13.1 K/CMM *HI* (03/26/17 3:55 PM) 13.4 K/CMM *HI* (03/24/17 7:50 AM) 9.0 K/CMM (03/22/17 11:57 AM) WBC [3.7-10.4 K/CMM] 4.63 M/CMM (03/26/17 3:55 PM) 4.26 M/CMM (03/24/17 7:50 AM) 4.14 M/CMM *LOW* (03/22/17 11:57 AM) RBC [4.20-5.40 M/CMM] 13.6 g/dL (03/26/17 3:55 PM) 12.5 g/dL (03/24/17 7:50 AM) 12.1 g/dL (03/22/17 11:57 AM) Hgb [12.0-16.0 g/dL] 41.3 % (03/26/17 3:55 PM) 37.6 % (03/24/17 7:50 AM) 36.2 % (03/22/17 11:57 AM) Hct [36.0-48.0 %] 89.3 fL (03/26/17 3:55 PM) 88.3 fL (03/24/17 7:50 AM) 87.5 fL (03/22/17 11:57 AM) MCV [80.0-98.0 fL] 29.3 pg (03/26/17 3:55 PM) 29.4 pg (03/24/17 7:50 AM) 29.3 pg (03/22/17 11:57 AM) MCH [27.0-31.0 pg] 32.8 g/dL (03/26/17 3:55 PM) 33.3 g/dL (03/24/17 7:50 AM) 33.5 g/dL (03/22/17 11:57 AM) MCHC [32.0-36.0 g/dL] 14.8 % *HI* (03/26/17 3:55 PM) 14.9 % *HI* (03/24/17 7:50 AM) 14.4 % (03/22/17 11:57 AM) RDW [11.5-14.5 %] 196 K/CMM (03/26/17 3:55 PM) 183 K/CMM (03/24/17 7:50 AM) 158 K/CMM (03/22/17 11:57 AM) Platelet [133-450 K/CMM] 8.2 fL (03/26/17 3:55 PM) 8.9 fL (03/24/17 7:50 AM) 8.5 fL (03/22/17 11:57 AM) MPV [7.4-10.4 fL] 72.0 % (03/26/17 3:55 PM) 77.9 % *HI* (03/24/17 7:50 AM) 62.9 % (03/22/17 11:57 AM) Segs [45.0-75.0 %] 0.0 % (03/26/17 3:55 PM) Bands [0.0-11.0 %] 21.0 % (03/26/17 3:55 PM) 10.6 % *LOW* (03/24/17 7:50 AM) 26.3 % (03/22/17 11:57 AM) Lymphocytes [20.0-40.0 %] 0.0 % (03/26/17 3:55 PM) Atypical Lymphs [<=0.0 %] 5.0 % (03/26/17 3:55 PM) 10.9 % (03/24/17 7:50 AM) 6.7 % (03/22/17 11:57 AM) Monocytes [2.0-12.0 %] 2.0 % (03/26/17 3:55 PM) 0.1 % (03/24/17 7:50 AM) 3.5 % (03/22/17 11:57 AM) Eosinophils [0.0-4.0 %] 0.5 % (03/24/17 7:50 AM) 0.6 % (03/22/17 11:57 AM) Basophils [0.0-1.0 %] 9.4 K/CMM *HI* (03/26/17 3:55 PM) 10.4 K/CMM *HI* (03/24/17 7:50 AM) 5.7 K/CMM (03/22/17 11:57 AM) Segs-Bands # [1.5-8.1 K/CMM] 2.8 K/CMM (03/26/17 3:55 PM) 1.4 K/CMM (03/24/17 7:50 AM) 2.4 K/CMM (03/22/17 11:57 AM) Lymphocytes # [1.0-5.5 K/CMM] 0.7 K/CMM (03/26/17 3:55 PM) 1.5 K/CMM *HI* (03/24/17 7:50 AM) 0.6 K/CMM (03/22/17 11:57 AM) Monocytes # [0.0-0.8 K/CMM] 0.3 K/CMM (03/26/17 3:55 PM) 0.3 K/CMM (03/22/17 11:57 AM) Eosinophils # [0.0-0.5 K/CMM] 0.1 K/CMM (03/24/17 7:50 AM) 0.1 K/CMM (03/22/17 11:57 AM) Basophils # [0.0-0.2 K/CMM] Normal (03/26/17 3:55 PM) RBC Morph Normal (03/26/17 3:55 PM) Plt Morph 16 mm/hr (03/23/17 3:30 PM) Sed Rate [0-20 mm/hr] 1.5 % (03/26/17 3:55 PM) Retic Auto [0.5-1.5 %] 13.3 seconds (03/22/17 11:57 AM) PT [12.0-14.7 seconds] 0.99 (03/22/17 11:57 AM) INR [0.85-1.17] 32.0 seconds (03/22/17 11:57 AM) PTT [22.9-35.8 seconds] Immunizations Given and Recorded Vaccine Date Status Refusal Reason pneumococcal 13-valent vaccine 03/24/17 Given pneumococcal 23-valent vaccine 10/05/14 Given pneumococcal 23-valent [...] Smoking Cessation Counseling No Assessment and Plan Extracted from: Title: Bone/bone marrow biopsy Author: Ramon Fernandez MD Date: 03/26/17 HPI: 82 F with multiple small lytic lesions who presents for bone marrow biopsy. PMH/PSH: Acid reflux Back fusion Gallbladder operation Hysterectomy Knee replacement Medications: Scheduled Meds (6):NIFEdipine (NIFEdipine 60 mg oral tablet, extended release), cloNIDine, clopidogrel (Plavix), mupirocin topical (Bactroban 2% nasal ointment w/applicator), nebivolol (Bystolic), pantoprazole (Protonix) Unscheduled Meds: None PRN Meds (7):ALPRAZOLam (Xanax 0.5 mg oral tablet), Al hydroxide/Mg hydroxide/simethicone (Maalox Advanced Regular Strength SUSP), acetaminophen (Tylenol), hydrALAZINE, morphine Sulfate, ondansetron (Zofran), tramadol (Ultram 50 mg oral tablet) One Time Meds: None Continuous Infusions: None Allergies: codeine Review of systems: No fever, chills, bodyaches, chest pain, shortness of breath, N/V/D. ROS negative except as stated in HPI. VitalsTmp(F)[id number] 03/26 11:[id number]--- 03/26 07:[id number]--- 03/26 [id number]--- 03/26 [id number]--- 03/25 21:58----[id number]------ 24 Hr Tmax: 99.7F (37.61c) at 03/25 20:00Vital Signs are the last 5 in the past 48 hours. Physical Exam: General: No acute distress, awake/alert/oriented x 3 Pulmonary: Lungs clear bilaterally, no rales or wheezes Cardiac: Regular rate and rhythm, no murmur Abdomen: Soft, nontender, nondistended, normal bowel sounds, no rebound/guarding Extremities: Femoral pulses intact bilaterally, no deformity The available relevant labs and imaging were reviewed. The Patient's ASA classification is 2. The Mallampati score is 2. The patient is an appropriate candidate for moderate sedation. The risks of the procedure, including pain, bleeding, infection, damage to adjacent structures, need for additional procedures, and any other procedure- specific risks were discussed with the patient and documented in the signed consent form. The patient understands and wishes to undergo the procedure. Will plan on performing L iliac bone marrow biopsy, and taking a biopsy trajectory which will also sample multiple of the small lytic lesions on most recent CT. Extracted from: Title: HO Consult Author: Alexandre Holt MD Date: 03/23/17 Hematology Oncology Consult Consulting Physician: Dr Coleman Reason for consult: lytic bone lesions HPI: Ms De La Garza is an 82 yo AAF with PMH as below, including HTN, now admitted with hypertensive urgency. Patient underwent CTA Abdomen in evaluation for renal artery stenosis, which was not found, but instead there was a comment that patient has diffuse bone lytic lesions. Hematology is consulted for evaluation of lytic lesions. Patient states that her headache is improved, but she coninues to have nausea.She denies ever being told that she had any blood problems. 12 system ROS was performed and was unremarkable apartfrom what is mentioned in HPI PMH: HTN diabetes type 2 hyperlipidemia CAD - status post cardiac stenting COPD CHF gastritis osteoarthritis PSH: Status post knee replacement. SOCIAL HISTORY: Negative for tobacco smoking, negative for alcohol drinking. Negative for IV drug abuse. She lives at home with family. 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 FAMILY HISTORY: Noncontributory. Physical Exam: Vitals signs reviewed - BP is improved Gen: NAD HEENT: NC/AT, anicteric sclera CV: irregularly irregular rate, no M/R/G Chest: CTAB, no W/R/R Abd: soft, +BS, NT/ND : no suprapubic tenderness Extrem: no edema noted Labs reviewed, noted normal Hgb, normal Cr, normal globulin gap, normal Ca Imagin03/23/17 CTA Abdomen: IMPRESSION: 1. No CT or CTA evidence for renal artery stenosis. No significant visceral artery stenosis. No suspicious renal lesions. No adrenal mass. 5 mm nonobstructive right renal lower pole calculus. No other acute renal or upper abdominal CT findings. Diffuse small lytic changes throughout the skeleton. Correlate clinically for myeloma or metastatic disease. A/P: Ms De La Garza is an 82 yo AAF with PMH as below, including HTN, now admitted with hypertensive urgency. Hematology is consulted for evaluation of incidentally found lytic lesions on the CTA Lytic lesions, incidental finding in the setting of diffuse osteopenia, new - patient shows none of the other CRAB criteria - will obtain SPEP, 24-hr UPEP, free light chain ratio - will discuss with radiologist his findings to see how concerning they are, especialy since patient has osteopenia, and if any of the lesions would need to be biopsied if initial work up is negative - discussed this plan with the patient and she is agreeable Will continue to follow with you
--- OUTSIDE RECORDS SUMMARY | 2018-06-08 09:53 | XMS REPORT | Summary of Care ---
Author Author [facility] Organization [facility] Address Unknown Phone Unavailable Encounter HQ Tyrone_lauro(FIN) [id number] Date(s): 08/31/17 - 08/31/17 [facility] [address] [place] [address]- Encounter Diagnosis Encounter for screening mammogram for malignant neoplasm of breast (Final) - 09/01/17 Discharge Disposition: Home or Self Care Attending [...] Procedures Procedure Date Related Diagnosis Body Site Status Back fusion Completed Gallbladder operation Completed Hysterectomy Completed Knee replacement Completed Social History Social History Type Response Smoking Status Never smoker; Exposure to Tobacco Smoke None; Cigarette Smoking Last 365 Days No; Reg Smoking Cessation Counseling No entered on: 05/05/17 Assessment and Plan No data available for this section
--- OUTSIDE RECORDS SUMMARY | 2018-06-08 09:53 | XMS REPORT | Summary of Care ---
Author Author [facility] Organization [facility] Address Unknown Phone Unavailable Encounter EWA Stratton(KEELEY) [id number] Date(s): 05/05/17 - 05/05/17 [facility] [address] [place] [address]- Discharge Diagnosis: Acute non intractable tension-type headache Discharge Diagnosis: Essential hypertension Discharge Disposition: Home or Self Care Attending Physician: Taco Sauer MD Vital Signs Most recent to 1 2 oldest [Reference Range]: Height 162.56 cm (05/05/17 5:36 AM) Temperature Oral 98.6 DegF [96.4-99.1 DegF] (05/05/17 5:36 AM) Blood Pressure 125/64 mmHg 137/79 mmHg [90-140/60-90 mmHg] (05/05/17 6:28 AM) (05/05/17 5:36 AM) Respiratory Rate 18 BRMIN 19 BRMIN [14-20 BRMIN] (05/05/17 6:28 AM) (05/05/17 5:36 AM) Peripheral Pulse 67 bpm 67 bpm Rate [60-100 bpm] (05/05/17 6:28 AM) (05/05/17 5:36 AM) Weight 81.818 kg (05/05/17 5:36 AM) Body Mass Index 30.96 m2 (05/05/17 5:36 AM) Problem List Condition Effective Dates Status Health [...] No data available for this section Results ELECTROLYTES Most recent to 1 oldest [Reference Range]: Sodium Lvl [135-145 139 mEq/L mEq/L] (05/05/17 5:57 AM) Potassium Lvl 4.0 mEq/L [3.5-5.1 mEq/L] (05/05/17 5:57 AM) Chloride Lvl [95-109 104 mEq/L mEq/L] (05/05/17 5:57 AM) CO2 [24-32 mEq/L] 27 mEq/L (05/05/17 5:57 AM) AGAP [10.0-20.0 12.0 mEq/L mEq/L] (05/05/17 5:57 AM) CHEM PANEL Most recent to 1 oldest [Reference Range]: Creatinine Lvl 1.30 mg/dL [0.50-1.40 mg/dL] (05/05/17 5:57 AM) eGFR 39 mL/min/1.73m2 1 *NA* (05/05/17 5:57 AM) BUN [7-22 mg/dL] 22 mg/dL (05/05/17 5:57 AM) Glucose Lvl [70-99 109 mg/dL mg/dL] *HI* (05/05/17 5:57 AM) Calcium Lvl 9.5 mg/dL [8.5-10.5 mg/dL] (05/05/17 5:57 AM) 1Result Comment: The eGFR is calculated [...] tiplied by the estimated BMI. CARDIAC ENZYMES Most recent to 1 oldest [Reference Range]: Total CK [12-191 60 unit/L unit/L] (05/05/17 5:57 AM) CK MB [0.5-3.6 <0.5 ng/mL ng/mL] (05/05/17 5:57 AM) CK MB Index <0.8 [0.0-2.5] (05/05/17 5:57 AM) Troponin-I 0.05 ng/mL [0.00-0.40 ng/mL] (05/05/17 5:57 AM) HEMATOLOGY Most recent to 1 oldest [Reference Range]: WBC [3.7-10.4 K/CMM] 8.7 K/CMM (05/05/17 5:57 AM) RBC [4.20-5.40 4.08 M/CMM M/CMM] *LOW* (05/05/17 5:57 AM) Hgb [12.0-16.0 g/dL] 12.0 g/dL (05/05/17 5:57 AM) Hct [36.0-48.0 %] 35.4 % *LOW* (05/05/17 5:57 AM) MCV [80.0-98.0 fL] 86.9 fL (05/05/17 5:57 AM) MCH [27.0-31.0 pg] 29.4 pg (05/05/17 5:57 AM) MCHC [32.0-36.0 33.9 g/dL g/dL] (05/05/17 5:57 AM) RDW [11.5-14.5 %] 14.7 % *HI* (05/05/17:57 AM) Platelet [133-450 179 K/CMM K/CMM] (05/05/17 5:57 AM) MPV [7.4-10.4 fL] 7.6 fL (05/05/17 5:57 AM) Segs [45.0-75.0 %] 61.2 % (05/05/17 5:57 AM) Lymphocytes 26.2 % [20.0-40.0 %] (05/05/17 5:57 AM) Monocytes [2.0-12.0 7.8 % %] (05/05/17 5:57 AM) Eosinophils [0.0-4.0 3.6 % %] (05/05/17 5:57 AM) Basophils [0.0-1.0 1.2 % %] *HI* (05/05/17 5:57 AM) Segs-Bands # 5.3 K/CMM [1.5-8.1 K/CMM] (05/05/17 5:57 AM) Lymphocytes # 2.3 K/CMM [1.0-5.5 K/CMM] (05/05/17 5:57 AM) Monocytes # [0.0-0.8 0.7 K/CMM K/CMM] (05/05/17 5:57 AM) Eosinophils # 0.3 K/CMM [0.0-0.5 K/CMM] (05/05/17 5:57 AM) Basophils # [0.0-0.2 0.1 K/CMM K/CMM] (05/05/17 5:57 AM) PT [12.0-14.7 13.1 seconds seconds] (05/05/17 5:57 AM) INR [0.85-1.17] 0.97 (05/05/17 5:57 AM) PTT [22.9-35.8 28.6 seconds seconds] (05/05/17 5:57 AM) Immunizations Given and Recorded Vaccine Date Status [...]
--- OUTSIDE RECORDS SUMMARY | 2018-06-08 09:53 | XMS REPORT ---
Author Author [facility] Organization [facility] Address Unknown Phone Unavailable Care Team Providers Care Loan Documents Closer Name Role Phone Mariah MCBRIDE Unavailable Unavailable Payers Payer Name Policy Type Policy Number Effective Date Expiration Date Problems This patient has no known problems. Allergies, Adverse Reactions, Alerts Allergy Name Allergy Type Status Severity Reaction(s) Onset Date Inactive Date Treating Clinician Comments hyacinth JONES Active SV 2013-01-10 00:00:00 Medications This patient has no known medications. Results Test Description Test Time Test Comments Text Results Atomic Results Result Comments CT BRAIN WO [place] [address] Patient Name: JHOAN DE LA GARZA MR #: [id number] : 1935 Age/Sex: 82/F Req #: [id number] Adm Physician: Ordered by: CATHY MCBRIDE MD Report #: [id number] Location: ER Room/Bed: Procedure: [id number] CT/CT BRAIN WO Exam Date: 05/22/17 Exam Time: 0745 REPORT STATUS: Signed Exam: Head CT without contrast History: Hypertension, frontal headache Comparison studies: None Technique: Axial images were obtained from the skull base to the vertex. Coronal and sagittal images reconstructed from the axial data. Intravenous contrast: None Findings: Scalp: No abnormalities. Bones: No fractures, blastic or lytic lesions. Brain sulci: Appropriate for age. Ventricles: Normal in size and configuration. No hydrocephalus. Extra- axial spaces: No masses, no fluid collection. Parenchyma: No mass, acute hemorrhage or acute or chronic cortical vascular insult. Confluent hypodensities throughout the supratentorial white matter are nonspecific but most likely reflect small vessel ischemic changes Sellar/suprasellar region: No abnormalities. Craniocervical junction: Patent foramen magnum. No Chiari one malformation. Incidental findings: Atherosclerotic calcifications in the carotid siphons and intradural vertebral arteries. Bilateral lens replacements related to previous cataract surgery. IMPRESSION: 1. No mass, acute hemorrhage or acute cortical vascular insults. 2. Nonspecific confluent hypodensities in the supratentorial white matter are most compatible with severe chronic microvascular ischemic changes. Signed by: Dr. Seble Steele M.D. on 05/22/2017 8:19 AM Dictated By: SEBLE STEELE MD 8 Transcribed By: MCKENZIE on 05/22/17818 COPY TO: CATHY MCBRIDE MD CHEST 2 VIEWS [place] [address] Patient Name: JHOAN DE LA GARZA MR #: [id number] : 1935 Age/Sex: 82/F Req #: [id number] Adm Physician: Ordered by: CATHY MCBRIDE MD Report #: [id number] Location: Room/Bed: Procedure: [id number] DX/CHEST 2 VIEWS Exam Date: 05/22/17 Exam Time: 0800 REPORT STATUS: Signed EXAMINATION: CHEST 2 VIEWS INDICATION: COMPARISON: Chest radiograph 03/25/2013 FINDINGS: PA and lateral views TUBES and LINES: None. LUNGS: Lungs are well inflated. Lungs are clear. There is no evidence of pneumonia or pulmonary edema. PLEURA: No pleural effusion or pneumothorax. HEART AND MEDIASTINUM: The cardiomediastinal silhouette is unremarkable. Tortuous aorta. BONES AND SOFT TISSUES: No acute osseous lesion. Degenerative changes of the spine. Soft tissues are unremarkable. UPPER ABDOMEN: No free air under the diaphragm. IMPRESSION: No acute thoracic abnormality. Signed by: DR. Ever Jimenez MD on 05/22/2017 8:28 AM Dictated By: EVER JIMENEZ MD 7 Transcribed By: MCKENZIE on 05/22/17827 COPY TO: CATHY MCBRIDE MD
[2018-06-08] MEDS ORDERED: HYDRALAZINE HCL 20 MG/ML VIAL IV ONE (10:45)
[2018-06-08 11:05] LABS: BASOPHILS # (AUTO) 0.1 (0.0-0.1); BASOPHILS % 0.7 % (0.0-1.0); EOSINOPHILS # (AUTO) 0.4 (0.0-0.4); EOSINOPHILS % 4.7 % (0.0-6.0); HEMATOCRIT 33.9 % (34.2-44.1); HEMOGLOBIN 10.8 g/dL (12.0-16.0); LYMPHOCYTES # (AUTO) 2.2 (1.0-3.2); LYMPHOCYTES % 26.3 % (18.0-39.1); MEAN CORPUSCULAR HEMOGLOBIN 27.1 pg (28-32); MEAN CORPUSCULAR HGB CONC 31.9 g/dL (31-35); MEAN CORPUSCULAR VOLUME 85.2 fL (81-99); MONOCYTES # (AUTO) 0.5 (0.2-0.8); MONOCYTES % 6.3 % (4.4-11.3); NEUTROPHILS # (AUTO) 5.2 (2.1-6.9); NEUTROPHILS % 61.9 % (38.7-80.0); PLATELET COUNT 190 x10e3/uL (140-360); RED BLOOD COUNT 3.98 x10e6/uL (3.6-5.1); RED CELL DISTRIBUTION WIDTH 15.1 % (11.7-14.4)
[2018-06-08] MEDS ORDERED: ENALAPRILAT IV INJ 1.25 MG/ML VIAL IV STA (11:15)
[2018-06-08 11:27] LABS: ALANINE AMINOTRANSFERASE 18 IU/L (0-55); ALBUMIN 3.6 g/dL (3.5-5.0); ALBUMIN/GLOBULIN RATIO 1.1 (0.8-2.0); ALKALINE PHOSPHATASE 54 IU/L (40-150); ANION GAP 13.1 mmol/L (8-16); BLOOD UREA NITROGEN 14 mg/dL (7-26); BUN/CREATININE RATIO 17 (6-25); CALCIUM 10.1 mg/dL (8.4-10.2); CARBON DIOXIDE 25 mmol/L (22-29); CHLORIDE 104 mmol/L (98-107); CREATININE, SERUM 0.84 mg/dL (0.57-1.11); EST GLOMERULAR FILTRATION RATE > 60 ML/MIN (60-); GLUCOSE 103 mg/dL (74-118); POTASSIUM 3.1 mmol/L (3.5-5.1); SODIUM 139 mmol/L (136-145)
[2018-06-08] MEDS ORDERED: ACETAMINOPHEN 325 MG TAB PO ONE (12:00)
--- NOTE | 2018-06-08 12:54 | Diagnostic Imaging Report ---
History:Head pain Comparison studies:CT head 05/22/2017 Technique: Axial images were obtained from the skull base to the vertex. Coronal and sagittal images reconstructed from the axial data. Intravenous contrast: None Dose modulation, iterative reconstruction, and/or weight based adjustment of the mA/kV was utilized to reduce the radiation dose to as low as reasonably achievable. Findings: Scalp/skull: No abnormalities. Extra-axial spaces: No masses. No fluid collections. Brain sulci: Age-appropriate. Ventricles: Age-appropriate. No hydrocephalus. Parenchyma: Confluent hypodensities in the supratentorial white matter are nonspecific and most commonly seen with small vessel ischemic changes. No masses, hemorrhage, acute or chronic cortical vascular insults. Sellar/suprasellar region: No abnormalities. Craniocervical junction: Patent foramen magnum. No Chiari one malformation. Incidental findings: Atherosclerotic calcifications in the carotid siphons and vertebral lateral . Impression: No acute abnormalities. Chronic findings: 1. Severe supratentorial white matter small vessel ischemic changes. Age-appropriate volume loss Signed by: DR Jagdeep Patterson M.D. on 06/08/2018 12:51 PM
[2018-06-08 13:03] LABS: BILIRUBIN,URINE NEGATIVE (NEGATIVE); CLARITY,URINE SL CLOUDY (CLEAR); COLOR,URINE YELLOW (YELLOW); KETONES,URINE NEGATIVE (NEGATIVE); LEUKOCYTE ESTERASE ,URINE NEGATIVE (NEGATIVE); NITRITE,URINE NEGATIVE (NEGATIVE); PROTEIN,URINE DIPSTICK 2+ (NEGATIVE); URINE UROBILINOGEN 0.2 mg/dL (0.2 - 1)
[2018-06-08 13:22] LABS: BACTERIA,URINE MANY /HPF; EPITHELIAL CELLS,URINE FEW /LPF
[2018-06-08] MEDS ORDERED: SODIUM CHLORIDE 0.9% 1000ML 2,000 ML IV SCH (14:00)
[2018-06-08] MEDS ORDERED: SODIUM CHLORIDE FLUSH 10 ML SYR INJ PRN (14:30)
[2018-06-08] MEDS: NICARDIPINE 20MG/200ML PREMIX 200 ML IV SCH ×3 (15:28→22:50)
[2018-06-08] MEDS ORDERED: HYDRALAZINE HCL25 MG PO (17:03)
[2018-06-08] MEDS ORDERED: BYSTOLIC10 MG PO (17:04)
[2018-06-08] MEDS ORDERED: salonpas TOP (17:05)
--- NOTE | 2018-06-08 17:14 | Diagnostic Imaging Report ---
EXAMINATION: Renal Doppler ultrasound. CLINICAL HISTORY :Malignant hypertension, evaluate for renal artery stenosis. COMPARISON: <None available.> TECHNIQUE: Grayscale and color Doppler evaluation of the kidneys and bladder was performed in transverse and longitudinal planes. Doppler interrogation of the main, segmental and arcuate renal arteries bilaterally as well as evaluation of the aorta were performed. DISCUSSION: Exam limited by overlying bowel gas. The bilateral renal artery ostium and left main renal artery proximally are not visualized due to overlying bowel gas. RIGHT KIDNEY: The right kidney measures 8.3 cm in length and shows normal echogenicity. The right renal cortex measures 1.6 cm. No hydronephrosis, shadowing calculi or solid mass lesions. The right main renal artery ostium and proximal renal artery could not be visualized due to overlying bowel gas. Right main renal artery PSV is 116.4 cm/s. Highest right segmental artery PSV is 22.6 cm/sec. Arterial waveforms are unremarkable. The right renal artery PSV/aortic PSV ratio is 1.4. LEFT KIDNEY: The left kidney measures 10.3 cm in length and shows normal echogenicity. The left renal cortex measures 1.6 cm. No hydronephrosis, shadowing calculi or solid mass lesions. The left main renal artery ostium and proximal main renal artery could not be visualized due to overlying bowel gas. Left main renal artery PSV is 61.2 cm/sec. Highest left segmental artery PSV is 54.3 cm/sec. Arterial waveforms are unremarkable. The left renal artery PSV/aortic PSV ratio is 0.7. Abdominal aortic PSV is 84.4 cm/sec. BLADDER: Unremarkable. IMPRESSION: Exam limited by overlying bowel gas and inability to visualize bilateral renal artery ostia and the proximal left main renal artery. No specific sonographic evidence of renal artery stenosis. Signed by: Dr. Mason Chicas MD on 06/08/2018 5:11 PM
[2018-06-08] MEDS: PREGABALIN 50 MG CAP PO SCH ×2 (17:47→22:30)
[2018-06-08] MEDS: LIDOCAINE 5% PATCH TP SCH (17:47)
[2018-06-08] MEDS: ACETAMINOPHEN 325 MG TAB PO PRN (23:05)
[2018-06-09] VITALS (91 sets, daily range): BP systolic 97–186; BP diastolic 61–108
[2018-06-09 00:16] LABS: ANION GAP 13.9 mmol/L (8-16); BLOOD UREA NITROGEN 14 mg/dL (7-26); BUN/CREATININE RATIO 18 (6-25); CALCIUM 9.9 mg/dL (8.4-10.2); CARBON DIOXIDE 22 mmol/L (22-29); CHLORIDE 102 mmol/L (98-107); CREATININE, SERUM 0.77 mg/dL (0.57-1.11); EST GLOMERULAR FILTRATION RATE > 60 ML/MIN (60-); GLUCOSE 92 mg/dL (74-118); SODIUM 135 mmol/L (136-145)
[2018-06-09 00:22] LABS: POTASSIUM 2.9 mmol/L (3.5-5.1)
[2018-06-09 00:33] LABS: CREATINE KINASE 118 IU/L (29-168)
[2018-06-09] MEDS ORDERED: POTASSIUM CHLORIDE 20MEQ/100ML 200 ML IV ONE (01:15)
[2018-06-09] MEDS: RIVAROXABAN 20 MG TABLET PO SCH ×2 (01:15→16:43)
[2018-06-09] MEDS: PREGABALIN 50 MG CAP PO SCH ×3 (06:20→21:49)
[2018-06-09] MEDS: ONDANSETRON HCL INJ 2 MG/ML VIAL IV PRN ×2 (06:46→23:49)
[2018-06-09] MEDS: NICARDIPINE 20MG/200ML PREMIX 200 ML IV SCH ×3 (06:47→22:16)
[2018-06-09 07:06] LABS: BASOPHILS % 0.4 % (0.0-1.0); EOSINOPHILS # (AUTO) 0.2 (0.0-0.4); EOSINOPHILS % 2.5 % (0.0-6.0); HEMATOCRIT 33.8 % (34.2-44.1); HEMOGLOBIN 10.9 g/dL (12.0-16.0); LYMPHOCYTES # (AUTO) 2.4 (1.0-3.2); LYMPHOCYTES % 26.2 % (18.0-39.1); MEAN CORPUSCULAR HGB CONC 32.2 g/dL (31-35); MEAN CORPUSCULAR VOLUME 83.7 fL (81-99); MONOCYTES # (AUTO) 0.7 (0.2-0.8); MONOCYTES % 7.1 % (4.4-11.3); NEUTROPHILS # (AUTO) 5.8 (2.1-6.9); NEUTROPHILS % 63.6 % (38.7-80.0); PLATELET COUNT 191 x10e3/uL (140-360); RED BLOOD COUNT 4.04 x10e6/uL (3.6-5.1); RED CELL DISTRIBUTION WIDTH 15.4 % (11.7-14.4)
[2018-06-09 07:20] LABS: ANION GAP 14.7 mmol/L (8-16); BLOOD UREA NITROGEN 12 mg/dL (7-26); BUN/CREATININE RATIO 14 (6-25); CALCIUM 9.8 mg/dL (8.4-10.2); CARBON DIOXIDE 23 mmol/L (22-29); CHLORIDE 105 mmol/L (98-107); CREATININE, SERUM 0.83 mg/dL (0.57-1.11); EST GLOMERULAR FILTRATION RATE > 60 ML/MIN (60-); GLUCOSE 120 mg/dL (74-118); POTASSIUM 3.7 mmol/L (3.5-5.1); SODIUM 139 mmol/L (136-145)
[2018-06-09 07:43] LABS: PHOSPHORUS 2.1 MG/DL (2.3-4.7)
[2018-06-09] MEDS: LIDOCAINE 5% PATCH TP SCH (08:59)
[2018-06-09] MEDS: AMIODARONE HCL 200 MG TAB PO SCH ×2 (12:10→16:43)
[2018-06-09] MEDS ORDERED: TRAMADOL/APAP 37.5MG-325MG TAB PO PRN (17:15)
[2018-06-09] MEDS: GABAPENTIN 100 MG CAP PO SCH (21:49)
[2018-06-10] VITALS (74 sets, daily range): BP systolic 118–200; BP diastolic 66–111
--- NOTE | 2018-06-10 01:35 | History and Physical ---
DATE OF SERVICE: 06/09/2018 at 4:00 p.m. PRIMARY CARE PHYSICIAN: Dr. Castro INSPECTOR SALVAGE: Dr. James Cordero CHIEF COMPLAINT: Uncontrolled blood pressure. HISTORY OF PRESENT ILLNESS: This is an 83-year-old woman with a history hypertension, which has been resistant to medical treatment for sometime now, went to property management bookkeeper for routine followup, when blood pressure was found to be 255/115. Patient sent to the hospital. She denies any headache or shortness of breath or chest pain. May have some mild dizziness. Initial blood pressure recorded was 235/93, started on nicardipine drip and admitted to the ICU for management. PAST MEDICAL HISTORY: Uncontrolled hypertension, coronary artery disease, status post stent in 2001, cardiac arrhythmia type unknown, hypertension. PAST SURGICAL HISTORY: Coronary stent placement, back surgery, knee surgery in 2005, hysterectomy. ALLERGIES: PER ELECTRONIC MEDICAL RECORD. FAMILY HISTORY/SOCIAL HISTORY: Patient is . She has 8 children. No alcohol, illicits or cigarettes. MEDICATIONS: Per electronic medical record. REVIEW OF SYSTEMS: Denies any chest pain, shortness of breath, vision changes, hematuria, headache, back pain or leg pain. PHYSICAL EXAMINATION VITAL SIGNS: Reviewed. GENERAL APPEARANCE: Tired-appearing woman resting in bed. HEENT: Anicteric. CARDIOVASCULAR: Normal S1 and S2. LUNGS: She has moderate breath sounds. ABDOMEN: Soft, nontender, nondistended. EXTREMITIES: No edema or calf tenderness. NEUROLOGIC: Alert, oriented x3, moves extremities. SKIN: Dry. PSYCHIATRIC: Flat affect. LABS: Reviewed. MEDICATIONS: Reviewed. ASSESSMENT AND PLAN: An 83-year-old woman. 1. Malignant hypertension. 2. Hypokalemia. 3. Asymptomatic bacteruria. 4. Paroxysmal atrial fibrillation. 5. Overweight state. 6. Normocytic anemia. 7. Hypophosphatemia. 8. Coronary artery disease with history of stent. 9. Chronic lumbago without sciatica. PLAN 1. Continue on nicardipine drip and start antihypertensive medication per cardiology. 2. Continue amiodarone for treatment of atrial fibrillation, also continue Xarelto. 3. For chronic back pain, will use gabapentin, lidocaine patches, and Ultracet. 4. Use Pepcid while patient is on anticoagulation. DISPOSITION: Monitor closely in the ICU. CRITICAL CARE TIME: More than 35 minutes. Job#: [id number] CQ
--- NOTE | 2018-06-10 03:05 | Consultation ---
DATE OF CONSULTATION: HISTORY OF PRESENT ILLNESS: This 83-year-old patient was kindly referred for cardiovascular evaluation. The patient is a patient of Dr. Garcia whom I am covering for while he is out of town. The patient presented to the hospital because of uncontrolled hypertension despite multiple antihypertensive medications. The patient states that her blood pressure has been elevated for several weeks and she was hospitalized the end of April with chest pain, TIAs and accelerated hypertension. After seeing the patient and evaluating the patient, also became aware of the patient's hospitalization at the end of April where the patient had some abnormal nuclear stress test showing some inferior ischemia and the patient underwent cardiac catheterization by Dr. Garcia at [facility] which only showed some mild coronary artery disease, but patent coronary stents and normal left ventricular function. He also did an abdominal aortogram which did not show any renal artery stenosis. After the patient was hospitalized, she also developed atrial fibrillation with controlled ventricular rate since the patient had been on 2 beta blockers, metoprolol and Bystolic, keeping heart rate between 58 at 100. However, she also had a run of nonsustained ventricular tachycardia and premature ventricular contractions which, however, the patient is unaware of and she was asymptomatic during these episodes. The patient is also complaining of weakness, numbness, tingling in her legs, was told to have peripheral neuropathy and she uses walker to prevent from losing her balance. The patient had previous lumbar laminectomy. She also had right knee replacement. ALLERGIES: CODEINE. SOCIAL HISTORY: Negative. FAMILY HISTORY: Noncontributory. REVIEW OF SYSTEMS: Remainder of systems review reveal the patient denies any headache, nausea. She denies any vision disturbances. Patient denies any chest pain or shortness of breath. Patient denies any abdominal pain. The patient does have some weakness in her legs and numbness as described before. PHYSICAL EXAMINATION: VITAL SIGNS: Blood pressure 145/65. Rhythm is regular with frequent premature atrial contractions, single and runs and occasional premature ventricular contractions. The patient is still on Cardene drip to control her hypertension. CHEST: Clear to auscultation. CARDIOVASCULAR: Normal apical impulse. The rhythm is regular. First and 2nd are normal. There is no S3. There is no rub. ABDOMEN: Soft. There is no tenderness or organomegaly. EXTREMITIES: With palpable popliteal pulses. Posterior tibial pulse on the left is 1+. Dorsalis pedis pulse could not be palpated. Pedal pulses could not be palpated on the right leg. There is 1 to 2+ ankle edema bilaterally. NEUROLOGIC: Does not reveal any motor defect. LABORATORY DATA: Showed some hypokalemia which has been corrected. She also shows some mild anemia. IMPRESSION: 1. Malignant hypertension with hypertensive crisis. 2. Paroxysmal atrial fibrillation. 3. Nonsustained ventricular tachycardia. 4. Coronary artery disease with patent stents on the right coronary artery and obtuse marginal branch as seen on the recent cardiac catheterization by Dr. Garcia. 5. Peripheral arterial disease. 6. Peripheral neuropathy. 7. Anemia. PLAN: At the moment, however, they agree to continue the patient's Cardene drip to maintain normal blood pressure and start the patient on amiodarone 200 mg twice daily to control her atrial fibrillation as well as ventricular dysrhythmia. Echocardiogram has been ordered and I will review the study. I did recommend also nuclear stress test; however, the patient had nuclear stress test performed on the 29 of April and since she does not have any chest pain, I will cancel the test and just concentrate on treating the patient's hypertension and arrhythmia until Dr. Garcia will be returning and taking over for the patient's cardiac care. Thank you very much for letting us see this very nice patient. Job#: [id number] FLORA
[2018-06-10 05:00] LABS: BASOPHILS % 0.4 % (0.0-1.0); EOSINOPHILS # (AUTO) 0.1 (0.0-0.4); EOSINOPHILS % 0.9 % (0.0-6.0); HEMOGLOBIN 11.3 g/dL (12.0-16.0); LYMPHOCYTES # (AUTO) 1.9 (1.0-3.2); LYMPHOCYTES % 17.6 % (18.0-39.1); MEAN CORPUSCULAR HGB CONC 32.3 g/dL (31-35); MEAN CORPUSCULAR VOLUME 83.7 fL (81-99); MONOCYTES # (AUTO) 0.7 (0.2-0.8); MONOCYTES % 6.3 % (4.4-11.3); NEUTROPHILS # (AUTO) 7.9 (2.1-6.9); NEUTROPHILS % 74.4 % (38.7-80.0); PLATELET COUNT 204 x10e3/uL (140-360); RED BLOOD COUNT 4.18 x10e6/uL (3.6-5.1); RED CELL DISTRIBUTION WIDTH 15.5 % (11.7-14.4)
[2018-06-10 05:19] LABS: ANION GAP 15.5 mmol/L (8-16); BLOOD UREA NITROGEN 13 mg/dL (7-26); BUN/CREATININE RATIO 15 (6-25); CALCIUM 10.3 mg/dL (8.4-10.2); CARBON DIOXIDE 23 mmol/L (22-29); CHLORIDE 104 mmol/L (98-107); CREATININE, SERUM 0.85 mg/dL (0.57-1.11); EST GLOMERULAR FILTRATION RATE > 60 ML/MIN (60-); GLUCOSE 155 mg/dL (74-118); POTASSIUM 3.5 mmol/L (3.5-5.1); SODIUM 139 mmol/L (136-145)
[2018-06-10] MEDS: ONDANSETRON HCL INJ 2 MG/ML VIAL IV PRN (05:35)
[2018-06-10] MEDS: PREGABALIN 50 MG CAP PO SCH ×3 (05:36→21:00)
[2018-06-10] MEDS: GABAPENTIN 100 MG CAP PO SCH ×3 (05:36→21:00)
[2018-06-10 05:46] LABS: PHOSPHORUS 2.1 MG/DL (2.3-4.7)
[2018-06-10] MEDS: NICARDIPINE 20MG/200ML PREMIX 200 ML IV SCH ×4 (07:45→21:05)
[2018-06-10] MEDS: FAMOTIDINE 20 MG TAB PO SCH ×2 (08:20→17:00)
[2018-06-10] MEDS: AMIODARONE HCL 200 MG TAB PO SCH ×2 (08:39→17:00)
[2018-06-10] MEDS ORDERED: METOPROLOL TARTRATE 25 MG TAB ONE (08:45)
[2018-06-10] MEDS ORDERED: POTASSIUM PHOSPHATE 20 MM in SODIUM CHLORIDE 0.9% 250ML 250 ML IV ONE (09:00)
[2018-06-10] MEDS ORDERED: AMLODIPINE BESYLATE 10 MG TAB PO SCH (09:00)
[2018-06-10] MEDS ORDERED: HYDRALAZINE HCL 25 MG TAB PO SCH (09:00)
[2018-06-10] MEDS: METOPROLOL TARTRATE 50 MG TAB PO SCH ×2 (09:00→21:00)
[2018-06-10] MEDS: LIDOCAINE 5% PATCH TP SCH (09:00)
[2018-06-10] MEDS ORDERED: METOPROLOL TARTRATE 25 MG TAB PO SCH (09:00)
[2018-06-10] MEDS: HYDRALAZINE HCL 25 MG TAB PO SCH ×2 (12:00→17:00)
[2018-06-10] MEDS: RIVAROXABAN 20 MG TABLET PO SCH (17:00)
[2018-06-10] MEDS: OLMESARTAN 20 MG TAB PO SCH (21:00)
[2018-06-11] VITALS (76 sets, daily range): BP systolic 104–197; BP diastolic 61–113
[2018-06-11] MEDS: HYDRALAZINE HCL 25 MG TAB PO SCH ×5 (01:00→16:36)
[2018-06-11] MEDS: NICARDIPINE 20MG/200ML PREMIX 200 ML IV SCH ×4 (02:00→08:33)
[2018-06-11 05:27] LABS: BASOPHILS # (AUTO) 0.1 (0.0-0.1); BASOPHILS % 0.5 % (0.0-1.0); EOSINOPHILS # (AUTO) 0.3 (0.0-0.4); EOSINOPHILS % 2.6 % (0.0-6.0); HEMATOCRIT 32.8 % (34.2-44.1); HEMOGLOBIN 10.6 g/dL (12.0-16.0); LYMPHOCYTES # (AUTO) 2.3 (1.0-3.2); MEAN CORPUSCULAR HEMOGLOBIN 27.2 pg (28-32); MEAN CORPUSCULAR HGB CONC 32.3 g/dL (31-35); MEAN CORPUSCULAR VOLUME 84.3 fL (81-99); MONOCYTES # (AUTO) 0.9 (0.2-0.8); MONOCYTES % 7.8 % (4.4-11.3); NEUTROPHILS # (AUTO) 8.4 (2.1-6.9); NEUTROPHILS % 69.7 % (38.7-80.0); PLATELET COUNT 228 x10e3/uL (140-360); RED BLOOD COUNT 3.89 x10e6/uL (3.6-5.1); RED CELL DISTRIBUTION WIDTH 15.7 % (11.7-14.4)
[2018-06-11] MEDS: GABAPENTIN 100 MG CAP PO SCH ×3 (05:40→21:26)
[2018-06-11] MEDS: PREGABALIN 50 MG CAP PO SCH ×3 (05:40→21:26)
[2018-06-11 05:52] LABS: ANION GAP 15.2 mmol/L (8-16); BLOOD UREA NITROGEN 17 mg/dL (7-26); BUN/CREATININE RATIO 20 (6-25); CARBON DIOXIDE 23 mmol/L (22-29); CHLORIDE 104 mmol/L (98-107); CREATININE, SERUM 0.85 mg/dL (0.57-1.11); EST GLOMERULAR FILTRATION RATE > 60 ML/MIN (60-); GLUCOSE 136 mg/dL (74-118); POTASSIUM 4.2 mmol/L (3.5-5.1); SODIUM 138 mmol/L (136-145)
[2018-06-11 06:36] LABS: MAGNESIUM 2.1 MG/DL (1.3-2.1); PHOSPHORUS 2.5 MG/DL (2.3-4.7)
[2018-06-11] MEDS: LIDOCAINE 5% PATCH TP SCH (08:32)
[2018-06-11] MEDS: FAMOTIDINE 20 MG TAB PO SCH ×2 (08:32→16:36)
[2018-06-11] MEDS: AMIODARONE HCL 200 MG TAB PO SCH ×2 (08:32→16:36)
[2018-06-11] MEDS: METOPROLOL TARTRATE 50 MG TAB PO SCH ×2 (08:32→20:30)
[2018-06-11] MEDS: OLMESARTAN 20 MG TAB PO SCH (08:32)
--- NOTE | 2018-06-11 13:03 | Diagnostic Imaging Report ---
History: Neuropathy, spinal canal stenosis. Comparison studies: None Technique: Axial images were obtained from superior T11 through the sacrum. Coronal and sagittal images reconstructed from the axial data. Dose modulation, iterative reconstruction, and/or weight based adjustment of the mA/kV was utilized to reduce the radiation dose to as low as reasonably achievable. Intravenous contrast: None Findings: Number of non-rib bearing vertebral bodies: 5 Alignment: Normal lordosis. Mild right curvature centered at L4. 3 mm (grade 1) isthmic anterolisthesis of L5 on S1. No scoliosis. Soft tissues: Scattered atherosclerotic calcifications in the aorta and iliac arteries. Incidental sigmoid diverticulosis. Paraspinal muscles: Fatty infiltrated from L2 through S1. Vertebrae: No fractures, infection or neoplasm. Degenerative changes: L1-L2: Moderately degenerated disc on the right due to the curvature. Moderate right foraminal stenosis due to endplate osteophytes and facet arthrosis. Mild spinal canal stenosis due to a superimposed disc bulge. Patent left foramen. L2-L3: Moderately degenerated disc, worse on the left is related to the curvature. Foraminal stenosis is mild right, severe left due to endplate osteophytes and facet arthrosis. Mild superimposed spinal canal stenosis due to a left asymmetric disc bulge. L3-L4: Moderately degenerated disc, worse on the left due to the curvature. Foraminal stenosis, mild right and severe left due to endplate osteophytes and facet arthrosis. Mild spinal canal stenosis due to a disc bulge and buckled calcified ligamenta flava L4-L5: Minimally degenerated disc. Patent spinal canal and foramina in spite of a disc bulge and severe facet arthrosis. Old midline laminectomy defects are present. L5-S1: Mildly degenerated disc. Foraminal stenosis, severe right, moderate left is due to an asymmetric disc bulge, endplate osteophytes, severe facet arthrosis. Grade 1 (3 mm) anterolisthesis of L5 on S1, due to defects in the pars of L5, contribute to the foraminal stenosis. Sacroiliac joints: Mildly degenerated bilaterally. IMPRESSION: 1. Mild right curvature centered at L4. 2. Degenerated discs from L1 -S1, worst right at L1-2, left at L2-3 and L3-4 relate to the curvature. 3. Facet arthrosis throughout the lumbar region is worse at L4-5 and L5-S1. 4. Degenerative foraminal stenosis from L1 through L5 is worse on the right and L1-L2, left at L2-3 and L3-4 and bilaterally at L5-S1. Superimposed grade 1 isthmic anterolisthesis of L5 on S1 contributes to the foraminal stenosis at L5-S1. 5. Spinal canal stenosis is mild at L2-3 and at L3-4. The canal has been decompressed at L4-5 throughout previous midline laminectomy. 6. No disc herniation Signed by: Dr. Reji Sarmiento M.D. on 06/11/2018 1:00 PM
[2018-06-11] MEDS: RIVAROXABAN 20 MG TABLET PO SCH (16:36)
[2018-06-11] MEDS: SENNOSIDES 8.6 MG TAB PO SCH ×2 (16:36→16:37)
[2018-06-11] MEDS: DOCUSATE SODIUM LIQD 100 MG/10 ML UDC NG SCH ×2 (16:36→16:37)
[2018-06-12] VITALS (49 sets, daily range): BP systolic 94–210; BP diastolic 52–110
[2018-06-12] MEDS: HYDRALAZINE HCL 25 MG TAB PO SCH ×5 (00:37→23:40)
[2018-06-12 05:00] LABS: BASOPHILS # (AUTO) 0.1 (0.0-0.1); BASOPHILS % 0.7 % (0.0-1.0); EOSINOPHILS # (AUTO) 0.4 (0.0-0.4); EOSINOPHILS % 3.8 % (0.0-6.0); HEMATOCRIT 37.3 % (34.2-44.1); HEMOGLOBIN 11.7 g/dL (12.0-16.0); LYMPHOCYTES # (AUTO) 2.4 (1.0-3.2); LYMPHOCYTES % 23.3 % (18.0-39.1); MEAN CORPUSCULAR HEMOGLOBIN 26.6 pg (28-32); MEAN CORPUSCULAR HGB CONC 31.4 g/dL (31-35); MEAN CORPUSCULAR VOLUME 84.8 fL (81-99); MONOCYTES # (AUTO) 0.8 (0.2-0.8); MONOCYTES % 7.9 % (4.4-11.3); NEUTROPHILS # (AUTO) 6.7 (2.1-6.9); PLATELET COUNT 250 x10e3/uL (140-360); RED CELL DISTRIBUTION WIDTH 15.6 % (11.7-14.4)
[2018-06-12 05:19] LABS: ANION GAP 14.9 mmol/L (8-16); BLOOD UREA NITROGEN 16 mg/dL (7-26); BUN/CREATININE RATIO 21 (6-25); CALCIUM 10.5 mg/dL (8.4-10.2); CARBON DIOXIDE 24 mmol/L (22-29); CHLORIDE 102 mmol/L (98-107); CREATININE, SERUM 0.78 mg/dL (0.57-1.11); EST GLOMERULAR FILTRATION RATE > 60 ML/MIN (60-); GLUCOSE 108 mg/dL (74-118); POTASSIUM 3.9 mmol/L (3.5-5.1); SODIUM 137 mmol/L (136-145)
[2018-06-12] MEDS: GABAPENTIN 100 MG CAP PO SCH ×3 (05:38→21:49)
[2018-06-12] MEDS: PREGABALIN 50 MG CAP PO SCH ×3 (05:38→21:49)
[2018-06-12] MEDS: MINOXIDIL 2.5 MG TAB PO SCH ×5 (05:39→20:11)
[2018-06-12] MEDS: FAMOTIDINE 20 MG TAB PO SCH ×2 (08:53→17:41)
[2018-06-12] MEDS: OLMESARTAN 20 MG TAB PO SCH (08:54)
[2018-06-12] MEDS: LIDOCAINE 5% PATCH TP SCH (08:54)
[2018-06-12] MEDS: SENNOSIDES 8.6 MG TAB PO SCH ×2 (08:54→17:41)
[2018-06-12] MEDS: AMIODARONE HCL 200 MG TAB PO SCH ×2 (08:54→17:41)
[2018-06-12] MEDS: METOPROLOL TARTRATE 50 MG TAB PO SCH ×2 (08:54→21:00)
[2018-06-12] MEDS: DOCUSATE SODIUM 100 MG CAP PO SCH ×2 (11:35→17:41)
--- NOTE | 2018-06-12 13:10 | Progress Note ---
DATE: CARDIOLOGY PROGRESS NOTE Patient is in room 195. At this time, patient admitted with severe hypertension and some mild headaches and patient got significant issues including coronary artery disease, status post placement of the coronary artery stents and hypertension, significant arthritis, and headaches. At this time, patient is taken care by Dr. Bhavesh Alfaro, under whom is admitted , already seen the patient, , and took care of the patient at this time. Patient's vital signs show blood pressure is about 190/98 mmHg and heart rate is about 80 per minute. Patient at this time on multiple medications, please refer to the admission reconciliation medication and also new medications. Patient underwent brain scan, was found to be normal. Lumbar spine showed significant evidence of arthritis and patient also seeing some orthopedic doctor outside the hospital. At this time, there is no evidence of any renal artery stenosis. On abdominal aortogram in the past, renal arteries are normal. At this time, mainly she is admitted for blood pressure control, for which she will continue present medications. Patient does not have any myocardial infarction. Patient is stable at this time. Job#: [id number] RIAN KING
[2018-06-12] MEDS: NICARDIPINE 20MG/200ML PREMIX 200 ML IV SCH (14:15)
[2018-06-12] MEDS: RIVAROXABAN 20 MG TABLET PO SCH (17:41)
[2018-06-13] VITALS (34 sets, daily range): BP systolic 86–157; BP diastolic 49–99
[2018-06-13 04:41] LABS: BASOPHILS # (AUTO) 0.1 (0.0-0.1); BASOPHILS % 0.7 % (0.0-1.0); EOSINOPHILS # (AUTO) 0.4 (0.0-0.4); EOSINOPHILS % 3.9 % (0.0-6.0); HEMATOCRIT 35.8 % (34.2-44.1); HEMOGLOBIN 11.4 g/dL (12.0-16.0); LYMPHOCYTES # (AUTO) 2.7 (1.0-3.2); LYMPHOCYTES % 25.4 % (18.0-39.1); MEAN CORPUSCULAR HEMOGLOBIN 27.1 pg (28-32); MEAN CORPUSCULAR HGB CONC 31.8 g/dL (31-35); MEAN CORPUSCULAR VOLUME 85.2 fL (81-99); MONOCYTES % 9.6 % (4.4-11.3); NEUTROPHILS # (AUTO) 6.5 (2.1-6.9); PLATELET COUNT 228 x10e3/uL (140-360); RED CELL DISTRIBUTION WIDTH 15.7 % (11.7-14.4)
[2018-06-13 05:04] LABS: CALCIUM 10.3 mg/dL (8.4-10.2); MAGNESIUM 2.1 MG/DL (1.3-2.1)
[2018-06-13 05:17] LABS: CREATININE, SERUM 2.23 mg/dL (0.57-1.11)
[2018-06-13] MEDS: HYDRALAZINE HCL 25 MG TAB PO SCH (06:00)
[2018-06-13] MEDS: GABAPENTIN 100 MG CAP PO SCH ×3 (06:00→22:00)
[2018-06-13] MEDS: PREGABALIN 50 MG CAP PO SCH ×3 (06:00→22:00)
[2018-06-13] MEDS: SODIUM CHLORIDE 0.9% 1000ML 1,000 ML IV SCH (06:27)
[2018-06-13] MEDS ORDERED: SODIUM CHLORIDE 0.9% 1000ML 1,000 ML ONE (06:28)
[2018-06-13] MEDS: FAMOTIDINE 20 MG TAB PO SCH ×2 (09:33→17:45)
[2018-06-13] MEDS: AMIODARONE HCL 200 MG TAB PO SCH ×2 (09:35→17:45)
[2018-06-13] MEDS: DOCUSATE SODIUM 100 MG CAP PO SCH ×2 (09:35→17:45)
[2018-06-13] MEDS: SENNOSIDES 8.6 MG TAB PO SCH ×2 (09:36→17:46)
[2018-06-13] MEDS: LIDOCAINE 5% PATCH TP SCH (09:36)
[2018-06-13] MEDS: METOPROLOL TARTRATE 50 MG TAB PO SCH ×2 (09:37→21:00)
--- NOTE | 2018-06-13 10:25 | Progress Note ---
DATE: June 13, 2018 CARDIOLOGY PROGRESS NOTE Patient is seen in ICU bed 1. Patient is awake and alert. Patient's blood pressure is about 140/90, and the patient is feeling better. Does not have any chest pain. BNP is around 1600. She used to have this in the past also, but she is not in acute congestive heart failure. Patient's systemic hypertension is getting controlled. I believe she is going for physical therapy rehabilitation. I think it is better if she starts inpatient, and is better for when she goes home. Maybe we will be able to manage her better. Continue all her present medications. Patient is able to eat breakfast also. No evidence of acute CHF at this time. DIAGNOSES 1. Severe hypertension. 2. Malignant hypertension. 3. Coronary artery disease. 4. Some anxiety state. 5. Arthritis and some back issues. Job#: [id number] ROSALIA
[2018-06-13] MEDS: OLMESARTAN 20 MG TAB PO SCH (11:02)
[2018-06-13] MEDS: HYDRALAZINE HCL 100 MG TABLET PO SCH ×2 (11:02→17:46)
[2018-06-13] MEDS: MINOXIDIL 2.5 MG TAB PO SCH ×2 (11:28→21:00)
[2018-06-13 16:09] LABS: ANION GAP 14.1 mmol/L (8-16); CALCIUM 8.3 mg/dL (8.4-10.2); CREATININE, SERUM 2.33 mg/dL (0.57-1.11); POTASSIUM 4.1 mmol/L (3.5-5.1)
[2018-06-13] MEDS ORDERED: SODIUM CHLORIDE 0.9% 1000ML 1,000 ML IV SCH ×2 (17:00→18:00)
[2018-06-13] MEDS: RIVAROXABAN 20 MG TABLET PO SCH (17:46)
[2018-06-13 23:48] LABS: BILIRUBIN,URINE NEGATIVE (NEGATIVE); CLARITY,URINE CLEAR (CLEAR); COLOR,URINE YELLOW (YELLOW); KETONES,URINE NEGATIVE (NEGATIVE); LEUKOCYTE ESTERASE ,URINE NEGATIVE (NEGATIVE); NITRITE,URINE NEGATIVE (NEGATIVE); PROTEIN,URINE DIPSTICK 2+ (NEGATIVE); URINE UROBILINOGEN 0.2 mg/dL (0.2 - 1)
[2018-06-13 23:58] LABS: BACTERIA,URINE MANY /HPF; EPITHELIAL CELLS,URINE FEW /LPF; WBC,URINE (MAN) 0-5 /HPF (0-5)
[2018-06-14] VITALS (22 sets, daily range): BP systolic 114–181; BP diastolic 51–81
[2018-06-14] MEDS: SODIUM CHLORIDE 0.9% 1000ML 1,000 ML IV SCH (00:53)
[2018-06-14] MEDS: HYDRALAZINE HCL 100 MG TABLET PO SCH ×4 (00:55→17:30)
[2018-06-14 04:53] LABS: BASOPHILS # (AUTO) 0.1 (0.0-0.1); BASOPHILS % 0.7 % (0.0-1.0); EOSINOPHILS % 8.1 % (0.0-6.0); HEMATOCRIT 33.6 % (34.2-44.1); HEMOGLOBIN 10.9 g/dL (12.0-16.0); LYMPHOCYTES # (AUTO) 3.6 (1.0-3.2); LYMPHOCYTES % 29.7 % (18.0-39.1); MEAN CORPUSCULAR HEMOGLOBIN 27.3 pg (28-32); MEAN CORPUSCULAR HGB CONC 32.4 g/dL (31-35); MEAN CORPUSCULAR VOLUME 84.2 fL (81-99); MONOCYTES # (AUTO) 1.2 (0.2-0.8); MONOCYTES % 9.6 % (4.4-11.3); NEUTROPHILS # (AUTO) 6.2 (2.1-6.9); NEUTROPHILS % 51.5 % (38.7-80.0); PLATELET COUNT 221 x10e3/uL (140-360); RED BLOOD COUNT 3.99 x10e6/uL (3.6-5.1); RED CELL DISTRIBUTION WIDTH 15.5 % (11.7-14.4)
[2018-06-14 05:15] LABS: ANION GAP 12.3 mmol/L (8-16); CALCIUM 9.4 mg/dL (8.4-10.2); CREATININE, SERUM 2.45 mg/dL (0.57-1.11); POTASSIUM 4.3 mmol/L (3.5-5.1)
[2018-06-14] MEDS: PREGABALIN 50 MG CAP PO SCH (05:46)
[2018-06-14] MEDS: GABAPENTIN 100 MG CAP PO SCH (05:46)
[2018-06-14] MEDS: FAMOTIDINE 20 MG TAB PO SCH ×2 (07:30→17:00)
--- NOTE | 2018-06-14 07:57 | Diagnostic Imaging Report ---
PROCEDURE:US RETROPERITONEAL ( KIDNEY ). COMPARISON:None. INDICATIONS:bladder retention TECHNIQUE: Lea-scale and color sonographic images of the bilateral kidneys and bladder where obtained in transverse and longitudinal planes. FINDINGS: RIGHT KIDNEY: Measures 9.4 x 4.1 x 5.2 cm, cortex measures 1.4 cm Cysts: None Solid masses: None Stones: None Hydronephrosis: None Echogenicity: Normal LEFT KIDNEY: Measures 10.5 x 4.6 x 3.6 cm, cortex measures 2.1 cm Cysts: None Solid masses: None Stones: None Hydronephrosis: None Echogenicity: Normal Bladder: Gutiérrez catheter within the bladder. CONCLUSION: Normal renal sonography. Deonte Dumont D.O. Dictated by: Deonte Dumont D.O. on 06/14/2018 at 8:07 Electronically approved by: Deonte Dumont D.O. on 06/14/2018 at 8:07
[2018-06-14] MEDS: DOCUSATE SODIUM 100 MG CAP PO SCH ×2 (09:25→17:15)
[2018-06-14] MEDS: AMIODARONE HCL 200 MG TAB PO SCH ×2 (09:25→17:17)
[2018-06-14] MEDS: LIDOCAINE 5% PATCH TP SCH (09:26)
[2018-06-14] MEDS: METOPROLOL TARTRATE 50 MG TAB PO SCH ×2 (09:26→21:25)
[2018-06-14] MEDS: SENNOSIDES 8.6 MG TAB PO SCH ×2 (09:26→17:18)
[2018-06-14] MEDS: MINOXIDIL 2.5 MG TAB PO SCH ×2 (09:26→21:25)
[2018-06-14] MEDS ORDERED: ALBUMIN 5% 0.05 GM/ML BTL IV ONE ×2 (13:15→14:00)
[2018-06-14 14:30] LABS: CREATININE,URINE RANDOM 126.82 mg/dL (47-110); TOTAL PROTEIN, URINE 131.6 mg/dL (1-14)
--- NOTE | 2018-06-14 14:54 | Consultation ---
DATE OF CONSULTATION: June 14, 2018 HISTORY OF PRESENT ILLNESS: This is an 83-year-old lady from the [facility] who has chronic history of hypertension, history of coronary artery disease, status post stent placement. No history of RI. Denies any history of stroke in the past. No history of malignancy. No history of kidney disease in the past. Renal has been consulted because of worsening kidney function over the past couple of days. Patient was admitted with accelerated hypertension with a normal serum creatinine. Blood pressure was in the systolic 220s, it has dropped. It shows improvement, but extreme lability in blood pressure. On several instances, his blood pressure dropped less than 90, two obvious recordings on June 12, 2018 and then June 13, 2018. CT brain remarkable for white matter changes. Kidney ultrasound noted. Patient has had recent cardiac cath, showed patent stents and no significant coronary artery disease at [place]. Also had renal angiogram done, which showed no renal artery stenosis. She regularly follows up with Dr. Garcia. She also had a history of paroxysmal atrial fibrillation and nonsustained ventricular tachycardia, also has a history of peripheral neuropathy status post lumbar spine surgery. She had disk disease, history of anemia. Laboratory test shows a white count of 12.1, hemoglobin 10.9. Urine cultures pending. Serum creatinine went up from 0.78 on June 12 to 2.23 on June 13 and now up to 2.45. Sodium 133, potassium 4.3, bicarbonate 22. Calcium was 10.5 initially, down to 9.4. on June 08, 2018, it showed less than 0.167. ALLERGIES: TO CODEINE. Currently awake, alert. Appears short of breath. Denies any shortness of breath though. Denies any chest pain or headache. Feels quite weak. Denies nausea, vomiting, or abdominal pain. MEDICATIONS: She is currently on IV normal saline at 60 mL an hour. She is also on amiodarone 200 mg p.o. b.i.d., Colace 100 mg b.i.d., famotidine 20 mg b.i.d., gabapentin 100 mg q.8, hydralazine 100 mg p.o. q.6, metoprolol 200 mg q.12, minoxidil 2.5 q.12. Olmesartan was discontinued. Pregabalin was discontinued. She is on Xarelto 20 mg, please see dose. She is on Senokot p.r.n. and tramadol p.r.n.. SOCIAL HISTORY: Patient denies smoking or alcohol use. FAMILY HISTORY: Significant for hypertension. PHYSICAL EXAMINATION GENERAL: Awake, alert, sitting up in no apparent respiratory distress, appears definitely tachypneic. VITALS: With blood pressure 152/67, temperature 100.1, pulse 76, currently in sinus rhythm. Pulse oximetry shows 93% oxygen saturation in room air. HEAD AND NECK: Cornea clear. Oral mucosa moist. Neck veins not distended. LUNGS: Relatively clear. HEART: A 2/6 to 3/6 ejection systolic murmur heard over lower left sternal border and mitral area. Loud S2, questionable S3. ABDOMEN: Otherwise soft, nontender. No apparent visceromegaly. LOWER EXTREMITIES: Shows no edema. Last urinalysis done on June 13 shows specific gravity 1.020, 2+ protein, 6 to 10 rbc's, 0 to 5 wbc's, 2 to 5 hyaline casts, and 2+ protein. IMPRESSION AND PLAN: Acute tubular necrosis possibly due to hypotension in a lady who came in with accelerated hypertension. Plan on obtaining a BNP level along with serum uric acid. She also has dipstick positive protein, fairly concentrated urine. Kidney ultrasound noted. We will obtain a stat chest x-ray. Hold off plans on IV normal saline. We will give 5% albumin, 500 mL. I will leave parameters for the antihypertensive medication, avoid nonsteroidal anti-inflammatory drug medication. Echocardiogram report awaited. Further recommendations to follow. Job#: [id number]
[2018-06-14] MEDS: RIVAROXABAN 20 MG TABLET PO SCH (17:18)
--- NOTE | 2018-06-14 18:01 | Diagnostic Imaging Report ---
Examination: Single AP view of the chest. COMPARISON: May 22, 2017 INDICATION: Congestive heart failure DISCUSSION: Lines/tubes: None. Lungs: Enlargement of the central pulmonary vasculature with edema. Pleura: There is no pleural effusion or pneumothorax. Heart and mediastinum: Heart is enlarged Bones and soft tissues: No acute bony abnormalities. IMPRESSION: Cardiomegaly with mild edema. Signed by: Dr. Greyson Freeman M.D. on 06/14/2018 5:57 PM
--- NOTE | 2018-06-14 19:03 | Progress Note ---
DATE: June 14, 2018 CARDIOLOGY PROGRESS NOTE The patient was seen in the room. The patient's blood pressure is 170/90. The patient is on multiple antihypertensive type of medications. Please refer to the medication list. However, the renal function is deteriorating and creatinine went up to 0.3 and BUN also went up. Dr. Agustin, renal specialist, consulted and is following the patient. This patient is getting IV albumin and also hydralazine. The patient's renal functions were basically within normal limits when she came here. However, the patient feels better, but she has got some swelling of the face also, but she does not have any shortness of breath. The patient's LV function was normal in the past. She has coronary artery disease and had a stent put in the past. The main problem was malignant hypertension. Dr. Agustin will follow the patient from renal point of view. Dr. Dominic Ospina is following the primary care. I will follow cardiac gorman. Continue to follow this patient in ICU. Job#: [id number]
[2018-06-15] VITALS (14 sets, daily range): BP systolic 111–164; BP diastolic 49–87
[2018-06-15 05:13] LABS: ALBUMIN 3.1 g/dL (3.5-5.0); ALBUMIN/GLOBULIN RATIO 1.1 (0.8-2.0); ANION GAP 11.1 mmol/L (8-16); CALCIUM 9.6 mg/dL (8.4-10.2); CREATININE, SERUM 1.57 mg/dL (0.57-1.11); POTASSIUM 4.1 mmol/L (3.5-5.1)
[2018-06-15] MEDS: HYDRALAZINE HCL 100 MG TABLET PO SCH ×4 (05:55→17:22)
[2018-06-15 06:03] LABS: BASOPHILS # (AUTO) 0.1 (0.0-0.1); BASOPHILS % 0.6 % (0.0-1.0); EOSINOPHILS # (AUTO) 0.9 (0.0-0.4); EOSINOPHILS % 7.4 % (0.0-6.0); HEMATOCRIT 31.8 % (34.2-44.1); HEMOGLOBIN 10.3 g/dL (12.0-16.0); LYMPHOCYTES # (AUTO) 2.3 (1.0-3.2); LYMPHOCYTES % 18.6 % (18.0-39.1); MEAN CORPUSCULAR HEMOGLOBIN 27.3 pg (28-32); MEAN CORPUSCULAR HGB CONC 32.4 g/dL (31-35); MEAN CORPUSCULAR VOLUME 84.4 fL (81-99); MONOCYTES # (AUTO) 1.2 (0.2-0.8); MONOCYTES % 9.6 % (4.4-11.3); NEUTROPHILS # (AUTO) 7.8 (2.1-6.9); NEUTROPHILS % 63.3 % (38.7-80.0); PLATELET COUNT 225 x10e3/uL (140-360); RED BLOOD COUNT 3.77 x10e6/uL (3.6-5.1); RED CELL DISTRIBUTION WIDTH 15.6 % (11.7-14.4)
[2018-06-15] MEDS: GABAPENTIN 100 MG CAP PO SCH ×3 (06:30→21:39)
[2018-06-15] MEDS: MINOXIDIL 2.5 MG TAB PO SCH ×2 (09:00→21:39)
[2018-06-15] MEDS: DOCUSATE SODIUM 100 MG CAP PO SCH ×2 (09:18→17:22)
[2018-06-15] MEDS: FAMOTIDINE 20 MG TAB PO SCH ×2 (09:18→17:22)
[2018-06-15] MEDS: AMIODARONE HCL 200 MG TAB PO SCH ×2 (09:18→17:22)
[2018-06-15] MEDS: METOPROLOL TARTRATE 50 MG TAB PO SCH ×2 (09:19→21:39)
[2018-06-15] MEDS: LIDOCAINE 5% PATCH TP SCH (09:19)
[2018-06-15] MEDS: SENNOSIDES 8.6 MG TAB PO SCH ×2 (09:19→17:22)
[2018-06-15] MEDS ORDERED: CITRATE OF MAGNESIA 300ML BOTTLE PO ONE (10:30)
--- NOTE | 2018-06-15 11:27 | Progress Note ---
DATE: June 15, 2018 CARDIOLOGY PROGRESS NOTE The patient was seen in the ICU. The patient is feeling better, no complaints. The blood pressure has also come down to about 140/90 mmHg; however, the renal function deteriorated. However, compared to yesterday, it is improving. The GFR is 34 at this time. I explained to her that she needs to stay in the hospital until the renal function improves. Dr. Agustin, renal specialist, is following the patient. The patient does not have any significant cardiac issues at this time. The main problem at this time is admitted for uncontrolled malignant hypertension; but when the BP is coming down to normal, her renal function deteriorated. However, the patient is showing some improvement since yesterday. I recommended she stay in the hospital until the renal function improves fairly good. She never had any major renal function problem in the past. 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 At this time, the patient is to continue the present medications ordered by Dr. Agustin and the primary physician. Cardiology will follow for the cardiac evaluation. PLAN: Dr. Cj Summers is going to take care of this patient from tomorrow, that is from until Wednesday. I also explained to the patient. Job#: [id number] JONAH
[2018-06-15] MEDS: ACETAMINOPHEN 325 MG TAB PO PRN (17:23)
[2018-06-15] MEDS: RIVAROXABAN 20 MG TABLET PO SCH (17:47)
[2018-06-15] MEDS ORDERED: PHENYLEPH/SHARK OIL/MO/PETROL 30 GM OINT RC PRN (18:45)
[2018-06-16] VITALS: BP 172/72
[2018-06-16] MEDS: HYDRALAZINE HCL 100 MG TABLET PO SCH ×4 (00:21→17:27)
[2018-06-16 04:00] VITALS: BP 134/74
[2018-06-16] MEDS: GABAPENTIN 100 MG CAP PO SCH ×3 (05:02→21:26)
[2018-06-16 05:27] LABS: ALBUMIN 3.2 g/dL (3.5-5.0); ANION GAP 12.3 mmol/L (8-16); CALCIUM 10.2 mg/dL (8.4-10.2); CREATININE, SERUM 1.27 mg/dL (0.57-1.11); POTASSIUM 4.3 mmol/L (3.5-5.1)
[2018-06-16] MEDS ORDERED: BISACODYL 5 MG TAB EC PO PRN (06:15)
[2018-06-16] MEDS: ACETAMINOPHEN 325 MG TAB PO PRN (06:48)
[2018-06-16] MEDS ORDERED: HYDROMORPHONE 2MG/ML 2 MG/ML ML IV NR (07:45)
[2018-06-16] MEDS ORDERED: MAGNESIUM HYDROXIDE 30 ML UDC PO NR (07:45)
[2018-06-16] MEDS: HYDROCORTISONE ACETATE 25 MG/SUPP.RECT SUPP RC SCH ×3 (07:56→21:26)
[2018-06-16 08:00] VITALS: BP 117/54
[2018-06-16] MEDS: MINOXIDIL 2.5 MG TAB PO SCH ×2 (08:25→21:26)
[2018-06-16] MEDS: DOCUSATE SODIUM 100 MG CAP PO SCH ×2 (09:02→17:26)
[2018-06-16] MEDS: FAMOTIDINE 20 MG TAB PO SCH ×2 (09:02→17:27)
[2018-06-16] MEDS: AMIODARONE HCL 200 MG TAB PO SCH ×2 (09:02→17:26)
[2018-06-16] MEDS: METOPROLOL TARTRATE 50 MG TAB PO SCH ×2 (09:03→21:26)
[2018-06-16] MEDS: SENNOSIDES 8.6 MG TAB PO SCH ×2 (09:03→17:26)
[2018-06-16] MEDS: LIDOCAINE 5% PATCH TP SCH (09:03)
[2018-06-16 12:00] VITALS: BP 176/74
[2018-06-16 16:00] VITALS: BP 132/60
[2018-06-16] MEDS: HYDROMORPHONE 2MG/ML 2 MG/ML ML IV PRN ×2 (16:03→21:20)
[2018-06-16] MEDS ORDERED: HYDROCORTISONE ACETATE 25 MG/SUPP.RECT SUPP RC SCH (17:45)
[2018-06-16] MEDS ORDERED: POLYETHYLENE GLYCOL 3350 17 GM PACK PO ONE (17:45)
[2018-06-16 20:00] VITALS: BP 179/81
[2018-06-16] MEDS: ONDANSETRON HCL INJ 2 MG/ML VIAL IV PRN (21:20)
[2018-06-17] VITALS: BP 157/79
[2018-06-17] MEDS: HYDRALAZINE HCL 100 MG TABLET PO SCH ×3 (01:10→13:46)
[2018-06-17 04:00] VITALS: BP 165/73
[2018-06-17 05:19] LABS: ANION GAP 12.7 mmol/L (8-16); CALCIUM 9.6 mg/dL (8.4-10.2); CREATININE, SERUM 1.19 mg/dL (0.57-1.11); POTASSIUM 4.7 mmol/L (3.5-5.1)
[2018-06-17] MEDS: GABAPENTIN 100 MG CAP PO SCH ×2 (06:00→16:30)
[2018-06-17] MEDS: ONDANSETRON HCL INJ 2 MG/ML VIAL IV PRN (06:18)
[2018-06-17] MEDS: HYDROMORPHONE 2MG/ML 2 MG/ML ML IV PRN (06:18)
[2018-06-17 07:49] VITALS: BP 143/78
[2018-06-17] MEDS: DOCUSATE SODIUM 100 MG CAP PO SCH ×2 (08:44→16:30)
[2018-06-17] MEDS: MINOXIDIL 2.5 MG TAB PO SCH (08:44)
[2018-06-17] MEDS: AMIODARONE HCL 200 MG TAB PO SCH ×2 (08:44→16:30)
[2018-06-17] MEDS: FAMOTIDINE 20 MG TAB PO SCH ×2 (08:44→16:30)
[2018-06-17] MEDS: LIDOCAINE 5% PATCH TP SCH (08:45)
[2018-06-17] MEDS: HYDROCORTISONE ACETATE 25 MG/SUPP.RECT SUPP RC SCH ×2 (08:45→16:30)
[2018-06-17] MEDS: SENNOSIDES 8.6 MG TAB PO SCH ×2 (08:45→16:30)
[2018-06-17] MEDS: METOPROLOL TARTRATE 50 MG TAB PO SCH (08:45)
[2018-06-17 09:36] VITALS: BP 143/78
[2018-06-17 13:13] VITALS: BP 135/64
[2018-06-17 16:23] VITALS: BP 134/63
--- NOTE | 2018-06-17 18:26 | Discharge Summary ---
DISCHARGE DIAGNOSES 1. Malignant hypertension. 2. Hypokalemia, resolved. 3. Paroxysmal atrial fibrillation. 4. Morbid obesity. 5. Normocytic anemia. 6. Hypophosphatemia. 7. Coronary artery disease with history of stents. 8. Chronic lumbago without sciatica. CONSULTANTS: Cardiology and renal. VITAL SIGNS: Temperature is 97.2, pulse 59, respiratory rate 18, blood pressure 135/64, pulse oximetry 97% on room air. LAB FINDINGS: Show sodium was 130, potassium 4.7, chloride 107, ____ 23, anion gap 12, BUN 33, creatinine 1.1, glucose 120. Hematology: White count 12.2, hemoglobin 10.3, hematocrit 32, platelets of 225,000. Urinalysis shows urine protein to creatinine 1 gram. Urinalysis was found to be consistently negative. Urine culture was negative. IMAGING STUDIES: Chest x-ray shows cardiomegaly with mild edema. Renal ultrasound right kidney 9.4 cm, left kidney 10.5 cm, otherwise normal ultrasound. Lumbar CT showed mild left curvature, , L1 through S1, worse right on L1, C2. There are degenerative changes in the lumbar spine. There is some spinal canal stenosis as well. No disk herniation. CT brain was found to be negative, nothing acute. Doppler renal ultrasound was found to be very limited according to the report. There was no evidence of renal artery stenosis. HOSPITAL COURSE: This is an 83-year-old female with known history of hypertension who comes into the ED after finding to have a blood pressure greater than 255 systolically, and was sent to the hospital for further evaluation. The patient was admitted to the ICU and started on nicardipine drip. The patient was eventually weaned off of nicardipine drip and started on oral medications with much improved blood pressure prior to discharge home. Cardiology was consulted due to the history of atrial fibrillation. The patient was to continue with amiodarone and Xarelto. Cardiology said it was okay for the patient to be discharged home. Her rate was well controlled and managed while in the hospital. She did develop acute kidney injury likely secondary to hypertensive urgency, for which juvenile probation officer was consulted. The patient's renal function improved prior to discharge home. The patient has been cleared by all consultants for discharge home. The patient's blood pressure is well managed and controlled, and prescription was given to the patient for antihypertensive medications. On the day of discharge vital signs stable, labs reviewed and stable. Patient seen and evaluated and examined thoroughly on the day of discharge with no new complaints. Patient verbalized understanding and agreed with the plan of care, to follow up accordingly as an outpatient with the primary care physician in 1 week and chief hydroelectric station operator and renal doctor in the next 2 to 3 weeks. MEDICATIONS: See medication reconciliation form including amiodarone 200 mg one tablet p.o. b.i.d., hydralazine p.o. t.i.d., metoprolol 100 mg 2 tablets p.o. b.i.d., one tablet p.o. b.i.d. DISPOSITION: Home. CONDITION ON DISCHARGE: Stable. DIET: Heart Healthy. In the event of any worsening symptoms, the patient is advised to come back to the ED for further evaluation. Discharge summary took greater than 35 minutes. ROSALINE NEVAREZ MD Job#: [id number] GH
== END 2018-06-17 17:20 | disposition home or self-care (01) | DRG 304 ==
LOC: ER 09:47 → ERHOLD 14:30 → ICU 16:45 → MED/SURG2 06-15 13:19
PROVIDERS: ADMIT Internal Medicine; ATTEND Internal Medicine
DX: I16.0 Hypertensive urgency (principal); N17.0 Acute kidney failure with tubular necrosis; I70.1 Atherosclerosis of renal artery; E11.40 Type 2 diabetes mellitus with diabetic neuropathy, unspecified; Z79.4 Long term (current) use of insulin; I25.10 Atherosclerotic heart disease of native coronary artery without angina pectoris; Z95.5 Presence of coronary angioplasty implant and graft; M54.40 Lumbago with sciatica, unspecified side; E83.39 Other disorders of phosphorus metabolism; I48.0 Paroxysmal atrial fibrillation; Z79.01 Long term (current) use of anticoagulants; E87.6 Hypokalemia; R82.71 Bacteriuria; D64.9 Anemia, unspecified; F41.9 Anxiety disorder, unspecified; M46.90 Unspecified inflammatory spondylopathy, site unspecified
CPT/HCPCS: 36415; 70450; 71045; 72131; 76770; 78451; 80048; 80053; 81001; 82550; 82553; 82570; 83735; 83880; 84100; 84156; 84244; 84484; 84550; 85025; 87086; 93005; 93306; 93976; 96365; 96366; 97139; 99284; A9502; J0360; J2405; J3480; J7030; J7050

== ENCOUNTER 2019-02-24 10:33 | Observation (INO) | payer MEDICARE, OTHER ==
[~2019-02-24] VITALS: Ht 165.1 cm; Wt 78.5 kg
[~2019-02-24 10:33] MED LIST changes: +BYSTOLIC10 MG PO; +HYDRALAZINE HCL25 MG PO; +salonpas TOP
--- OUTSIDE RECORDS SUMMARY | 2019-02-24 10:37 | XMS REPORT | Continuity of Care Document ---
Author Author [employer] Address Unknown Phone Unavailable Care Team Providers Care Pad Extractor Tender Name Role Phone [facility] [employer] Information Exchange Unavailable Unavailable Problems Problem Status Onset Date Classification Date Reported Comments Source Malignant hypertension Active Problem 06/17/2018 [facility] Medications Medication Details Route Status Patient Instructions Ordering Provider Order Date Source Clonidine Hcl 0.3 Mg Tablet, 0.3 Mg Oral Four Times Daily Active 06/17/2018 [facility] Metoprolol Tartrate (Lopressor) 25 Mg Tab, 75 Mg Oral Daily Active 06/17/2018 [facility] Nebivolol Hcl (Bystolic) 10 Mg Tablet, 20 Mg Oral Twice A Day Active 06/17/2018 [facility] Amiodarone Hcl 200 Mg Tablet, Active 06/08/2018 [facility] Amlodipine Besylate 10 Mg Tablet, Active 06/08/2018 [facility] Tramadol Hcl (Ultram 50MG*) 50 Mg Tab, Active 06/08/2018 [facility] Clonidine Hcl 0.2 Mg Tablet, 0.2 Mg Oral 4 Times/Day Active 05/22/2017 [facility] Hydralazine Hcl 50 Mg Tablet, 50 Mg Oral Three Times A Day Active 05/22/2017 [facility] Isosorbide Dinitrate 30 Mg Tablet, 30 Mg Oral Daily Active 05/22/2017 [facility] Ca Cmb No.1/Vit D3/B-6/Fa/B12 (Vitamin D3 1,000 Unit Tablet) 1 Each Tablet, 1 Each Oral Daily Active 03/25/2013 [facility] Dronedarone (Multaq 400MG Tablets) 400 Mg Tab, 400 Mg G Tube as needed Active 03/25/2013 [facility] Duloxetine Hcl (Cymbalta) 30 Mg Capsule., 30 Mg Oral as needed Active 03/25/2013 [facility] Hydralazine Hcl 25 Mg Tablet, 25 Mg Oral Twice A Day Active 03/25/2013 [facility] Ibuprofen (Motrin) 800 Mg Tablet, 800 Mg Oral as needed Active 03/25/2013 [facility] Nebivolol Hcl (Bystolic) 10 Mg Tablet, 10 Mg Oral Daily Active 03/25/2013 [facility] [place]-3 Fatty Acids/Fish Oil (Fish Oil 1,000 Mg Capsule) 1 Each Capsule, 1 Each Oral Daily Active 03/25/2013 [facility] Aspirin (Aspir 81) 81 Mg Tablet. [facility] Active [facility] Clopidogrel Bisulfate (Plavix) 75 Mg Tablet Daily Active [facility] Hydralazine Hcl 25 Mg Tab Three Times A Day Active [facility] Salonpas Active [facility] Allergies, Adverse Reactions, Alerts Substance Category Reaction Severity Reaction type Status Date Reported Comments Source Codeine N/V Mild Allergy to Substance Active 03/25/2013 [facility] Immunizations No Data Provided for This Section Results Order Name Results Value Reference Range Date Interpretation Comments Source Serum or plasma sodium measurement (moles/volume) 138 136 - 145 06/17/2018 [facility] Serum or plasma potassium measurement (moles/volume) 4.7 3.5 - 5.1 06/17/2018 [facility] Serum or plasma chloride measurement (moles/volume) 107 98 - 107 06/17/2018 [facility] Serum or plasma carbon dioxide, total measurement (moles/volume) 23 22 - 29 06/17/2018 [facility] Serum or plasma anion gap 12.7 8 - 16 06/17/2018 [facility] Serum or plasma urea nitrogen measurement (mass/volume) 33 7 - 26 06/17/2018 [facility] Serum or plasma creatinine measurement (mass/volume) 1.19 0.57 - 1.11 06/17/2018 [facility] Serum or plasma urea nitrogen/creatinine mass ratio 28 6 - 25 06/17/2018 [facility] Estimated glomerular filtration rate (GFR) determination 53 60 06/17/2018 [facility] Glucose measurement 120 74 - 118 06/17/2018 [facility] Serum or plasma calcium measurement (mass/volume) 9.6 8.4 - 10.2 06/17/2018 [facility] Serum or plasma total bilirubin measurement (mass/volume) 0.5 0.2 - 1.2 06/16/2018 [facility] Aspartate Amino Transf (AST/SGOT) 15 5 - 34 06/16/2018 [facility] Serum or plasma alanine aminotransferase measurement (enzymatic activity/volume) 11 0 - 55 06/16/2018 [facility] Serum or plasma protein measurement (mass/volume) 6.3 6.5 - 8.1 06/16/2018 [facility] Serum or plasma albumin measurement (mass/volume) 3.2 3.5 - 5.0 06/16/2018 [facility] Plasma globulin measurement (mass/volume) 3.1 2.3 - 3.5 06/16/2018 [facility] Serum or plasma albumin/globulin mass ratio 1.0 0.8 - 2.0 06/16/2018 [facility] Serum or plasma alkaline phosphatase measurement (enzymatic activity/volume) 41 40 - 150 06/16/2018 [facility] BNP Bld-mCnc 239.0 0 - 100 06/16/2018 [facility] Blood leukocytes automated count (number/volume) 12.25 4.8 - 10.8 06/15/2018 [facility] Blood erythrocytes automated count (number/volume) 3.77 3.6 - 5.1 06/15/2018 [facility] Blood hemoglobin measurement (moles/volume) 10.3 12.0 - 16.0 06/15/2018 [facility] Automated blood hematocrit (volume fraction) 31.8 34.2 - 44.1 06/15/2018 [facility] Automated erythrocyte mean corpuscular volume 84.4 81 - 99 06/15/2018 [facility] Automated erythrocyte mean corpuscular hemoglobin (mass per erythrocyte) 27.3 28 - 32 06/15/2018 [facility] Automated erythrocyte mean corpuscular hemoglobin concentration measurement (mass/volume) 32.4 31 - 35 06/15/2018 [facility] RDW BldCo-Rto 15.6 11.7 - 14.4 06/15/2018 [facility] Automated blood platelet count (count/volume) 225 140 - 360 06/15/2018 [facility] Automated blood segmented neutrophil count as percentage of total leukocytes 63.3 38.7 - 80.0 06/15/2018 [facility] Automated blood lymphocyte count as percentage ot total leukocytes 18.6 18.0 - 39.1 06/15/2018 [facility] Automated blood monocyte count as percentage of total leukocytes 9.6 4.4 - 11.3 06/15/2018 [facility] Automated blood eosinophil count as percentage of total leukocytes 7.4 0.0 - 6.0 06/15/2018 [facility] Automated blood basophil count as percentage of total leukocytes 0.6 0.0 - 1.0 06/15/2018 [facility] IM GRANULOCYTES % 0.5 0.0 - 1.0 06/15/2018 [facility] Automated blood neutrophil count 7.8 2.1 - 6.9 06/15/2018 [facility] Blood lymphocytes count (number/volume) 2.3 1.0 - 3.2 06/15/2018 [facility] Blood monocytes automated count (number/volume) 1.2 0.2 - 0.8 06/15/2018 [facility] Automated blood eosinophil count 0.9 0.0 - 0.4 06/15/2018 [facility] Automated blood basophil count (count/volume) 0.1 0.0 - 0.1 06/15/2018 [facility] Absolute Immature Granulocyte (auto 0.06 0 - 0.1 06/15/2018 [facility] Serum or plasma uric acid measurement (mass/volume) 6.1 2.6 - 8.0 06/14/2018 [facility] Urine color determination YELLOW YELLOW 06/13/2018 [facility] Urine clarity CLEAR CLEAR 06/13/2018 [facility] Specific gravity of Urine by Test strip 1.020 1.010 - 1.025 06/13/2018 [facility] Urine pH measurement by automated test strip 6 5 - 7 06/13/2018 [facility] Urine leukocyte esterase detection by dipstick NEGATIVE NEGATIVE 06/13/2018 [facility] Urine nitrite detection NEGATIVE NEGATIVE 06/13/2018 [facility] Urine protein measurement by test strip (mass/volume) 2+ NEGATIVE 06/13/2018 [facility] Urine glucose detection NEGATIVE NEGATIVE 06/13/2018 [facility] Urine ketones detection by automated test strip NEGATIVE NEGATIVE 06/13/2018 [facility] Urine urobilinogen measurement by test strip (mass/volume) 0.2 0.2 - 1 06/13/2018 [facility] Urine total bilirubin measurement (mass/volume) NEGATIVE NEGATIVE 06/13/2018 [facility] Urine erythrocytes detection NEGATIVE NEGATIVE 06/13/2018 [facility] Automated urine sediment leukocyte count by microscopy (number/high power field) 0-5 0 - 5 06/13/2018 [facility] Erythrocytes detection in urine sediment by light microscopy 6-10 0 - 5 06/13/2018 [facility] Bacteria detection in urine sediment by light microscopy MANY NONE 06/13/2018 [facility] Epithelial cells detection in urine sediment by light microscopy FEW NONE 06/13/2018 [facility] Hyaline casts detection in urine sediment by light microscopy 2-5 0 - 1 06/13/2018 [facility] Urine protein measurement (mass/volume) 131.6 1 - 14 06/13/2018 [facility] Urine creatinine measurement (mass/volume) 126.82 47 - 110 06/13/2018 [facility] Random urine protein/creatinine ratio 1.00 06/13/2018 [facility] Serum or plasma magnesium measurement (mass/volume) 2.1 1.3 - 2.1 06/13/2018 [facility] Phosphorus measurement 2.5 2.3 - 4.7 06/11/2018 [facility] Serum or plasma creatine kinase measurement (enzymatic activity/volume) 118 29 - 168 06/08/2018 [facility] Serum or plasma creatine kinase MB measurement (mass/volume) 1.30 0 - 5.0 06/08/2018 [facility] Troponin I measurement by highly sensitive enzyme immunoassay 0.052 0 - 0.300 06/08/2018 [facility] Plasma renin measurement (enzymatic activity/volume) <0.167 0.167 - 5.380 06/08/2018 [facility] Pathology Reports No Data Provided for This Section Diagnostic Reports No Data Provided for This Section Consultation Notes No Data Provided for This Section Discharge Summaries No Data Provided for This Section History and Physicals No Data Provided for This Section Vital Signs No Data Provided for This Section Encounters Location Location Details Encounter Type Encounter Number Reason For Visit Attending Provider ADM Date DC Date Status Source Discharged Inpatient [id number] JSOEPH SHARMA MD 06/08/2018 06/17/2018 [facility] Procedures Procedure Code Date Perfomer Comments Source Ultrasound, renal [id number] 06/13/2018 ZACHARY [facility] Computed tomography of lumbar spine without contrast [id number] 06/11/2018 WALT [facility] US Doppler renal vessels limited [id number] 06/08/2018 [facility] Computed tomography of brain without radiopaque contrast [id number] 06/08/2018 [facility] Assessment and Plan No Data Provided for This Section Plan of Care Plan of Care Date Source Discharge Date 06/17/18 5:20pm Disposition HOME, SELF-CARE Instructions/Education Provided Hypertension Prescriptions See Medication Section Additional Instructions/Education follow up with pcp in 1week 06/17/2018 [facility] Social History Social History Date Source Smoking Status Start Date Stop Date Never Smoker 06/17/2018 [facility] Family History No Data Provided for This Section Advance Directives Order Name Results Value Date Source Advance Directives Advance Directives Directive Response Recorded Date/Time Does the patient have an advance directive? No 06/08/18 5:29pm If yes, is advance directive on file with [facility]? No 06/08/18 5:29pm If not on file with [facility] will patient provide a copy? No 06/08/18 5:29pm Do you have a Directive to Physician? No 06/08/18 9:55am Do you have a Medical Power of Sports Agent? No 06/08/18 9:55am Do you have an out of hospital Do Not Resuscitate Order? No 06/08/18 9:55am Do you have any special needs we should be aware of? No 06/08/18 9:55am Do you have a support person here with you today? Yes 06/08/18 9:55am Did patient receive Notice of Privacy Practices? Yes 06/08/18 9:55am Did patient receive patient rights and responsibilities? Yes 06/08/18 9:55am 06/17/2018 [facility] Functional Status No Data Provided for This Section
[2019-02-24] MEDS ORDERED: DICYCLOMINE HCL 20 MG TAB PO ONE (12:00)
--- NOTE | 2019-02-24 12:08 | Diagnostic Imaging Report ---
EXAMINATION: CHEST SINGLE (PORTABLE) INDICATION: Pain COMPARISON: None FINDINGS: TUBES and LINES: None. LUNGS: The lung volumes are low. No pulmonary edema. Patchy opacity at the left lung base silhouettes the left hemidiaphragm. PLEURA: No pleural effusion or pneumothorax. HEART AND MEDIASTINUM: The heart is enlarged. Atherosclerotic calcic dictations of the thoracic aorta. BONES AND SOFT TISSUES: No acute fracture or dislocation. Severe degenerative changes of both humeral joints. UPPER ABDOMEN: No free air under the diaphragm. IMPRESSION: Low lung volumes. Patchy opacity at the left lung base may represent subsegmental atelectasis however superimposed aspiration or pneumonia could also have this appearance in the proper clinical setting. Cardiomegaly. Signed by: Gino Montes De Oca MD on 02/24/2019 12:04 PM
[2019-02-24 12:20] LABS: BILIRUBIN,URINE NEGATIVE (NEGATIVE); CLARITY,URINE CLEAR (CLEAR); COLOR,URINE YELLOW (YELLOW); KETONES,URINE NEGATIVE (NEGATIVE); LEUKOCYTE ESTERASE ,URINE NEGATIVE (NEGATIVE); NITRITE,URINE NEGATIVE (NEGATIVE); PROTEIN,URINE DIPSTICK 2+ (NEGATIVE); URINE UROBILINOGEN 1 mg/dL (0.2 - 1)
--- NOTE | 2019-02-24 12:23 | Diagnostic Imaging Report ---
EXAM: CT Abdomen and Pelvis WITHOUT intravenous contrast INDICATION: Abdominal pain COMPARISON: None. TECHNIQUE: Abdomen and pelvis were scanned utilizing a multidetector helical scanner from the lung base to the pubic symphysis without administration of IV contrast. Coronal and sagittal reformations were obtained. IV CONTRAST: None ORAL CONTRAST: None COMPLICATIONS: None RADIATION DOSE: Total DLP: 343.1 mGy*cm Dose modulation, iterative reconstruction, and/or weight based adjustment of the mA/kV was utilized to reduce the radiation dose to as low as reasonably achievable. FINDINGS: LOWER THORAX: Mild bibasilar dependent subsegmental atelectasis. No focal consolidation. Multichamber cardiomegaly. After cirrhotic calcifications of the coronary arteries. HEPATOBILIARY: No focal hepatic lesions. Status post cholecystectomy. SPLEEN: No splenomegaly. PANCREAS: No focal masses or ductal dilatation. ADRENALS: No adrenal nodules. KIDNEYS/URETERS: No hydronephrosis or renal calculi. 1.5 cm exophytic lesion at the posterior right renal mid pole. PELVIC ORGANS/BLADDER: Unremarkable. PERITONEUM / RETROPERITONEUM: No free air or fluid. LYMPH NODES: No lymphadenopathy. VESSELS: Atherosclerotic calcifications of the abdominal aorta and major branches. GI TRACT: There is diverticulosis involving the sigmoid, descending, as well as ascending colon with no CT evidence of diverticulitis. No abnormal bowel wall thickening or bowel obstruction. BONES AND SOFT TISSUES: No acute osseous injury. Severe degenerative changes of the lumbar spine with multilevel degenerative endplate changes and vacuum phenomenon. Bilateral L5 pars defects with grade 1 anterolisthesis of L5-S1. IMPRESSION: Right and left-sided diverticulosis. No CT evidence of diverticulitis. Right posterior renal mid pole 1.5 cm exophytic lesion with greater than renal parenchymal density may represent a soft tissue mass versus hyperdense cyst. Follow-up imaging with renal mass protocol CT or renal ultrasound is recommended. Multichamber cardiomegaly and coronary artery atherosclerotic calcifications. Signed by: Gino Montes De Oca MD on 02/24/2019 12:20 PM
--- NOTE | 2019-02-24 12:25 | NUR ---
REC'D PT IN RM 6 FROM RADIOLOGY WITH C/O ABD. PAIN 03/11. MEDS GIVEN PER DR'S ORDRS. IV STARTED/LABS DRAWN AND SENT OFF. BED LOW/LOCKED AND CALL ESCOBAR AT SIDE
[2019-02-24 12:37] LABS: BACTERIA,URINE MODERATE /HPF; EPITHELIAL CELLS,URINE FEW /LPF; RBC,URINE 0-5 /HPF (0-5)
[2019-02-24 13:02] LABS: BASOPHILS % 0.6 % (0.0-1.0); EOSINOPHILS # (AUTO) 0.1 (0.0-0.4); EOSINOPHILS % 1.9 % (0.0-6.0); HEMATOCRIT 35.4 % (34.2-44.1); HEMOGLOBIN 11.2 g/dL (12.0-16.0); LYMPHOCYTES # (AUTO) 1.7 (1.0-3.2); MEAN CORPUSCULAR HEMOGLOBIN 28.4 pg (28-32); MEAN CORPUSCULAR HGB CONC 31.6 g/dL (31-35); MEAN CORPUSCULAR VOLUME 89.6 fL (81-99); MONOCYTES # (AUTO) 0.6 (0.2-0.8); MONOCYTES % 9.2 % (4.4-11.3); NEUTROPHILS % 62.1 % (38.7-80.0); PLATELET COUNT 192 x10e3/uL (140-360); RED BLOOD COUNT 3.95 x10e6/uL (3.6-5.1); RED CELL DISTRIBUTION WIDTH 14.4 % (11.7-14.4)
[2019-02-24 13:24] LABS: ALANINE AMINOTRANSFERASE 368 IU/L (0-55); ALBUMIN 3.8 g/dL (3.5-5.0); ALKALINE PHOSPHATASE 157 IU/L (40-150); AMYLASE 283 U/L (25-125); ANION GAP 13.4 mmol/L (8-16); BLOOD UREA NITROGEN 14 mg/dL (7-26); BUN/CREATININE RATIO 16 (6-25); CARBON DIOXIDE 27 mmol/L (22-29); CHLORIDE 106 mmol/L (98-107); CREATINE KINASE 110 IU/L (29-168); CREATININE, SERUM 0.86 mg/dL (0.57-1.11); EST GLOMERULAR FILTRATION RATE > 60 ML/MIN (60-); GLUCOSE 71 mg/dL (74-118); LIPASE 204 U/L (8-78); POTASSIUM 3.4 mmol/L (3.5-5.1); SODIUM 143 mmol/L (136-145)
--- NOTE | 2019-02-24 14:11 | NUR ---
assisted pt to br via w/c.
--- NOTE | 2019-02-24 15:06 | Diagnostic Imaging Report ---
EXAM: Right upper quadrant abdominal ultrasound INDICATION: Right upper quadrant pain COMPARISON: CT abdomen pelvis of 02/24/2019 TECHNIQUE: Transverse and longitudinal images of the right upper quadrant abdomen were obtained FINDINGS: Liver: Size: 14.7 cm in the right midclavicular line, normal Appearance: Normal echogenicity, smooth contour Mass: No focal masses Gallbladder: Status post cholecystectomy. Bile Ducts: Intrahepatic Ducts: No dilatation Extrahepatic Ducts: Common bile duct measures 1.0cm, expected in the postoperative state. Pancreas: Visualized portions of the pancreatic head, neck and proximal body are normal. Kidney: The right kidney measures 9.9 cm without evidence of hydronephrosis or stone. Vessels: Aorta: Visualized portions are normal Inferior Vena Cava: Visualized portions are normal Main Portal Vein: 1.0 cm, normal size with hepatopetal flow. Free Fluid: No ascites or pleural effusion IMPRESSION: Status post cholecystectomy. No sonographic evidence of retained stone. Signed by: Gino Montes De Oca MD on 02/24/2019 3:02 PM
--- OUTSIDE RECORDS SUMMARY | 2019-02-24 15:14 | XMS REPORT | Continuity of Care Document ---
Author Author [employer] Address Unknown Phone Unavailable Care Team Providers Care Family Independence Case Manager Name Role Phone [facility] [employer] Information Exchange Unavailable Unavailable Problems Problem Status Onset Date Classification Date Reported Comments Source Malignant hypertension Active Problem 06/17/2018 [facility] Medications Medication Details Route Status Patient Instructions Ordering Provider Order Date Source Clonidine Hcl 0.3 Mg Tablet, 0.3 Mg Oral Four Times Daily Active 06/17/2018 [facility] Metoprolol Tartrate (Lopressor) 25 Mg Tab, 75 Mg Oral Daily Active 06/17/2018 [facility] Nebivolol Hcl (Bystolic) 10 Mg Tablet, 20 Mg Oral Twice A Day Active 06/17/2018 [facility] Amiodarone Hcl 200 Mg Tablet, Active 06/08/2018 [facility] Amlodipine Besylate 10 Mg Tablet, Active 06/08/2018 [facility] Tramadol Hcl (Ultram 50MG*) 50 Mg Tab, Active 06/08/2018 [facility] Clonidine Hcl 0.2 Mg Tablet, 0.2 Mg Oral 4 Times/Day Active 05/22/2017 [facility] Hydralazine Hcl 50 Mg Tablet, 50 Mg Oral Three Times A Day Active 05/22/2017 [facility] Isosorbide Dinitrate 30 Mg Tablet, 30 Mg Oral Daily Active 05/22/2017 [facility] Ca Cmb No.1/Vit D3/B-6/Fa/B12 (Vitamin D3 1,000 Unit Tablet) 1 Each Tablet, 1 Each Oral Daily Active 03/25/2013 [facility] Dronedarone (Multaq 400MG Tablets) 400 Mg Tab, 400 Mg G Tube as needed Active 03/25/2013 [facility] Duloxetine Hcl (Cymbalta) 30 Mg Capsule., 30 Mg Oral as needed Active 03/25/2013 [facility] Hydralazine Hcl 25 Mg Tablet, 25 Mg Oral Twice A Day Active 03/25/2013 [facility] Ibuprofen (Motrin) 800 Mg Tablet, 800 Mg Oral as needed Active 03/25/2013 [facility] Nebivolol Hcl (Bystolic) 10 Mg Tablet, 10 Mg Oral Daily Active 03/25/2013 [facility] Sheldahl-3 Fatty Acids/Fish Oil (Fish Oil 1,000 Mg Capsule) 1 Each Capsule, 1 Each Oral Daily Active 03/25/2013 [facility] Aspirin (Aspir 81) 81 Mg Tablet. [facility] Active [facility] Clopidogrel Bisulfate (Plavix) 75 Mg Tablet Daily Active [facility] Hydralazine Hcl 25 Mg Tab Three Times A Day Active [facility] Salonpas Active [facility] Allergies, Adverse Reactions, Alerts Substance Category Reaction Severity Reaction type Status Date Reported Comments Source Codeine N/V Mild Allergy to Substance Active 03/25/2013 [facility] Immunizations No Data Provided for This Section Results Order Name Results Value Reference Range Date Interpretation Comments Source Serum or plasma sodium measurement (moles/volume) 138 136 - 145 06/17/2018 [facility] Serum or plasma potassium measurement (moles/volume) 4.7 3.5 - 5.1 06/17/2018 [facility] Serum or plasma chloride measurement (moles/volume) 107 98 - 107 06/17/2018 [facility] Serum or plasma carbon dioxide, total measurement (moles/volume) 23 22 - 29 06/17/2018 [facility] Serum or plasma anion gap 12.7 8 - 16 06/17/2018 [facility] Serum or plasma urea nitrogen measurement (mass/volume) 33 7 - 26 06/17/2018 [facility] Serum or plasma creatinine measurement (mass/volume) 1.19 0.57 - 1.11 06/17/2018 [facility] Serum or plasma urea nitrogen/creatinine mass ratio 28 6 - 25 06/17/2018 [facility] Estimated glomerular filtration rate (GFR) determination 53 60 06/17/2018 [facility] Glucose measurement 120 74 - 118 06/17/2018 [facility] Serum or plasma calcium measurement (mass/volume) 9.6 8.4 - 10.2 06/17/2018 [facility] Serum or plasma total bilirubin measurement (mass/volume) 0.5 0.2 - 1.2 06/16/2018 [facility] Aspartate Amino Transf (AST/SGOT) 15 5 - 34 06/16/2018 [facility] Serum or plasma alanine aminotransferase measurement (enzymatic activity/volume) 11 0 - 55 06/16/2018 [facility] Serum or plasma protein measurement (mass/volume) 6.3 6.5 - 8.1 06/16/2018 [facility] Serum or plasma albumin measurement (mass/volume) 3.2 3.5 - 5.0 06/16/2018 [facility] Plasma globulin measurement (mass/volume) 3.1 2.3 - 3.5 06/16/2018 [facility] Serum or plasma albumin/globulin mass ratio 1.0 0.8 - 2.0 06/16/2018 [facility] Serum or plasma alkaline phosphatase measurement (enzymatic activity/volume) 41 40 - 150 06/16/2018 [facility] BNP Bld-mCnc 239.0 0 - 100 06/16/2018 [facility] Blood leukocytes automated count (number/volume) 12.25 4.8 - 10.8 06/15/2018 [facility] Blood erythrocytes automated count (number/volume) 3.77 3.6 - 5.1 06/15/2018 [facility] Blood hemoglobin measurement (moles/volume) 10.3 12.0 - 16.0 06/15/2018 [facility] Automated blood hematocrit (volume fraction) 31.8 34.2 - 44.1 06/15/2018 [facility] Automated erythrocyte mean corpuscular volume 84.4 81 - 99 06/15/2018 [facility] Automated erythrocyte mean corpuscular hemoglobin (mass per erythrocyte) 27.3 28 - 32 06/15/2018 [facility] Automated erythrocyte mean corpuscular hemoglobin concentration measurement (mass/volume) 32.4 31 - 35 06/15/2018 [facility] RDW BldCo-Rto 15.6 11.7 - 14.4 06/15/2018 [facility] Automated blood platelet count (count/volume) 225 140 - 360 06/15/2018 [facility] Automated blood segmented neutrophil count as percentage of total leukocytes 63.3 38.7 - 80.0 06/15/2018 [facility] Automated blood lymphocyte count as percentage ot total leukocytes 18.6 18.0 - 39.1 06/15/2018 [facility] Automated blood monocyte count as percentage of total leukocytes 9.6 4.4 - 11.3 06/15/2018 [facility] Automated blood eosinophil count as percentage of total leukocytes 7.4 0.0 - 6.0 06/15/2018 [facility] Automated blood basophil count as percentage of total leukocytes 0.6 0.0 - 1.0 06/15/2018 [facility] IM GRANULOCYTES % 0.5 0.0 - 1.0 06/15/2018 [facility] Automated blood neutrophil count 7.8 2.1 - 6.9 06/15/2018 [facility] Blood lymphocytes count (number/volume) 2.3 1.0 - 3.2 06/15/2018 [facility] Blood monocytes automated count (number/volume) 1.2 0.2 - 0.8 06/15/2018 [facility] Automated blood eosinophil count 0.9 0.0 - 0.4 06/15/2018 [facility] Automated blood basophil count (count/volume) 0.1 0.0 - 0.1 06/15/2018 [facility] Absolute Immature Granulocyte (auto 0.06 0 - 0.1 06/15/2018 [facility] Serum or plasma uric acid measurement (mass/volume) 6.1 2.6 - 8.0 06/14/2018 [facility] Urine color determination YELLOW YELLOW 06/13/2018 [facility] Urine clarity CLEAR CLEAR 06/13/2018 [facility] Specific gravity of Urine by Test strip 1.020 1.010 - 1.025 06/13/2018 [facility] Urine pH measurement by automated test strip 6 5 - 7 06/13/2018 [facility] Urine leukocyte esterase detection by dipstick NEGATIVE NEGATIVE 06/13/2018 [facility] Urine nitrite detection NEGATIVE NEGATIVE 06/13/2018 [facility] Urine protein measurement by test strip (mass/volume) 2+ NEGATIVE 06/13/2018 [facility] Urine glucose detection NEGATIVE NEGATIVE 06/13/2018 [facility] Urine ketones detection by automated test strip NEGATIVE NEGATIVE 06/13/2018 [facility] Urine urobilinogen measurement by test strip (mass/volume) 0.2 0.2 - 1 06/13/2018 [facility] Urine total bilirubin measurement (mass/volume) NEGATIVE NEGATIVE 06/13/2018 [facility] Urine erythrocytes detection NEGATIVE NEGATIVE 06/13/2018 [facility] Automated urine sediment leukocyte count by microscopy (number/high power field) 0-5 0 - 5 06/13/2018 [facility] Erythrocytes detection in urine sediment by light microscopy 6-10 0 - 5 06/13/2018 [facility] Bacteria detection in urine sediment by light microscopy MANY NONE 06/13/2018 [facility] Epithelial cells detection in urine sediment by light microscopy FEW NONE 06/13/2018 [facility] Hyaline casts detection in urine sediment by light microscopy 2-5 0 - 1 06/13/2018 [facility] Urine protein measurement (mass/volume) 131.6 1 - 14 06/13/2018 [facility] Urine creatinine measurement (mass/volume) 126.82 47 - 110 06/13/2018 [facility] Random urine protein/creatinine ratio 1.00 06/13/2018 [facility] Serum or plasma magnesium measurement (mass/volume) 2.1 1.3 - 2.1 06/13/2018 [facility] Phosphorus measurement 2.5 2.3 - 4.7 06/11/2018 [facility] Serum or plasma creatine kinase measurement (enzymatic activity/volume) 118 29 - 168 06/08/2018 [facility] Serum or plasma creatine kinase MB measurement (mass/volume) 1.30 0 - 5.0 06/08/2018 [facility] Troponin I measurement by highly sensitive enzyme immunoassay 0.052 0 - 0.300 06/08/2018 [facility] Plasma renin measurement (enzymatic activity/volume) <0.167 0.167 - 5.380 06/08/2018 [facility] Pathology Reports No Data Provided for This [...] Date DC Date Status Source Discharged Inpatient [id number] JOSEPH SHARMA MD 06/08/2018 06/17/2018 [facility] Procedures Procedure Code Date Perfomer Comments Source Ultrasound, renal [id number] 06/13/2018 [facility] Computed tomography of lumbar spine without contrast [id number] 06/11/2018 [facility] US Doppler renal vessels limited [id number] 06/08/2018 [facility] Computed tomography of brain without radiopaque contrast [id number] 06/08/2018 [facility] Assessment and Plan No Data Provided for This Section Plan of Care Plan of Care Date Source Discharge Date 06/17/18 5:20pm Disposition HOME, SELF-CARE Instructions/Education Provided Hypertension Prescriptions See Medication Section Additional Instructions/Education follow up with pcp in 1week 06/17/2018 [facility] Social History Social History Date Source Smoking Status Start Date Stop Date Never Smoker 06/17/2018 [facility] Family History No Data Provided for This Section Advance Directives Order Name Results Value Date Source Advance Directives Advance Directives Directive Response Recorded Date/Time Does the patient have an advance directive? No 06/08/18 5:29pm If yes, is advance directive on file with [facility]? No 06/08/18 5:29pm If not on file with [facility] will patient provide a copy? No 06/08/18 5:29pm Do you have a Directive to Physician? No 06/08/18 9:55am Do you have a Medical Power of Refrigeration Mechanic? No 06/08/18 9:55am Do you have an [...] rights and responsibilities? Yes 06/08/18 9:55am 06/17/2018 [facility] Functional Status No Data Provided for This Section
--- NOTE | 2019-02-24 15:48 | NUR ---
pt. updated on pending admit/poc.
--- NOTE | 2019-02-24 16:37 | NUR ---
PT WANTS TO LEAVE AT THIS TIME. DEEDEE RENDON NP INFORMED
--- NOTE | 2019-02-24 16:51 | NUR ---
PT HAS REQUESTED A PHONE TO CALL FAMILY TO SPEAK WITH THEM RE ADMIT
--- NOTE | 2019-02-24 17:05 | NUR ---
AFTER TALKING TO FAMILY; PT HAS DECIDED TO STAY.
[2019-02-24 17:37] VITALS: BP 184/75
[2019-02-24 18:02] VITALS: BP 184/75
[2019-02-24 18:17] VITALS: BP 184/75
--- NOTE | 2019-02-24 19:10 | NUR ---
Pt visited in room during nursing rounds. Patient alert and oriented x3. No distress or discomfort noted at this time. Son at bedside visiting. Pt ambulatory with standby assist using her rolling walker. Call suh within reach. Will monitor closely.
[2019-02-24 20:15] VITALS: BP 161/70
[2019-02-24] MEDS ORDERED: MORPHINE SULFATE 2 MG/ML SYR 1ML IV PRN (20:45)
[2019-02-24] MEDS ORDERED: PROMETHAZINE 12.5MG/ NACL 0.9% 12.5 MG/50 ML BAG IV PRN (20:45)
[2019-02-24] MEDS ORDERED: IBUPROFEN 200 MG TAB PO PRN (20:45)
[2019-02-24] MEDS ORDERED: POTASSIUM CHLO10 ME1 PO (20:46)
[2019-02-24] MEDS ORDERED: METOPROLOL SUCC50 MG PO (20:46)
[2019-02-24] MEDS ORDERED: PRAVASTATIN SOD20 MG PO (20:46)
[2019-02-24] MEDS ORDERED: GABAPENTIN100 MG PO (20:46)
[2019-02-24] MEDS ORDERED: ACETAMINOPHEN325 M1 PO (20:46)
[2019-02-24] MEDS ORDERED: LASIX40 MG PO (20:46)
[2019-02-24] MEDS ORDERED: NIFEDIPINE10 MG PO (20:46)
--- NOTE | 2019-02-24 20:46 | NUR ---
Called Dr. Mireles to inform him about patient condition and that there were no med orders at this time. Informed MD that pt has vomited earlier tonight. MD aware and ordered IVF (NS at 125ml/hr), Zofran 4mg IV Q6hr prn, etc...
[2019-02-24] MEDS ORDERED: ASPIRIN 81 MG PO SCH (21:00)
[2019-02-24] MEDS ORDERED: FUROSEMIDE 40 MG TAB PO PRN (21:00)
[2019-02-24] MEDS ORDERED: ASPIRIN 81 MG CHEW TAB PO SCH (21:15)
[2019-02-24] MEDS ORDERED: PROMETHAZINE 12.5MG/ NACL 0.9% 50 ML IV PRN (21:15)
[2019-02-24] MEDS: PRAVASTATIN 20 MG TAB PO SCH (21:28)
[2019-02-24] MEDS: ONDANSETRON HCL INJ 2MG/ML 2ML 2 MG/ML VIAL IV PRN (21:28)
[2019-02-24] MEDS: SODIUM CHLORIDE 0.9% 1000ML 1,000 ML IV SCH (21:28)
[2019-02-24] MEDS: METOPROLOL SUCCINATE 50 MG TAB XL PO SCH (21:29)
--- NOTE | 2019-02-24 21:30 | NUR ---
PATIENT VOMITED MODERATE AMOUNT OF YELLOW EMESIS, SHE HAD NO ORDER FOR ANTINAUSEA MEDICATION. PRIMARY NURSE SPOKE WITH DR NEVAREZ REGARDING THE PATIENT'S CONDITION, NEW ORDERS RECEIVED. PATIENT MEDICATED WITH ZOFRAN ORDERED, IV FLUID INFUSING, BED ALARM ON AND PATIENT INSTRUCTED TO CALL FOR ASSISTANCE NEEDED. PRIMARY NURSE MADE AWARE THAT THE PATIENT HAS BEEN MEDICATED WITH ZOFRAN AND HER NIGHT MEDICATION HAS ALSO BEEN ADMINISTERED ORDERED.
[2019-02-24] MEDS: ASPIRIN 81 MG CHEW TAB PO SCH (22:04)
[2019-02-25] VITALS (9 sets, daily range): BP systolic 126–175; BP diastolic 58–79
--- NOTE | 2019-02-25 00:29 | NUR ---
Dr. Sebastian Aguilar came and visited the patient during rounds. explained to patient possibility of stones present in common bile duct and to confirm MRCP might be necessary. Pt informed Dr. Aguilar she's not comfortable with MRI tests. Pt also requested if she could see her own GI doctor, Dr. Chicas, instead. (Dr. Juan Carlos Aguilar) aware and wrote in chart that he has signed off on the patient and suggested to consult Dr. Chicas or any of her team to continue care for patient.
[2019-02-25 06:34] LABS: BASOPHILS % 0.3 % (0.0-1.0); EOSINOPHILS # (AUTO) 0.2 (0.0-0.4); EOSINOPHILS % 3.2 % (0.0-6.0); HEMATOCRIT 32.2 % (34.2-44.1); HEMOGLOBIN 10.5 g/dL (12.0-16.0); LYMPHOCYTES # (AUTO) 2.2 (1.0-3.2); LYMPHOCYTES % 30.4 % (18.0-39.1); MEAN CORPUSCULAR HEMOGLOBIN 28.6 pg (28-32); MEAN CORPUSCULAR HGB CONC 32.6 g/dL (31-35); MEAN CORPUSCULAR VOLUME 87.7 fL (81-99); MONOCYTES # (AUTO) 0.6 (0.2-0.8); MONOCYTES % 7.9 % (4.4-11.3); NEUTROPHILS # (AUTO) 4.1 (2.1-6.9); NEUTROPHILS % 58.1 % (38.7-80.0); PLATELET COUNT 172 x10e3/uL (140-360); RED BLOOD COUNT 3.67 x10e6/uL (3.6-5.1); RED CELL DISTRIBUTION WIDTH 14.5 % (11.7-14.4)
--- NOTE | 2019-02-25 06:56 | NUR ---
RECEIVED PATIENT RESTING IN BED. NO ACUTE DISTRESS NOTED. DENIES PAIN OR DISCOMFORT AT THIS TIME. CALL LIGHT WITHIN REACH. BED IN THE LOWEST POSITION.
[2019-02-25 06:57] LABS: ALANINE AMINOTRANSFERASE 284 IU/L (0-55); ALBUMIN 3.3 g/dL (3.5-5.0); ALKALINE PHOSPHATASE 146 IU/L (40-150); ANION GAP 12.1 mmol/L (8-16); BLOOD UREA NITROGEN 11 mg/dL (7-26); BUN/CREATININE RATIO 14 (6-25); CALCIUM 9.6 mg/dL (8.4-10.2); CARBON DIOXIDE 25 mmol/L (22-29); CHLORIDE 109 mmol/L (98-107); CREATININE, SERUM 0.78 mg/dL (0.57-1.11); EST GLOMERULAR FILTRATION RATE > 60 ML/MIN (60-); GLUCOSE 78 mg/dL (74-118); POTASSIUM 3.1 mmol/L (3.5-5.1); SODIUM 143 mmol/L (136-145)
[2019-02-25] MEDS: SODIUM CHLORIDE 0.9% 1000ML 1,000 ML IV SCH ×3 (07:20→23:43)
[2019-02-25] MEDS: CLOPIDOGREL BISULFATE 75 MG TAB PO SCH (08:57)
[2019-02-25] MEDS: METOPROLOL SUCCINATE 50 MG TAB XL PO SCH ×2 (08:57→16:30)
[2019-02-25] MEDS: ASPIRIN 81 MG CHEW TAB PO SCH ×2 (08:57→20:26)
[2019-02-25] MEDS: GABAPENTIN 100 MG CAP PO SCH (08:58)
[2019-02-25] MEDS ORDERED: NIFEDIPINE CR 30 MG TAB PO SCH (09:00)
[2019-02-25] MEDS ORDERED: NIFEDIPINE 10 MG CAP PO SCH (09:00)
--- NOTE | 2019-02-25 12:58 | NUR ---
CALLED DR. NEVAREZ TO NOTIFY THAT PATIENT IS COMPLAINING ABOUT BEING ON CLEAR LIQUID DIET AND GI SIGNING OFF CARE. NO ANSWER, LVM.
[2019-02-25] MEDS ORDERED: POTASSIUM CHLORIDE 20 MEQ TAB CR PO NR (15:00)
[2019-02-25] MEDS: SUCRALFATE 1 GM TAB PO SCH ×2 (16:30→20:26)
[2019-02-25] MEDS ORDERED: ENOXAPARIN SOD INJ 40 MG/0.4 ML SYR SC SCH (17:00)
--- NOTE | 2019-02-25 18:25 | Consultation ---
DATE OF CONSULTATION: 02/25/2019 Urology Consultation REASON FOR CONSULTATION: Renal mass. HISTORY OF PRESENT ILLNESS: Bushra Villalobos is an 83-year-old woman with both stress and urge type urinary incontinence. The patient was admitted with hypertension and CT scanning revealed a lesion in the right kidney and urological consultation was sought. The patient denies previous urological surgeries and denies any previous urological history. The patient denies urinary tract infections. She denies any hematuria. PAST MEDICAL AND SURGICAL HISTORY: 1. Status post low back surgery. 2. Status post cholecystectomy. 3. Status post total abdominal hysterectomy and bilateral salpingo-oophorectomy. 4. Status post right total knee arthroplasty. 5. 12, para 9, miscarriage 3. ALLERGIES: CODEINE. CURRENT MEDICATIONS: Please refer to the MAR. FAMILY HISTORY: Noncontributory to the active urological problems. CURRENT MEDICATIONS: Please refer to the MAR. SOCIAL HISTORY: The patient denies smoking, ethanol or drug use. The patient used to work for [employer]. REVIEW OF SYSTEMS: Discussed as above in the history of present illness and past medical history, otherwise negative for all systems. PHYSICAL EXAMINATION: GENERAL: Very pleasant 83-year-old woman walking around the room, in no apparent distress. She is currently afebrile. VITAL SIGNS: Currently stable. ABDOMEN: Soft, nondistended, nontender without costovertebral angle tenderness. Kidneys are not palpable without hepatosplenomegaly. No obvious evidence of hernia. For the remaining physical examination systems, please refer to the admission history and physical in the chart and ERT sheet. LABORATORY STUDIES: CT scan of the abdomen and pelvis revealed a 1.5 cm exophytic lesion greater than density. It also demonstrated diverticulosis. White blood cell count is 7130, hemoglobin 10.5, platelets 179,000. The patient's potassium is low at 3.1. Urinalysis significant for 6-10 wbc's with moderate bacteria. No urine culture was done. Abdominal ultrasound reveals that the patient is status post cholecystectomy, but this right upper quadrant ultrasound did not evaluate the right renal mass noted on CT. ASSESSMENT: 1. Mixed type urinary incontinence. 2. Right renal mass. 3. Anemia. 4. Hypokalemia. 5. Possible urinary tract infection. PLAN: 1. I will call the lab to see if they can add a urine culture to the urinalysis from the ER. If not, urine culture and sensitivity will be ordered on the catheterized specimen. 2. The patient will follow up for urodynamic study in the office. 3. Ongoing urological followup will be required to follow up on this mass. The patient did have renal ultrasound that was negative in June 2018. Thank you very much for involving us in care of your patient. We will be happy to follow along with you as well as an outpatient. Magdiel Geller MD [place]/MODL /[id number] cc: Magdiel Geller MD
--- NOTE | 2019-02-25 18:53 | NUR ---
REPORT GIVEN TO ONCOMING NURSE, WALKING ROUNDS DONE. NO ACUTE DISTRESS NOTED. CALL LIGHT WITHIN REACH. BED IN THE LOWEST POSITION.
--- NOTE | 2019-02-25 18:55 | NUR ---
PT IS RESTING IN BED. RESPIRATION IS EVEN AND UNLABORED, NO DISTRESS NOTED. BED IN THE LOWEST POSITION, LOCKED, AND CALL LIGHT WITHIN REACH. WILL CONTINUE TO MONITOR.
--- NOTE | 2019-02-25 19:19 | NUR ---
PT REFUSE HER TROPONIN LAB DRAW. EDUCATED PT ON HAVING HER LAB DRAWN BUT PT STILL REFUSE. WILL CONTINUE TO MONITOR.
--- NOTE | 2019-02-25 19:36 | History and Physical ---
CHIEF COMPLAINT: Abdominal pain. HISTORY OF PRESENT ILLNESS: This is an 83-year-old female, who has a past medical history of peripheral neuropathy, hypertension, hyperlipidemia, who presents to the ED with complaints of abdominal pain ongoing for the last 1-2 days. The patient reports that she recently had an EGD and colonoscopy several months ago, found to be negative. She also had a recent CT back in December of this year found to be negative as well. The patient presents to us, stated having underlying nausea and abdominal pain. Denies any vomiting, diarrhea, dysuria, hematuria, or any kind of hematochezia or melena. She reports that the pain has been ongoing for the last couple of days and has been on and off with pain. GI was consulted in which she was evaluated by, but instead wanted to see her primary GI specialist, who does not come to this facility. Further imaging studies found to have a renal mass, exophytic lesion, which will need further evaluation by Urology. The patient is seen and evaluated at bedside on the medical floor, currently she is doing well with no other issues at this time. REVIEW OF SYSTEMS: Pertinent positives: Abdominal pain, nausea, decreased oral intake. Pertinent negatives: Denies any chest pain, palpitation, dysuria, hematuria, frequency, urgency, lightheadedness, dizziness, headaches, shortness of breath, cough, congestion, fever, or any other complaints. The rest of the 14-point review of systems are reviewed with the patient and are negative. ALLERGIES: CODEINE. HOME MEDICATIONS: Aspirin 81 mg p.o. b.i.d., Plavix 75 mg daily, Lasix 40 mg as needed, daily, metoprolol ER 100 mg p.o. b.i.d., nifedipine 30 mg p.o. b.i.d., and atorvastatin 20 mg daily. PAST MEDICAL HISTORY: Peripheral neuropathy, hypertension, hyperlipidemia, and abdominal pain. PAST SURGICAL HISTORY: Reports none. FAMILY HISTORY: Hypertension and diabetes. SOCIAL HISTORY: No drugs or alcohol. Does not smoke. Good social support. PHYSICAL EXAMINATION: VITAL SIGNS: Temperature is 97.4, pulse 57, respiratory rate is 18, blood pressure 143/66, and pulse oxymetry 98% on room air. GENERAL: Not in acute distress, alert and oriented x3. Cooperative on examination. HEENT: Head is normocephalic and atraumatic. Eyes; pupils are equal, round, and reactive bilaterally. Extraocular movements are intact. Throat, no evidence of erythema or exudates in the posterior pharynx. Has poor dentition. NECK: Supple. Good range of motion. PULMONARY: Clear to auscultation bilaterally. No wheezing, no rales, no rhonchi, no crackles appreciated. CARDIOVASCULAR: S1, S2. No murmurs. ABDOMEN: Soft, nondistended, and nontender to palpation. Bowel sounds present. MUSCULOSKELETAL: Strength is 5/5 throughout. No evidence of any muscles deficits on examination. No weakness appreciated. NEUROLOGICAL: Cranial nerves II through XII grossly intact. No evidence of any neurological deficits on exam. SKIN: Intact. Warm to touch. Good cap refill. PSYCHIATRIC: Normal affect and mood. EXTREMITIES: No edema. Good range of motion throughout. LABORATORY DATA: Lab findings show white count 7.1, hemoglobin 10.5, hematocrit 32, and platelets 172. Chemistry; sodium 143, potassium 3.1, chloride 109, bicarb 25, anion gap is 12, BUN is 11, creatinine is 0.78, glucose is 78, calcium is 9.6, total bilirubin is 0.8. AST on admission 839, now 391, ALT on admission 368, now 384. Alkaline phosphatase 157, now 146. Troponins are negative. Albumin 3.3, lipase is 204. Urinalysis, 2+ protein, 6 to 10 wbc's, moderate bacteria. MICROBIOLOGY: None. IMAGING STUDIES: Abdominal ultrasound shows status post cholecystectomy. Otherwise, negative right upper quadrant ultrasound. The pancreas within normal range. Chest x-ray is low lung volumes, patchy opacity in the left lung base, may represent . CT abdomen and pelvis shows right and left diverticulosis, no CT evidence of diverticulitis. There is a right posterior renal mid pole 1.5 cm, exophytic lesion with . Followup recommends CT renal mass protocol or a renal ultrasound is recommended. Multi-chamber cardiomegaly, coronary artery atherosclerosis classification. IMPRESSION: 1. Epigastric abdominal pain with underlying elevated transaminases. Transaminases now down trending. 2. Mild pancreatitis, resolved. PLAN: 1. Electrolyte abnormalities. 2. Exophytic lesion found on the right posterior part of the renal mass on the kidney. 3. Hypertension. 4. Hyperlipidemia. PLAN: At this time, LFTs are down trending. Imaging studies performed, found to be no evidence of any obstruction. Of note, the patient had cholecystectomy. The etiology of her elevated transaminases are unknown. She did not want to do what the GI specialist said and she wants to follow up with her primary GI doctor. Her LFTs are down trending, and if they continue to downtrend like this, we will discharge tomorrow. renal mass seen on the CT on the right kidney. I discussed the importance of following as an outpatient as I do not know the etiology or cause of this particular renal mass. At this time, we will go ahead and get Urology just for outpatient followup and close monitoring, but she could still follow up with him as an outpatient. At this moment, we are going to resume same home medications. We are going to see if her creatinine improved by tomorrow, if it does she is cleared to be discharged home with close followup with urologist and a GI specialist. MD MARY Lockett/IVDAL /[id number]
[2019-02-25] MEDS: NIFEDIPINE CR 30 MG TAB PO SCH (20:26)
[2019-02-25] MEDS: PRAVASTATIN 20 MG TAB PO SCH (20:26)
[2019-02-26] MEDS: ONDANSETRON HCL INJ 2MG/ML 2ML 2 MG/ML VIAL IV PRN (02:01)
[2019-02-26 04:43] VITALS: BP 158/69
[2019-02-26 06:08] LABS: BASOPHILS # (AUTO) 0.1 (0.0-0.1); BASOPHILS % 0.7 % (0.0-1.0); EOSINOPHILS # (AUTO) 0.3 (0.0-0.4); EOSINOPHILS % 4.7 % (0.0-6.0); HEMATOCRIT 32.8 % (34.2-44.1); HEMOGLOBIN 10.5 g/dL (12.0-16.0); LYMPHOCYTES # (AUTO) 2.7 (1.0-3.2); LYMPHOCYTES % 36.9 % (18.0-39.1); MEAN CORPUSCULAR HEMOGLOBIN 28.5 pg (28-32); MEAN CORPUSCULAR VOLUME 88.9 fL (81-99); MONOCYTES # (AUTO) 0.6 (0.2-0.8); MONOCYTES % 7.6 % (4.4-11.3); NEUTROPHILS # (AUTO) 3.6 (2.1-6.9); PLATELET COUNT 173 x10e3/uL (140-360); RED BLOOD COUNT 3.69 x10e6/uL (3.6-5.1); RED CELL DISTRIBUTION WIDTH 14.6 % (11.7-14.4)
[2019-02-26 06:38] LABS: ALANINE AMINOTRANSFERASE 187 IU/L (0-55); ALBUMIN 3.4 g/dL (3.5-5.0); ALKALINE PHOSPHATASE 143 IU/L (40-150); ANION GAP 11.5 mmol/L (8-16); BLOOD UREA NITROGEN 8 mg/dL (7-26); BUN/CREATININE RATIO 11 (6-25); CALCIUM 9.7 mg/dL (8.4-10.2); CARBON DIOXIDE 24 mmol/L (22-29); CHLORIDE 107 mmol/L (98-107); CREATININE, SERUM 0.74 mg/dL (0.57-1.11); EST GLOMERULAR FILTRATION RATE > 60 ML/MIN (60-); GLUCOSE 82 mg/dL (74-118); LIPASE 22 U/L (8-78); POTASSIUM 3.5 mmol/L (3.5-5.1); SODIUM 139 mmol/L (136-145)
--- NOTE | 2019-02-26 06:58 | NUR ---
RECEIVED PATIENT RESTING IN BED. NO ACUTE DISTRESS NOTED. CALL LIGHT WITHIN REACH. BED IN THE LOWEST POSITION.
[2019-02-26 07:26] VITALS: BP 180/76
[2019-02-26] MEDS ORDERED: PANTOPRAZOLE SOD 40 MG TABEC PO SCH (07:30)
[2019-02-26 08:00] VITALS: BP 180/76
[2019-02-26] MEDS: SUCRALFATE 1 GM TAB PO SCH ×2 (08:03→11:26)
[2019-02-26] MEDS: CLOPIDOGREL BISULFATE 75 MG TAB PO SCH (09:33)
[2019-02-26] MEDS: METOPROLOL SUCCINATE 50 MG TAB XL PO SCH (09:33)
[2019-02-26] MEDS: GABAPENTIN 100 MG CAP PO SCH (09:33)
[2019-02-26] MEDS: ASPIRIN 81 MG CHEW TAB PO SCH (09:33)
[2019-02-26] MEDS: NIFEDIPINE CR 30 MG TAB PO SCH (09:33)
[2019-02-26 11:37] VITALS: BP 152/67
[2019-02-26 15:25] VITALS: BP 159/73
--- NOTE | 2019-02-26 15:50 | NUR ---
RECEIVED DC ORDER FROM MD. PATIENT IS IN STABLE CONDITION. IV LINE TO LEFT FOREARM DCD WITH TIP INTACT, PRESSURE APPLIED TO SITE, NO BLEEDING NOTED. DISCHARGE TEACHING PROVIDED TO PATIENT, SHE VERBALIZED UNDERSTANDING. DISCHARGE FOLDER WITH PRESCRIPTION AND PERSONAL ITEMS ON HAND. PATIENT ACCOMPANIED TO PRIVATE AUTO VIA WHEELCHAIR BY STAFF.
--- NOTE | 2019-02-27 02:06 | Discharge Summary ---
FINAL DISCHARGE DIAGNOSES: 1. Epigastric abdominal pains, presumably underlying gastritis. 2. Elevated transaminases, down trended prior to being discharged to home. 3. Mild pancreatitis, resolved. 4. Exophytic lesion found on the right posterior part of the right renal mass. 5. Hypertension. 6. Hyperlipidemia. 7. Electrolyte abnormalities. CONSULTANTS: Urology and GI. PHYSICAL EXAMINATION: VITAL SIGNS: Temperature is 98.2, pulse 53, respiratory rate is 18, blood pressure 153/67, and pulse ox 98% on room air. LABORATORY FINDINGS: White count 7.1, hemoglobin 10.5, hematocrit 32.8, platelets of 173. Chemistry; sodium 139, potassium 3.5, chloride 107, bicarb 24, anion gap is 11, BUN is 8, creatinine is 0.74, calcium is 9.7, total bilirubin 0.5. AST on admission was 839 down trended to 160. ALT on admission was 368 down trended to 180s. Alkaline phosphatase was 157 down trended to 143. CK was 110. Troponins were all negative. Albumin was 3.4, lipase was 204 on admission, now 22. Urinalysis was negative. MICROBIOLOGY: Urine culture negative. IMAGING STUDIES: Abdominal ultrasound, status post cholecystectomy. No sonographic evidence of retained stone. Chest x-ray shows low lung volumes, patchy opacity in the left lung base, may represent subsegmental atelectasis, however, superimposed on inflammation and pneumonia. Also have appearance of clinical setting. There is a cardiomegaly seen. CT abdomen and pelvis shows a right and left-sided diverticulosis. There is no evidence of diverticulitis. There was a right posterior mid pole 1.5 cm exophytic lesion with greater than renal parenchymal echogenicity, may represent a soft tissue mass versus hypodense cyst. Urology was consulted and followup as an outpatient with Neuro as well. HOSPITAL COURSE: This is an 83-year-old female with complaints of abdominal pain, found to have elevated transaminases in lipase levels, requiring GI consultation. GI seen and talked with the patient to do further workup, but the patient refused and wanted to see her primary GI specialist. Her primary GI specialist does not come to this facility, instead our GI specialist signed off and wanted her to followup with the primary GI specialist. Her LFTs down trended tremendously while here as well as her lipase levels. Her symptoms all resolved. She was found to have an incidental finding of the right renal mass, requiring Urology consultation. Dr. Geller was consulted and he recommended outpatient followup in his office. At this time, the patient is cleared for discharge to home and has been cleared by all consultants for discharge to home. On the day of discharge, vital signs were stable. Labs reviewed and stable. The patient was seen and evaluated, examined thoroughly on the day of discharge. No other complaints. The patient verbalized understanding and agreed with plan of care to follow up as an outpatient with primary care physician in 1 week, her GI specialist in 1 week, and neurologist in 2 weeks' time. The patient symptoms resolved and she was back to normal baseline. MEDICATIONS: See med reconciliation form. DISPOSITION: Home. CONDITION: Stable. DIET: Heart healthy. In the event of any worsening symptoms, the patient was advised to come back to the ED for further evaluation. Discharge summary took greater than 35 minutes. MD MARY Lockett/PEGGYL /[id number]
== END 2019-02-26 15:51 | disposition home or self-care (01) ==
LOC: ER 10:33 → ERHOLD 15:12 → MED/SURG3 17:18
PROVIDERS: ADMIT Internal Medicine; ATTEND Internal Medicine
DX: K85.90 Acute pancreatitis without necrosis or infection, unspecified (principal); R10.13 Epigastric pain; G62.9 Polyneuropathy, unspecified; I10 Essential (primary) hypertension; E78.5 Hyperlipidemia, unspecified; R74.0 Nonspecific elevation of levels of transaminase and lactic acid dehydrogenase [LDH]; N28.89 Other specified disorders of kidney and ureter; Z88.5 Allergy status to narcotic agent; D64.9 Anemia, unspecified; N39.0 Urinary tract infection, site not specified; N39.46 Mixed incontinence; Z96.651 Presence of right artificial knee joint; E87.6 Hypokalemia; Z90.49 Acquired absence of other specified parts of digestive tract
CPT/HCPCS: 36415 ×3; 71045; 74176; 76705; 80053 ×3; 81001; 82150; 82550; 82553; 83690 ×2; 84484 ×2; 85025 ×3; 87086; 93005; 99284; G0378 ×3; J1650; J2270; J2405 ×2; J7030 ×2; S0164

== ENCOUNTER 2019-09-25 14:27 | Emergency (ER) | payer MEDICARE, OTHER ==
[~2019-09-25] VITALS: Ht 167.6 cm; Wt 72.6 kg
[~2019-09-25 14:27] MED LIST changes: +ACETAMINOPHEN325 M1 PO; +GABAPENTIN100 MG PO; +LASIX40 MG PO; +METOPROLOL SUCC50 MG PO; +NIFEDIPINE10 MG PO; +POTASSIUM CHLO10 ME1 PO; +PRAVASTATIN SOD20 MG PO
--- NOTE | 2019-09-25 15:24 | Diagnostic Imaging Report ---
EXAMINATION: CHEST SINGLE (PORTABLE) INDICATION: Tachycardia COMPARISON: Chest radiograph 02/24/2019 FINDINGS: LINES/TUBES:EKG leads overlie the chest. LUNGS:The lungs are moderately inflated. No focal consolidation or pulmonary edema. PLEURA:No pleural effusion or pneumothorax. MEDIASTINUM:The cardiomediastinal silhouette appears unchanged in size and shape. Atherosclerotic calcifications of the thoracic aorta. BONES/SOFT TISSUES:No acute osseous injury. Degenerative changes of both glenohumeral joints. ABDOMEN:No free air under the diaphragm. IMPRESSION: No focal pneumonia or pulmonary edema. Unchanged mild cardiomegaly. Signed by: Gino Montes De Oca MD on 09/25/2019 3:22 PM
[2019-09-25 15:40] LABS: BASOPHILS # (AUTO) 0.1 (0.0-0.1); BASOPHILS % 0.7 % (0.0-1.0); EOSINOPHILS # (AUTO) 0.2 (0.0-0.4); EOSINOPHILS % 2.2 % (0.0-6.0); HEMOGLOBIN 10.3 g/dL (12.0-16.0); LYMPHOCYTES # (AUTO) 2.4 (1.0-3.2); LYMPHOCYTES % 31.6 % (18.0-39.1); MEAN CORPUSCULAR HEMOGLOBIN 27.9 pg (28-32); MEAN CORPUSCULAR HGB CONC 32.2 g/dL (31-35); MEAN CORPUSCULAR VOLUME 86.7 fL (81-99); MONOCYTES # (AUTO) 0.5 (0.2-0.8); MONOCYTES % 6.4 % (4.4-11.3); NEUTROPHILS # (AUTO) 4.5 (2.1-6.9); PLATELET COUNT 200 x10e3/uL (140-360); RED BLOOD COUNT 3.69 x10e6/uL (3.6-5.1)
[2019-09-25 15:50] LABS: INR 1.04; PROTHROMBIN TIME 14.2 seconds (11.9-14.5)
[2019-09-25 15:51] LABS: PARTIAL THROMBOPLASTIN TIME 32.6 seconds (23.8-35.5)
[2019-09-25 17:09] LABS: CLARITY,URINE MUCOUS (CLEAR); COLOR,URINE YELLOW (YELLOW); LEUKOCYTE ESTERASE ,URINE NEGATIVE (NEGATIVE); URINE UROBILINOGEN 0.2 mg/dL (0.2 - 1)
[2019-09-25 17:10] LABS: BILIRUBIN,URINE NEGATIVE (NEGATIVE); KETONES,URINE NEGATIVE (NEGATIVE); NITRITE,URINE NEGATIVE (NEGATIVE); PROTEIN,URINE DIPSTICK NEGATIVE (NEGATIVE)
[2019-09-25 17:18] LABS: ALBUMIN 3.7 g/dL (3.5-5.0); ALBUMIN/GLOBULIN RATIO 1.2 (0.8-2.0); ALKALINE PHOSPHATASE 64 IU/L (40-150); ANION GAP 9.6 mmol/L (8-16); BLOOD UREA NITROGEN 16 mg/dL (7-26); BUN/CREATININE RATIO 14 (6-25); CALCIUM 9.6 mg/dL (8.4-10.2); CARBON DIOXIDE 27 mmol/L (22-29); CHLORIDE 109 mmol/L (98-107); CREATINE KINASE 73 IU/L (29-168); CREATININE, SERUM 1.17 mg/dL (0.57-1.11); EST GLOMERULAR FILTRATION RATE 54 ML/MIN (60-); GLUCOSE 95 mg/dL (74-118); POTASSIUM 3.6 mmol/L (3.5-5.1); SODIUM 142 mmol/L (136-145)
[2019-09-25 17:19] LABS: BACTERIA,URINE FEW /HPF; EPITHELIAL CELLS,URINE FEW /LPF; RBC,URINE 0-5 /HPF (0-5)
[2019-09-25 17:20] LABS: ALANINE AMINOTRANSFERASE < 6 IU/L (0-55)
== END 2019-09-25 18:47 | disposition home or self-care (01) ==
LOC: ER 14:27
DX: R07.89 Other chest pain (principal); R00.2 Palpitations; I10 Essential (primary) hypertension; K21.9 Gastro-esophageal reflux disease without esophagitis
CPT/HCPCS: 36415; 71045; 80053; 81001; 82550; 82553; 83880; 84484; 85025; 85610; 85730; 93005; 99284

== ENCOUNTER 2021-04-29 15:54 | Emergency (ER) | payer MEDICARE, OTHER ==
[~2021-04-29] VITALS: Ht 167.6 cm; Wt 65.8 kg
[2021-04-29] MEDS ORDERED: DONNATAL/LIDOCAINE/MAALOX 30 ML SUSP PO NR ×2 (16:30→18:30)
[2021-04-29] MEDS ORDERED: SODIUM CHLORIDE 0.9% 1000ML 500 ML IV ONE (16:45)
[2021-04-29 16:53] LABS: BASOPHILS # (AUTO) 0.1 (0.0-0.1); BASOPHILS % 0.6 % (0.0-1.0); EOSINOPHILS # (AUTO) 0.1 (0.0-0.4); EOSINOPHILS % 0.8 % (0.0-6.0); HEMATOCRIT 37.7 % (34.2-44.1); HEMOGLOBIN 11.9 g/dL (12.0-16.0); LYMPHOCYTES # (AUTO) 1.4 (1.0-3.2); LYMPHOCYTES % 16.4 % (18.0-39.1); MEAN CORPUSCULAR HEMOGLOBIN 28.8 pg (28-32); MEAN CORPUSCULAR HGB CONC 31.6 g/dL (31-35); MEAN CORPUSCULAR VOLUME 91.3 fL (81-99); MONOCYTES # (AUTO) 0.5 (0.2-0.8); MONOCYTES % 5.6 % (4.4-11.3); NEUTROPHILS # (AUTO) 6.4 (2.1-6.9); NEUTROPHILS % 76.2 % (38.7-80.0); PLATELET COUNT 205 x10e3/uL (140-360); RED BLOOD COUNT 4.13 x10e6/uL (3.6-5.1); RED CELL DISTRIBUTION WIDTH 14.3 % (11.7-14.4)
[2021-04-29 17:14] LABS: ALBUMIN 4.5 g/dL (3.5-5.0); ALBUMIN/GLOBULIN RATIO 1.1 (0.8-2.0); ANION GAP 14.6 mmol/L (8-16); CALCIUM 10.8 mg/dL (8.4-10.2); CREATININE, SERUM 0.82 mg/dL (0.57-1.11); POTASSIUM 3.6 mmol/L (3.5-5.1)
[2021-04-29 17:20] LABS: CREATINE KINASE MB 1.3 ng/mL (0-5.0)
[2021-04-29 17:35] LABS: CLARITY,URINE SL CLOUDY (CLEAR); COLOR,URINE YELLOW (YELLOW); KETONES,URINE NEGATIVE (NEGATIVE); LEUKOCYTE ESTERASE ,URINE NEGATIVE (NEGATIVE); NITRITE,URINE NEGATIVE (NEGATIVE); PROTEIN,URINE DIPSTICK 2+ (NEGATIVE); URINE UROBILINOGEN 0.2 mg/dL (0.2 - 1)
[2021-04-29 17:47] LABS: BACTERIA,URINE FEW /HPF; RBC,URINE 0-5 /HPF (0-5); WBC,URINE (MAN) 0-5 /HPF (0-5)
[2021-04-29] MEDS ORDERED: SODIUM CHLORIDE 0.9% 500ML 500 ML ONE (17:54)
[2021-04-29] MEDS ORDERED: SODIUM CHLORIDE 0.9% 50ML 50 ML ONE (18:04)
[2021-04-29] MEDS ORDERED: IOPAMIDOL 370 MG/ML 200 ML INFUS..BTL INJ ONE (18:04)
[2021-04-29] MEDS ORDERED: CASIRIVIMAB/IMDEVIMAB 10 ML in SODIUM CHLORIDE 0.9% 100 ML IV ONE (19:15)
[2021-04-29] MEDS ORDERED: ONDANSETRON ODT8 MG PO (19:16)
[2021-04-29] MEDS ORDERED: PEPCID20 MG PO (19:16)
[2021-04-29] MEDS ORDERED: ACETAMINOPHEN 325 MG TAB PO ONE (21:00)
[2021-04-29] MEDS ORDERED: TRAMADOL HCL 50 MG TAB PO ONE (21:15)
== END 2021-04-29 21:46 | disposition home or self-care (01) ==
LOC: ER 16:38
DX: R10.13 Epigastric pain (principal); R11.0 Nausea; I10 Essential (primary) hypertension; R94.31 Abnormal electrocardiogram [ECG] [EKG]; Z95.5 Presence of coronary angioplasty implant and graft
CPT/HCPCS: 36415; 71045; 74177; 80053; 81001; 82550; 82553; 83690; 83880; 84484; 85025; 93005; 99284; C9113; J7050; Q9967; U0002; J7030; J7040

== ENCOUNTER 2024-08-16 18:42 | Inpatient (IN) | payer MEDICARE ==
[~2024-08-16] VITALS: Ht 167.6 cm; Wt 65.8 kg
[~2024-08-16 18:42] MED LIST changes: +CEFUROXIME250 MG PO; +CEPHALEXIN500 MG PO; +DOCUSATE SODIU100 MG PO; +ONDANSETRON ODT8 MG PO; +PEPCID20 MG PO; +SENNA LAX8.6 MG PO; +TOPROL XL25 MG PO
[2024-08-16 18:45] VITALS: TEMP 98.3
[2024-08-16 20:56] LABS: BASOPHILS % 0.2 % (0.0-1.0); HEMATOCRIT 42.5 % (34.2-44.1); HEMOGLOBIN 13.5 g/dL (12.0-16.0); LYMPHOCYTES # (AUTO) 1.4 (1.0-3.2); LYMPHOCYTES % 9.9 % (18.0-39.1); MEAN CORPUSCULAR HEMOGLOBIN 28.7 pg (28-32); MEAN CORPUSCULAR HGB CONC 31.8 g/dL (31-35); MEAN CORPUSCULAR VOLUME 90.4 fL (81-99); MONOCYTES # (AUTO) 0.8 (0.2-0.8); MONOCYTES % 5.8 % (4.4-11.3); NEUTROPHILS # (AUTO) 11.6 (2.1-6.9); NEUTROPHILS % 83.7 % (38.7-80.0); PLATELET COUNT 163 x10e3/uL (140-360); RED CELL DISTRIBUTION WIDTH 14.9 % (11.7-14.4); WHITE BLOOD COUNT 13.88 x10e3/uL (4.8-10.8)
[2024-08-16 21:21] LABS: ALBUMIN 3.4 g/dL (3.5-5.0); ALBUMIN/GLOBULIN RATIO 0.6 (0.8-2.0); ANION GAP 19.3 mmol/L (8-16); BILIRUBIN,TOTAL 1.5 mg/dL (0.2-1.2); CALCIUM 11.2 mg/dL (8.4-10.2); CREATININE, SERUM 1.39 mg/dL (0.57-1.11); POTASSIUM 4.3 mmol/L (3.5-5.1); TOTAL PROTEIN 8.7 g/dL (6.5-8.1)
[2024-08-16 21:25] LABS: CLARITY,URINE CLOUDY (CLEAR); COLOR,URINE YELLOW (YELLOW); GLUCOSE, URINE NEGATIVE (NEGATIVE); KETONES,URINE NEGATIVE (NEGATIVE); LEUKOCYTE ESTERASE ,URINE SMALL (NEGATIVE); NITRITE,URINE POSITIVE (NEGATIVE); PH,URINE 8.5 (5 - 7); PROTEIN,URINE DIPSTICK >=300 (NEGATIVE); URINE UROBILINOGEN 1 mg/dL (0.2 - 1)
[2024-08-16 21:26] LABS: BILIRUBIN,URINE SMALL (NEGATIVE)
[2024-08-16 21:27] LABS: TROPONIN I 0.034 ng/mL (0-0.300)
[2024-08-16 21:35] LABS: BACTERIA,URINE MODERATE /HPF; EPITHELIAL CELLS,URINE RARE /LPF; TRIPLE PHOSPHATE CRYSTAL,UR FEW (FEW)
[2024-08-16] MEDS ORDERED: IOPAMIDOL 370 MG/ML 100 ML INFUS..BTL INJ ONE (21:58)
[2024-08-16] MEDS ORDERED: SODIUM CHLORIDE 0.9% 1000ML 1,000 ML ONE (23:11)
[2024-08-16] MEDS: SODIUM CHLORIDE 0.9% 1000ML 1,000 ML IV ONE ×2 (23:17)
[2024-08-17] VITALS (12 sets, daily range): BP systolic 140–177; BP diastolic 78–93; PULSE 74–94; RESP 16–24; TEMP 97.7–98.4; O2SAT 97–100
[2024-08-17] MEDS: SODIUM CHLORIDE 0.9% 1000ML 1,000 ML IV SCH (03:30)
[2024-08-17] MEDS ORDERED: TRAZODONE HCL50 MG PO (04:22)
[2024-08-17] MEDS ORDERED: AMLODIPINE BESYL5 MG PO (04:22)
[2024-08-17] MEDS ORDERED: AMITRIPTYLINE H25 MG PO (04:22)
[2024-08-17] MEDS ORDERED: METOPROLOL SUCC50 MG PO (04:22)
[2024-08-17] MEDS ORDERED: HYZAAR 100-12.1 EACH PO (04:22)
[2024-08-17] MEDS ORDERED: ALBUTEROL/IPRATROPIUM 3 ML NEB NEB PRN (07:45)
[2024-08-17] MEDS: METOPROLOL SUCCINATE 50 MG TAB XL PO SCH (09:00)
[2024-08-17] MEDS: AMLODIPINE BESYLATE 5 MG TAB PO SCH (09:00)
[2024-08-17] MEDS: AMITRIPTYLINE HCL 25 MG TAB PO SCH (09:00)
[2024-08-17] MEDS: SENNOSIDES 8.6 MG TAB PO SCH (09:00)
[2024-08-17 10:59] LABS: TROPONIN I 0.033 ng/mL (0-0.300)
[2024-08-17] MEDS: METOPROLOL TARTRATE INJ 1 MG/ML VIAL IV PRN (15:53)
[2024-08-17] MEDS: Morphine 2mg Syringe 2 MG/ML SYR IV PRN (16:53)
[2024-08-17] MEDS ORDERED: TRAZODONE HCL 50 MG TAB PO PRN (21:00)
[2024-08-18] VITALS (12 sets, daily range): BP systolic 137–176; BP diastolic 82–107; PULSE 79–103; RESP 15–20; TEMP 97–98.3; O2SAT 95–100
[2024-08-18] MEDS: ONDANSETRON HCL INJ 2MG/ML 2ML 2 MG/ML VIAL IV PRN (01:09)
[2024-08-18 05:11] LABS: BASOPHILS # (AUTO) 0.1 (0.0-0.1); BASOPHILS % 0.6 % (0.0-1.0); EOSINOPHILS # (AUTO) 0.5 (0.0-0.4); EOSINOPHILS % 4.7 % (0.0-6.0); HEMATOCRIT 34.4 % (34.2-44.1); HEMOGLOBIN 10.6 g/dL (12.0-16.0); LYMPHOCYTES # (AUTO) 2.4 (1.0-3.2); LYMPHOCYTES % 24.9 % (18.0-39.1); MEAN CORPUSCULAR HEMOGLOBIN 29.1 pg (28-32); MEAN CORPUSCULAR HGB CONC 30.8 g/dL (31-35); MEAN CORPUSCULAR VOLUME 94.5 fL (81-99); MONOCYTES # (AUTO) 0.8 (0.2-0.8); NEUTROPHILS # (AUTO) 5.9 (2.1-6.9); NEUTROPHILS % 61.5 % (38.7-80.0); PLATELET COUNT 135 x10e3/uL (140-360); RED BLOOD COUNT 3.64 x10e6/uL (3.6-5.1); WHITE BLOOD COUNT 9.58 x10e3/uL (4.8-10.8)
[2024-08-18 05:46] LABS: ALBUMIN 2.6 g/dL (3.5-5.0); ALBUMIN/GLOBULIN RATIO 0.7 (0.8-2.0); ANION GAP 14.1 mmol/L (8-16); CALCIUM 8.8 mg/dL (8.4-10.2); CREATININE, SERUM 0.97 mg/dL (0.57-1.11); TOTAL PROTEIN 6.2 g/dL (6.5-8.1)
[2024-08-18 05:51] LABS: POTASSIUM 3.1 mmol/L (3.5-5.1)
[2024-08-18 05:53] LABS: TROPONIN I 0.025 ng/mL (0-0.300)
[2024-08-18] MEDS: DEXTROSE 50% SYRINGE 50 ML IV PRN (08:07)
[2024-08-18] MEDS ORDERED: FUROSEMIDE INJ 10 MG/ML 4 ML VIAL ONE (09:38)
[2024-08-18] MEDS: METOPROLOL SUCCINATE 50 MG TAB XL PO SCH (09:45)
[2024-08-18] MEDS ORDERED: POTASSIUM CHLORIDE 20 MEQ TAB CR PO ONE (11:00)
[2024-08-18] MEDS: POTASSIUM CHLORIDE 20MEQ/100ML 100 ML IV ONE (11:52)
[2024-08-18] MEDS: CLONIDINE HCL 0.2 MG/24 HR 1 EA PATCH TOP SCH (11:59)
[2024-08-19] VITALS (10 sets, daily range): BP systolic 140–176; BP diastolic 72–99; PULSE 83–92; RESP 17–20; TEMP 97–98.6; O2SAT 96–100
[2024-08-19 07:51] LABS: ANION GAP 12.1 mmol/L (8-16); CALCIUM 9.3 mg/dL (8.4-10.2)
[2024-08-19 08:02] LABS: POTASSIUM 3.1 mmol/L (3.5-5.1)
[2024-08-19] MEDS: METOPROLOL SUCCINATE 50 MG TAB XL PO SCH (10:43)
[2024-08-19] MEDS: MAGNESIUM HYDROXIDE 30 ML UDC PO SCH (15:16)
[2024-08-20] VITALS (9 sets, daily range): BP systolic 137–167; BP diastolic 78–97; PULSE 55–89; RESP 15–20; TEMP 97.3–98.1; O2SAT 94–100
[2024-08-21 05:23] VITALS: BP 150/89; PULSE 77; RESP 20; TEMP 97.1; O2SAT 97
[2024-08-21 05:54] LABS: BASOPHILS % 0.4 % (0.0-1.0); EOSINOPHILS # (AUTO) 0.6 (0.0-0.4); EOSINOPHILS % 7.4 % (0.0-6.0); LYMPHOCYTES # (AUTO) 2.3 (1.0-3.2); LYMPHOCYTES % 28.9 % (18.0-39.1); MEAN CORPUSCULAR HEMOGLOBIN 28.7 pg (28-32); MEAN CORPUSCULAR VOLUME 92.4 fL (81-99); MONOCYTES # (AUTO) 0.7 (0.2-0.8); NEUTROPHILS # (AUTO) 4.2 (2.1-6.9); NEUTROPHILS % 53.9 % (38.7-80.0); PLATELET COUNT 141 x10e3/uL (140-360); RED BLOOD COUNT 3.14 x10e6/uL (3.6-5.1); RED CELL DISTRIBUTION WIDTH 14.7 % (11.7-14.4); WHITE BLOOD COUNT 7.81 x10e3/uL (4.8-10.8)
[2024-08-21 06:27] LABS: ANION GAP 10.4 mmol/L (8-16); CALCIUM 8.8 mg/dL (8.4-10.2); CREATININE, SERUM 0.91 mg/dL (0.57-1.11); POTASSIUM 3.4 mmol/L (3.5-5.1)
[2024-08-21 06:33] VITALS: PULSE 86; RESP 20; O2SAT 98
[2024-08-21 08:51] VITALS: BP 169/95; PULSE 74; RESP 15; TEMP 97.6; O2SAT 98
[2024-08-21] MEDS: DEXTROSE 5%/0.45% SOD CHL 1,000 ML IV SCH (10:02)
[2024-08-21 10:52] VITALS: BP 169/95; PULSE 74; RESP 15; TEMP 97.6; O2SAT 98
[2024-08-21] MEDS ORDERED: PROPOFOL IV EMULSION 10 MG/ML 20 ML VIAL ONE (13:22)
[2024-08-21] MEDS ORDERED: SEVOFLURANE INHAL SOLN 250 ML PEN BTL ONE (13:22)
[2024-08-21] MEDS ORDERED: ACETAMINOPHEN 1000 MG/100 ML 100 ML IV ONE (13:22)
[2024-08-21] MEDS ORDERED: FENTANYL CITRATE/PF 100MCG/2 ML INJ ONE ×2 (13:22→15:17)
[2024-08-21] MEDS ORDERED: LIDOCAINE HCL 2% LOCAL INJ 5 ML SDV VIAL INJ ONE (13:22)
[2024-08-21 15:10] VITALS: BP 177/98; PULSE 76; RESP 16; TEMP 98.2; O2SAT 100
[2024-08-21] MEDS ORDERED: DEXAMETHASONE SOD PHOS INJ 4 MG/ML SDV ONE (15:26)
[2024-08-21] MEDS ORDERED: ONDANSETRON HCL INJ 2MG/ML 2ML 2 MG/ML VIAL ONE (15:49)
[2024-08-21 20:00] VITALS: BP 145/95; PULSE 80; RESP 18; TEMP 97.7; O2SAT 99
[2024-08-22] VITALS (8 sets, daily range): BP systolic 123–154; BP diastolic 54–93; PULSE 74–100; RESP 16–22; TEMP 97.7–98.7; O2SAT 95–100
[2024-08-22 06:04] LABS: BASOPHILS % 0.1 % (0.0-1.0); HEMATOCRIT 34.5 % (34.2-44.1); HEMOGLOBIN 10.5 g/dL (12.0-16.0); LYMPHOCYTES % 14.2 % (18.0-39.1); MEAN CORPUSCULAR HEMOGLOBIN 28.9 pg (28-32); MEAN CORPUSCULAR HGB CONC 30.4 g/dL (31-35); MONOCYTES # (AUTO) 0.2 (0.2-0.8); MONOCYTES % 3.1 % (4.4-11.3); NEUTROPHILS # (AUTO) 5.8 (2.1-6.9); NEUTROPHILS % 81.8 % (38.7-80.0); PLATELET COUNT 170 x10e3/uL (140-360); RED BLOOD COUNT 3.63 x10e6/uL (3.6-5.1); RED CELL DISTRIBUTION WIDTH 14.6 % (11.7-14.4); WHITE BLOOD COUNT 7.11 x10e3/uL (4.8-10.8)
[2024-08-22 10:55] LABS: ANION GAP 15.6 mmol/L (8-16); CREATININE, SERUM 1.04 mg/dL (0.57-1.11); POTASSIUM 3.6 mmol/L (3.5-5.1)
[2024-08-23] VITALS (10 sets, daily range): BP systolic 127–147; BP diastolic 74–92; PULSE 72–91; RESP 16–21; TEMP 97.8–98.3; O2SAT 95–99
[2024-08-23 05:35] LABS: CALCIUM 9.7 mg/dL (8.4-10.2); CREATININE, SERUM 1.3 mg/dL (0.57-1.11)
[2024-08-23] MEDS: DOCUSATE SODIUM 100 MG CAP PO PRN (14:51)
[2024-08-24] VITALS (10 sets, daily range): BP systolic 133–156; BP diastolic 71–91; PULSE 71–100; RESP 15–20; TEMP 97.6–98.3; O2SAT 95–100
[2024-08-24 07:51] LABS: ANION GAP 14.3 mmol/L (8-16); CALCIUM 9.6 mg/dL (8.4-10.2); CREATININE, SERUM 1.18 mg/dL (0.57-1.11); POTASSIUM 4.3 mmol/L (3.5-5.1)
[2024-08-24] MEDS: Morphine 2mg Syringe 2 MG/ML SYR IV PRN (23:44)
[2024-08-25] VITALS (7 sets, daily range): BP systolic 138–174; BP diastolic 62–98; PULSE 79–108; RESP 17–20; TEMP 97.5–98.1; O2SAT 95–99
[2024-08-25] MEDS ORDERED: CLONIDINE1 EAC1 TOP (10:45)
[2024-08-25] MEDS: NIFEDIPINE CR 30 MG TAB PO SCH (12:07)
== END 2024-08-25 17:40 | disposition home health service (06) | DRG 659 ==
LOC: ER 18:55 → ERHOLD 08-17 01:23 → MED/SURG 08-17 02:12
PROVIDERS: ADMIT Internal Medicine; ATTEND Internal Medicine
PROC: 02HV33Z Insertion of Infusion Device into Superior Vena Cava, Percutaneous Approach (ICD-10-PCS; 2024-08-17)
PROC: 0T768DZ Dilation of Right Ureter with Intraluminal Device, Via Natural or Artificial Opening Endoscopic (ICD-10-PCS; 2024-08-21)
PROC: BT1F1ZZ Fluoroscopy of Left Kidney, Ureter and Bladder using Low Osmolar Contrast (ICD-10-PCS; principal; 2024-08-21 15:15)
DX: N13.6 Pyonephrosis (principal); G93.41 Metabolic encephalopathy; I69.351 Hemiplegia and hemiparesis following cerebral infarction affecting right dominant side; Z16.12 Extended spectrum beta lactamase (ESBL) resistance; Z16.24 Resistance to multiple antibiotics; B96.4 Proteus (mirabilis) (morganii) as the cause of diseases classified elsewhere; N17.9 Acute kidney failure, unspecified; D64.9 Anemia, unspecified; R31.29 Other microscopic hematuria; N26.1 Atrophy of kidney (terminal); I25.10 Atherosclerotic heart disease of native coronary artery without angina pectoris; E83.51 Hypocalcemia; R63.0 Anorexia; E11.649 Type 2 diabetes mellitus with hypoglycemia without coma; Z79.02 Long term (current) use of antithrombotics/antiplatelets; Z95.5 Presence of coronary angioplasty implant and graft; Z68.23 Body mass index [BMI] 23.0-23.9, adult
CPT/HCPCS: 36415; 36569; 70450; 71045; 74176; 74181; 74420; 76705; 78708; 80048; 80053; 81001; 82140; 82550; 82948; 83605; 83690; 84484; 85025; 87040; 87086; 87186; 93005; 94799; 99252; 99283; A9562; C1769; C2617; J0692; J1100; J1940; J2003; J2185; J2270; J2405; J3480; J7030; J7799; Q9967

== ENCOUNTER → 2024-09-29 | Day surgery (SDC) | payer MEDICARE ==
[~2024-09-29] MED LIST changes: +AMITRIPTYLINE H25 MG PO; +AMLODIPINE BESYL5 MG PO; +CEFTRIAXONE 1 GM VIAL ONE; +CLONIDINE1 EAC1 TOP; +DEXAMETHASONE SOD PHOS INJ 4 MG/ML SDV ONE; +ESMOLOL HCL 100MG/10ML 10 MG/ML VIAL ONE; +FENTANYL CITRATE/PF 100MCG/2 ML INJ ONE; +HYZAAR 100-12.1 EACH PO; +LACTATED RINGER'S 1,000 ML ONE; +LIDOCAINE HCL 2% LOCAL INJ 5 ML SDV VIAL INJ ONE; +MULTI-VITAMIN1 EACH PO; +ONDANSETRON HCL INJ 2MG/ML 2ML 2 MG/ML VIAL ONE; +PHENYLEPHRINE HCL 1% 10 MG/ML VIAL ONE; +PLAVIX75 MG PO; +PROBIOTIC; +PROPOFOL IV EMULSION 10 MG/ML 20 ML VIAL ONE; +SEVOFLURANE INHAL SOLN 250 ML PEN BTL ONE; +SODIUM CHLORIDE 0.9% INJ 10 ML VIAL ONE; +TRAZODONE HCL50 MG PO; +VITAMIN C1000 MG PO
[2024-09-29 06:59] LABS: BASOPHILS # (AUTO) 0.1 (0.0-0.1); BASOPHILS % 0.7 % (0.0-1.0); EOSINOPHILS # (AUTO) 0.4 (0.0-0.4); EOSINOPHILS % 4.7 % (0.0-6.0); HEMATOCRIT 34.8 % (34.2-44.1); HEMOGLOBIN 11.3 g/dL (12.0-16.0); LYMPHOCYTES # (AUTO) 2.1 (1.0-3.2); LYMPHOCYTES % 24.6 % (18.0-39.1); MEAN CORPUSCULAR HEMOGLOBIN 27.8 pg (28-32); MEAN CORPUSCULAR HGB CONC 32.5 g/dL (31-35); MEAN CORPUSCULAR VOLUME 85.7 fL (81-99); MONOCYTES # (AUTO) 0.5 (0.2-0.8); MONOCYTES % 5.8 % (4.4-11.3); NEUTROPHILS # (AUTO) 5.4 (2.1-6.9); NEUTROPHILS % 63.8 % (38.7-80.0); PLATELET COUNT 308 x10e3/uL (140-360); RED BLOOD COUNT 4.06 x10e6/uL (3.6-5.1); RED CELL DISTRIBUTION WIDTH 14.3 % (11.7-14.4); WHITE BLOOD COUNT 8.48 x10e3/uL (4.8-10.8)
[2024-09-29 08:20] VITALS: TEMP 97.5
[2024-09-29] MEDS: FENTANYL CITRATE/PF 100MCG/2 ML INJ IV ONE (09:00)
[2024-09-29 09:20] VITALS: BP 133/86; PULSE 84; RESP 18; O2SAT 98
[2024-09-29] MEDS: ONDANSETRON HCL INJ 2MG/ML 2ML 2 MG/ML VIAL IV ONE (09:20)
== END | disposition home or self-care (01) ==
LOC: OR 06:02
PROVIDERS: ATTEND Urology
DX: N20.1 Calculus of ureter (principal); Z46.6 Encounter for fitting and adjustment of urinary device; L89.159 Pressure ulcer of sacral region, unspecified stage; L89.309 Pressure ulcer of unspecified buttock, unspecified stage; N39.0 Urinary tract infection, site not specified; N13.30 Unspecified hydronephrosis; I10 Essential (primary) hypertension; I25.10 Atherosclerotic heart disease of native coronary artery without angina pectoris; I48.91 Unspecified atrial fibrillation; F32.A Depression, unspecified; K21.9 Gastro-esophageal reflux disease without esophagitis; I69.351 Hemiplegia and hemiparesis following cerebral infarction affecting right dominant side; Z79.02 Long term (current) use of antithrombotics/antiplatelets; Z79.899 Other long term (current) drug therapy; Z95.5 Presence of coronary angioplasty implant and graft
CPT/HCPCS: 36415; 52353; 74420; 85025; C1758 ×2; C1769; J0696; J1100; J2003; J2371; J2405; J2704; J3010; J7121